=== PATIENT | female | born 1990 | race Caucasian/White ===

== ENCOUNTER → 2019-03-02 09:22 | Outpatient (CLI) | payer BC, SELFPAY ==
[2019-03-02 10:19] LABS: Add Manual Diff / Slide Review NO; Basophils Absolute Auto 0 /uL (0-100); Basophils Percent Auto 0.9 % (0-2); Eosinophils Absolute Auto 200 /uL (0-450); Eosinophils Percent Auto 4.2 % (2-4); Hematocrit 41.2 % (36-46); Lymphocytes Absolute Auto 2400 /uL (1100-4500); Lymphocytes Percent Auto 47.5 % (25-40); Mean Corpuscular HGB Conc 33.9 % (30-36); Mean Corpuscular Hemoglobin 31.6 PG (26-34); Mean Corpuscular Volume 93.3 fL (80-100); Monocytes Absolute Auto 400 /uL (0-900); Monocytes Percent Auto 7.4 % (3-14); Neutrophils Absolute Auto 2000 /uL (1500-7000); Platelet Count 239 X10^3/uL (150-400); Red Blood Cell Count 4.41 X10^6/uL (4.0-5.2); Red Cell Distribution Width 12.5 % (11.6-14.8)
[2019-03-02 11:43] LABS: Alanine Aminotransferase 17 IU/L (9-52); Albumin 4.5 g/dL (3.5-5.0); Albumin Globulin Ratio 1.6 (1.0-2.8); Alkaline Phosphatase 85 U/L (38-126); Aspartate Aminotransferase 18 IU/L (14-36); Bilirubin Total 0.4 mg/dL (0.2-1.3); Blood Urea Nitrogen 12 mg/dL (7-17); Calcium 9.1 mg/dL (8.4-10.2); Carbon Dioxide 27 mmol/L (22-32); Chloride 103 mmol/L (98-107); Cholesterol 143 mg/dL (140-199); Estimated Glomerular Filt Rate > 60.0 mL/min (>60); Globulin 2.8 g/dL (1.7-4.1); Glucose 91 mg/dL (70-100); HDL Cholesterol 62 mg/dL (40-60); HEMOLYSIS < 15 (0-50); LDL Cholesterol Calculated 69 mg/dL (<100); Potassium 4.5 mmol/L (3.4-5.1); Sodium 139 mmol/L (137-145); Total Protein 7.3 g/dL (6.3-8.2); Triglycerides 62 mg/dL (35-150)
[2019-03-02 12:08] LABS: TSH w/ Reflex to FT4 1.32 uIU/mL (0.47-4.68)
== END ==
PROVIDERS: Visit Provider Nurse Practitioner
DX: Z00.00 Encounter for general adult medical examination without abnormal findings (principal)
CPT/HCPCS: 36415; 80053; 80061; 84443; 85025

== ENCOUNTER → 2019-03-23 12:46 | Outpatient (CLI) | payer BC, SELFPAY ==
--- NOTE | 2019-03-23 12:48 | DI.US.S_ITS ---
LIMITED ULTRASOUND OF RIGHT BREAST: 03/23/2019 CLINICAL: Palpable right breast lump. Comparison is made [facility] Real-time and Doppler ultrasound of the right breast 4 o'clock region were performed. Pathak scale images of the real-time examination were reviewed. Targeted ultrasound was performed in the region of the patient's reported focal palpable abnormality located at the 4:00 position 3 cm from the nipple as indicated by the patient. No underlying breast mass or abnormality is identified. IMPRESSION: NEGATIVE 1) No ultrasound findings to explain patient's reported focal painful palpable abnormality in the medial right breast located at the 4:00 position 3 cm from the nipple as indicated by the patient. Recommend clinical follow-up for further evaluation and management of the patient's reported symptoms. 2) There is no sonographic evidence of malignancy in the imaged areas of the right breast. Annual screening mammography beginning at age 40 is recommended, unless earlier high-risk screening is warranted due to individual patient risk factors for the development of breast malignancy. The patient is advised to monitor her breasts and to return sooner for re-evaluation should she feel anything grow or change. This exam was interpreted at Station ID: [id number]. Electronically Signed By: Martin Garg M.D. ecl/:03/23/2019 13:51:36 letter sent: Clinical Evaluation Ultrasound BI-RADS: 1 Negative
--- NOTE | 2019-03-23 12:48 | DI.MG.S_ITS ---
BILATERAL DIGITAL DIAGNOSTIC MAMMOGRAM 3D/2D: 03/23/2019 CLINICAL: Baseline exam. Right breast lump. No prior exams were available for comparison. The tissue of both breasts is extremely dense, which lowers the sensitivity of mammography. There is a triangular marker overlying the skin of the medial right breast at the site of the patient's reported palpable abnormality. There is no underlying mammographic abnormality. No significant masses, calcifications, or other findings are seen in either breast. IMPRESSION: INCOMPLETE: NEEDS ADDITIONAL IMAGING EVALUATION No mammographic abnormality to correlate with the site of the patient's reported focal palpable abnormality of the medial right breast. Targeted diagnostic ultrasound recommended for further evaluation, which will be performed immediately following this exam. This exam was interpreted at Station ID: [id number]. NOTE: For mammograms, a report in lay terms will be sent to the patient. Approximately 15% of breast malignancies will not be visualized mammographically. In the management of a palpable breast mass, a negative mammogram must not discourage biopsy of a clinically suspicious lesion. Electronically Signed By: Martin Garg M.D. ecl/:03/23/2019 13:42:46 ACR BI-RADS Category 0: Incomplete [id number]
== END ==
PROVIDERS: PCP Nurse Practitioner; Visit Provider Nurse Practitioner
DX: R92.8 Other abnormal and inconclusive findings on diagnostic imaging of breast (principal); N64.4 Mastodynia; N63.14 Unspecified lump in the right breast, lower inner quadrant
CPT/HCPCS: 76642; 77066; G0279

== ENCOUNTER → 2020-05-17 12:28 | Outpatient (CLI) | payer BC, SELFPAY ==
--- NOTE | 2020-05-17 12:30 | DI.US.S_ITS ---
PROCEDURE: US PELVIC COMPLETE INDICATIONS: ABDOMINAL PAIN/PAINFUL PERIODS TECHNIQUE: Real-time scanning was performed of the pelvic organs, with image documentation. Additional endovaginal scanning was necessary due to incomplete visualization of the adnexal and endometrial structures by transabdominal scanning. COMPARISON: [facility], , PELVIC COMPLETE, 02/03/2018, 20:27. FINDINGS: Transabdominal scanning: Limited scanning through the kidneys shows no hydronephrosis. No pathologic free abdominal or pelvic fluid. Endovaginal scanning: Uterus: Uterus is normal in size at 4.5 x 5.1 x 7.6 cm, retroverted. The endometrium measures 9.4 mm in combined thickness. Ovaries: Normal on the right measuring 3.3 x 1.4 x 1.4 cm with several follicular cysts. The left ovary measures 2.7 x 1.1 x 1.5 cm and contains what appears to be a hemorrhagic left ovarian cyst measuring only 1.6 x 1.0 x 1.0 cm. Several adnexal prominent pelvic veins are noted, right greater than left. IMPRESSION: No evidence of uterine fibroid or endometrial lining mass or abnormal fluid collection. Incidental note is made of a left-sided small hemorrhagic ovarian cysts and several small right follicular cyst. A definite source of current symptomatology is not found. Dictated by: Cal Gross M.D. on 05/17/2020 at 14:58 Approved by: Cal Gross M.D. on 05/17/2020 at 15:01
== END ==
PROVIDERS: PCP Nurse Practitioner; Referring Provider Nurse Practitioner; Visit Provider Nurse Practitioner
DX: N94.6 Dysmenorrhea, unspecified (principal); R10.9 Unspecified abdominal pain; N83.01 Follicular cyst of right ovary; N83.202 Unspecified ovarian cyst, left side
CPT/HCPCS: 76830; 76856

== ENCOUNTER → 2020-10-30 10:26 | Outpatient (CLI) | payer BC, SELFPAY ==
[2020-10-31 07:08] LABS: Candida species Negative (Negative); Gardnerella vaginalis Negative (Negative); Trichomoas vaginalis Negative (Negative)
== END ==
PROVIDERS: PCP Nurse Practitioner; Visit Provider Obstetrics & Gynecology
DX: N89.8 Other specified noninflammatory disorders of vagina (principal)
CPT/HCPCS: 87480; 87510; 87660

== ENCOUNTER 2021-02-06 18:23 | Emergency (ER) | payer BC, SELFPAY ==
[2021-02-06 18:28] VITALS: BP 153/77; PULSE 78; RESP 18; TEMP 36.8; O2SAT 99
[2021-02-06 19:01] LABS: Add Manual Diff / Slide Review NO; Basophils Absolute Auto 0 /uL (0-100); Basophils Percent Auto 0.4 % (0-2); Eosinophils Absolute Auto 100 /uL (0-450); Hematocrit 39.3 % (36-46); Hemoglobin 13.7 g/dL (12.0-16.0); Lymphocytes Absolute Auto 3500 /uL (1100-4500); Lymphocytes Percent Auto 32.8 % (25-40); Mean Corpuscular HGB Conc 34.9 % (30-36); Mean Corpuscular Hemoglobin 31.8 PG (26-34); Monocytes Absolute Auto 600 /uL (0-900); Monocytes Percent Auto 5.5 % (3-14); Neutrophils Absolute Auto 6500 /uL (1500-7000); Neutrophils Percent Auto 60.3 % (50-75); Platelet Count 262 X10^3/uL (150-400); Red Blood Cell Count 4.32 X10^6/uL (4.0-5.2); Red Cell Distribution Width 12.3 % (11.6-14.8); White Blood Cell Count 10.7 X10^3/uL (4.5-11.0)
[2021-02-06 19:07] LABS: INR 1.1 (0.9-1.3); Prothrombin Time 12.3 SECONDS (10.1-12.7)
[2021-02-06 19:10] LABS: PTT Partial Thromboplastin Tim 34 SECONDS (26.4-36.2)
[2021-02-06 19:16] LABS: Alanine Aminotransferase 13 IU/L (<35); Albumin 4.5 g/dL (3.5-5.0); Albumin Globulin Ratio 1.5 (1.0-2.8); Alkaline Phosphatase 81 U/L (38-126); Aspartate Aminotransferase 24 IU/L (14-36); BUN Creatinine Ratio 12.9 (6-22); Bilirubin Total 0.3 mg/dL (0.2-1.3); Blood Urea Nitrogen 8 mg/dL (7-17); Calcium 9.5 mg/dL (8.4-10.2); Carbon Dioxide 26 mmol/L (22-32); Chloride 103 mmol/L (98-107); Estimated Glomerular Filt Rate > 60.0 mL/min (>60); Globulin 3.1 g/dL (1.7-4.1); Glucose 95 mg/dL (70-100); HEMOLYSIS < 15 (0-50); Lipase 57 U/L (23-300); Potassium 3.7 mmol/L (3.4-5.1); Sodium 137 mmol/L (137-145); Total Protein 7.6 g/dL (6.3-8.2)
--- NOTE | 2021-02-06 20:00 | ED.GENADULT ---
HPI - General Adult General Chief complaint: Abdominal Pain Stated complaint: bad abdominal pain, nausea, no appetite,acid feel Time Seen by Provider: 02/06/21 20:00 Source: patient Mode of arrival: Ambulatory Limitations: no limitations History of Present Illness HPI narrative: Patient is a 30-year-old female here for evaluation of upper abdominal pain for the past 2 days. She has also had some nausea and no appetite. She states that she recently completed a course of antibiotics for urinary tract infection that was prescribed by an outside facility. She has had ?stomach issues ?for some time now. She has seen her primary doctor. She has also seen a GI provider who was going to schedule her for a endoscopy and also a colonoscopy. She was unable to complete this because when she was doing the GI prep she became so dehydrated that she needed to come to the emergency department for IV fluids. States she has not followed up with GI provider since then. She states she has not had any imaging of her abdomen done up to this point. Has not tried anything for her symptoms prior to arrival. Related Data Home Medications Medication Instructions Recorded Confirmed lactobacillus combination no.8 3 3,000 mmu cells PO DAILY 07/10/20 12/11/20 billion cell capsule methylcellulose (laxative) 2 gram PO DAILY 07/10/20 12/11/20 Previous Rx's Medication Instructions Recorded ciprofloxacin HCl 500 mg tablet 500 mg PO BID #9 tab 01/30/21 Allergies Allergy/AdvReac Type Severity Reaction Status Date / Time No Known Drug Allergies Allergy Verified 02/06/21 20:04 Review of Systems Constitutional Constitutional: Denies fatigue, Denies fever(s) and Denies headache(s) ENT Ears, Nose, Mouth, and Throat: Denies headache(s) Cardiovascular Cardiovascular: Denies chest pain and Denies dyspnea Respiratory Respiratory: Denies dyspnea Gastrointestinal Gastrointestinal: Reports abdominal pain, Denies change in bowel habits, Reports nausea and Denies vomiting Genitourinary Genitourinary: Denies dysuria Genitourinary: Denies dysuria and Denies vaginal discharge Musculoskeletal Musculoskeletal: Denies arthralgias and Denies myalgias Integumentary/Breasts Skin/Breast: Denies rash Neurologic Neurologic: Denies behavioral changes and Denies headache(s) Psychiatric Psychiatric: Denies behavioral changes Endocrine Endocrine: Denies fatigue Hematologic/Lymphatic On Anticoagulants: No Allergic/Immunologic Allergic/Immunologic: Denies urticaria Patient History Medical History Abdominal pain Bloating Change in bowel habits Diarrhea Follicular cyst of left ovary Hemorrhagic cyst of right ovary Migraine with aura Surgical History Anesthesia History of thumb surgery (~1993) [place] teeth removed (~2010) Family History Father Hyperlipidemia Mother Breast cancer Hypertension Grandmother Diabetes mellitus Grandfather Prostate cancer Social History Smoking Status: Never smoker Smoking Status: Never smoker alcohol intake frequency: holidays/special occasions only Exam Initial Vital Signs Initial Vital Signs: Vital Signs Temperature 98.3 F 02/06/21 18:28 Pulse Rate 78 02/06/21 18:28 Respiratory Rate 18 02/06/21 18:28 Blood Pressure 153/77 H 02/06/21 18:28 Pulse Oximetry 99 02/06/21 18:28 Const General: cooperative, healthy appearing and comfortable Limitations: mental status not altered HENNV Head: normal to inspection and normocephalic Resp Effort & Inspection: normal respiratory effort Auscultation: clear to auscultation bilaterally Cardio Rate: regular rate Rhythm: regular rhythm GI Inspection: non-distended Palpation: soft, No firm, No guarding and tender (Upper abdomen) Skin Lesions: no lesions Rashes: no rashes Neuro General: patient alert, patient awake and patient oriented x3 Cognition: normal cognition Speech: speech normal Extrem General: normal to inspection and capillary refill normal Psych Appearance: grossly normal and well kempt Course Orders Ordered: Discontinued Medications Sodium Chloride (Normal Saline 0.9%) 1,000 mls @ 1,000 mls/hr IV BOLUS ONE Stop: 02/06/21 20:59 Last Infusion: 02/06/21 21:17 Dose: 0 mls/hr Documented by: Admin: 02/06/21 20:23 Dose: 1,000 mls/hr Documented by: ROSSI Ondansetron HCl (Ondansetron 4 Mg Odt Prepack) 1 bottle MISC SEEINSTR ONE Stop: 02/06/21 21:18 Last Admin: 02/06/21 21:22 Dose: 1 bottle Documented by: ROSSI Vital Signs Vital signs: Vital Signs - 8 hr 02/06/21 18:28 Temperature 98.3 F Pulse Rate 78 Respiratory Rate 18 Blood Pressure 153/77 H Pulse Oximetry 99 Medical Decision Making Lab Data Lab results reviewed: Yes I reviewed the patient's lab results. Result diagrams: 02/06/21 18:50 02/06/21 18:50 Labs: Lab Results 02/06/21 02/06/21 02/06/21 Range/Units 18:50 18:50 18:50 WBC 10.7 (4.5-11.0) X10^3/uL RBC 4.32 (4.0-5.2) X10^6/uL Hgb 13.7 (12.0-16.0) g/dL Hct 39.3 (36-46) % MCV 91.0 (80-100) fL MCH 31.8 (26-34) PG MCHC 34.9 (30-36) % RDW 12.3 (11.6-14.8) % Plt Count 262 (150-400) X10^3/uL Neut % (Auto) 60.3 (50-75) % Lymph % (Auto) 32.8 (25-40) % Dolores % (Auto) 5.5 (3-14) % Eos % (Auto) 1.0 L (2-4) % Baso % (Auto) 0.4 (0-2) % Neut # (Auto) 6500 (6338-7423) /uL Lymph # (Auto) 3500 (7701-0964) /uL Dolores # (Auto) 600 (0-900) /uL Eos # (Auto) 100 (0-450) /uL Baso # (Auto) 0 (0-100) /uL PT 12.3 (10.1-12.7) SECONDS INR 1.1 (0.9-1.3) APTT 34 (26.4-36.2) SECONDS Sodium 137 (137-145) mmol/L Potassium 3.7 (3.4-5.1) mmol/L Chloride 103 (98-107) mmol/L Carbon Dioxide 26 (22-32) mmol/L BUN 8 (7-17) mg/dL Creatinine 0.62 (0.52-1.04) mg/dL Estimated GFR > 60.0 (>60) mL/min BUN/Creatinine Ratio 12.9 (6-22) Glucose 95 (70-100) mg/dL Calcium 9.5 (8.4-10.2) mg/dL Total Bilirubin 0.3 (0.2-1.3) mg/dL AST 24 (14-36) IU/L ALT 13 (<35) IU/L Alkaline Phosphatase 81 (38-126) U/L Total Protein 7.6 (6.3-8.2) g/dL Albumin 4.5 (3.5-5.0) g/dL Globulin 3.1 (1.7-4.1) g/dL Albumin/Globulin Ratio 1.5 (1.0-2.8) Lipase 57 (23-300) U/L Point of Care Testing Test Results Negative Urine Dip Bedside Urine Glucose Negative Bedside Urine Bilirubin - Negative Bedside Urine Ketone + 15 Urine Specific [place] 1.030 Bedside Urine Occult Blood +/- Bedside Urine pH 6 Bedside Urine Protein - Negative Bedside Urine Urobilinogen - Negative Bedside Urine Nitrite - Negative Bedside Urine Leukocytes - Negative Esterase Point of care testing: Point of Care Testing Test Results Negative Urine Dip Bedside Urine Glucose Negative Bedside Urine Bilirubin - Negative Bedside Urine Ketone + 15 Urine Specific [place] 1.030 Bedside Urine Occult Blood +/- Bedside Urine pH 6 Bedside Urine Protein - Negative Bedside Urine Urobilinogen - Negative Bedside Urine Nitrite - Negative Bedside Urine Leukocytes - Negative Esterase Imaging Data CT scan - abdomen/pelvis: Radiologist's Impression: [address] [id number] Scan ReportSigned Patient: Sandy Horn EMR#: [id number]: [id number]:[id number]/Sex: 30 / FDate of Service: 02/06/21Loc: EDAccession Number: [id number] Procedure: CT abdomen pelvis w con Ordering Provider: Paolo Borrero D.O. PROCEDURE: CT ABDOMEN PELVIS W CON INDICATIONS: Generalized abdominal pain TECHNIQUE: After the administration of intravenous contrast, 5 mm thick sections acquired from the diaphragm to the symphysis. 5 mm coronal and sagittal reformats were acquired. For radiation dose reduction, the following was used: automated exposure control, adjustment of mA and/or kV according to patient size. COMPARISON: None. FINDINGS: Image quality: Excellent. ABDOMEN: Lung bases: Lung bases are clear. Heart size is normal. Solid organs: Liver is normal in size and enhancement. Gallbladder is normal. Biliary system is non dilated. Pancreas enhances normally. Spleen is normal in size and enhancement. No adrenal nodules. Kidneys demonstrate normal size and enhancement, without hydronephrosis. Peritoneum and bowel: Bowel loops demonstrate normal wall thickness and caliber. No free fluid or air. Normal appendix. Nodes and vessels: No retroperitoneal or mesenteric adenopathy by size criteria. Aorta and inferior vena cava are normal in size. Miscellaneous: No ventral hernias. PELVIS: Genitourinary: Bladder wall thickness is normal. Retroverted uterus. Normal right ovary. Dominant 2.2 cm follicle associated with the left ovary. Miscellaneous: No inguinal hernias or adenopathy. Bones: No suspicious bony lesions. No vertebral body compression fractures. IMPRESSION: 1. No acute process. Dictated by: Lesa Rod M.D. on 02/06/2021 at 20:56 Approved by: Lesa Rod M.D. on 02/06/2021 at 21:00 [facility] Narrative Medical decision making narrative: Patient has a very benign abdominal exam today. CT scan of her abdomen shows no acute pathology. Her gallbladder was normal the CT scan. Her labs are normal. LFTs lipase normal. Unfortunately do not have a definitive diagnosis of her symptoms. Informed her that she needs to contact the GI provider back so that she can get rescheduled to have the colonoscopy and endoscopy rescheduled. She is taking probiotics. No further workup needed the emergency department today. No indication for new antibiotic treatment. No indication for surgical consultation. She was given return precautions. She expressed understanding and agreement. Discharge Plan Departure Patient Disposition: Home Clinical Impression: Abdominal pain Instructions: DI for Abdominal Pain-Adult Activity Restrictions/Additional Instructions: You can take Tylenol and/or ibuprofen for any discomfort. I recommend you continue with your probiotic. You can also consider taking famotidine/Prilosec. This may help with your symptoms. Also contact your GI doctor for follow-up. Return to the emergency department for any new or worsening symptoms Prescriptions: No Action ciprofloxacin HCl 500 mg tablet 500 mg PO BID Qty: 9 RF: 0 Citrucel Sugar Free Powder 2 gram PO DAILY RF: 0 Adult Probiotic 3 billion cell capsule 3,000 mmu cells PO DAILY RF: 0 Referrals: Samantha Jacques ARNP [Primary Care Provider] -
[2021-02-06] MEDS: SODIUM CHLORIDE 0.9% 1,000 ML 1000 ML IV (20:23)
[2021-02-06 20:25] VITALS: BP 120/79; PULSE 83; O2SAT 99
[2021-02-06 20:30] VITALS: BP 122/79; PULSE 85; O2SAT 98
[2021-02-06 21:00] VITALS: BP 121/70; PULSE 79; O2SAT 99
[2021-02-06] MEDS: ONDANSETRON 4 MG ODT PREPACK 1 BOTTLE MISC (21:22)
== END 2021-02-06 21:27 | disposition home or self-care (01) ==
PROVIDERS: Emergency Provider Emergency Medicine; PCP Nurse Practitioner
DX: R10.10 Upper abdominal pain, unspecified (principal); R11.0 Nausea
CPT/HCPCS: 36415; 74177; 80053; 81003; 81025; 83690; 85025; 85610; 85730; 96360; 99284; Q9967

== ENCOUNTER → 2021-02-15 13:21 | Outpatient (CLI) | payer BC, SELFPAY ==
[2021-02-15 13:26] LABS: Bacteria Urine None Seen; WBC Urine None Seen (0-5/HPF)
[2021-02-15 14:29] LABS: Appearance Urine UA CLEAR; Bilirubin Urine UA NEGATIVE (NEGATIVE); Color Urine UA YELLOW; Glucose Urine UA NEGATIVE (Negative); Ketones Urine UA TRACE (NEGATIVE); Leukocyte Esterase Urine UA NEGATIVE (NEGATIVE); Nitrite Urine UA NEGATIVE (Negative); Occult Blood Urine UA 1+ (Negative); Protein Urine UA NEGATIVE (Negative); Specific Gravity Urine UA <=1.005 (1.000-1.035); Urobilinogen Urine UA 0.2 E.U./dL (0.2)
[2021-02-15 14:31] LABS: Add Manual Diff / Slide Review NO; Basophils Absolute Auto 0 /uL (0-100); Basophils Percent Auto 0.4 % (0-2); Eosinophils Absolute Auto 100 /uL (0-450); Eosinophils Percent Auto 0.6 % (2-4); Hemoglobin 14.4 g/dL (12.0-16.0); Lymphocytes Absolute Auto 3200 /uL (1100-4500); Mean Corpuscular HGB Conc 34.2 % (30-36); Mean Corpuscular Hemoglobin 31.6 PG (26-34); Mean Corpuscular Volume 92.4 fL (80-100); Monocytes Absolute Auto 600 /uL (0-900); Neutrophils Absolute Auto 5600 /uL (1500-7000); Platelet Count 261 X10^3/uL (150-400); Red Blood Cell Count 4.55 X10^6/uL (4.0-5.2); Red Cell Distribution Width 12.5 % (11.6-14.8); White Blood Cell Count 9.4 X10^3/uL (4.5-11.0)
[2021-02-15 14:34] LABS: pH Urine UA 5.5 (4.5-8.0)
[2021-02-15 14:36] LABS: Culture Indicated Urine Cult Not Indicated; RBC Urine 1-5/HPF (0-5/HPF)
[2021-02-15 15:01] LABS: HCG Quantitative /Beta subunit < 2.4 mIU/mL
[2021-02-15 15:04] LABS: Free T3, Triiodothyronine Free 3.02 pg/mL (2.77-5.27); Free T4, Direct Thyroxine 1.22 ng/dL (0.78-2.19)
[2021-02-15 15:17] LABS: Thyroid Stimulating Hormone 0.735 uIU/mL (0.47-4.68)
== END ==
PROVIDERS: PCP Nurse Practitioner; Referring Provider Nurse Practitioner; Visit Provider Nurse Practitioner
DX: Z00.00 Encounter for general adult medical examination without abnormal findings (principal); N91.2 Amenorrhea, unspecified; R10.2 Pelvic and perineal pain
CPT/HCPCS: 36415; 81001; 84439; 84443; 84481; 84702; 85025

== ENCOUNTER → 2021-02-21 15:25 | Outpatient (CLI) | payer BC, SELFPAY ==
--- NOTE | 2021-02-21 15:26 | DI.US.S_ITS ---
PROCEDURE: US PELVIC COMPLETE INDICATIONS: ABDOMINAL/PELVIC PAIN TECHNIQUE: Real-time scanning was performed of the pelvic organs, with image documentation. Additional endovaginal scanning was necessary due to incomplete visualization of the adnexal and endometrial structures by transabdominal scanning. COMPARISON: [facility], US, US PELVIC COMPLETE, 07/10/2020, 10:19. FINDINGS: Uterus: Uterus is normal in size measuring 8.3 x 5.5 x 4.8 cm. . The endometrium measures 4.5 mm in combined thickness. A nabothian cyst is seen. Ovaries: The right ovary measures 3.6 x 1.2 x 1.2 cm. The left ovary measures 4.1 x 1.2 x 1.9 cm. Normal appearing follicles are seen bilaterally. The left ovary has a 4 x 3 x 5 millimeter hyperechoic focus consistent with corpus albicans, a benign incidental finding. Other: Prevoid volume was 352 cc. Postvoid volume was 136 cc. Bilateral ureteral jets are identified. IMPRESSION: 1. No acute ultrasound abnormality of the pelvis. 2. Normal appearing follicles bilaterally. Dictated by: Eddy Lake M.D. on 02/21/2021 at 17:29 Approved by: Eddy Lake M.D. on 02/22/2021 at 8:37
== END ==
PROVIDERS: PCP Nurse Practitioner; Referring Provider Nurse Practitioner; Visit Provider Nurse Practitioner
DX: R10.2 Pelvic and perineal pain (principal)
CPT/HCPCS: 76830; 76856

== ENCOUNTER → 2021-02-27 09:16 | Outpatient (CLI) | payer BC, SELFPAY ==
[2021-02-27 10:07] LABS: Alanine Aminotransferase 13 IU/L (<35); Albumin 4.6 g/dL (3.5-5.0); Albumin Globulin Ratio 1.5 (1.0-2.8); Alkaline Phosphatase 75 U/L (38-126); Aspartate Aminotransferase 26 IU/L (14-36); BUN Creatinine Ratio 14.1 (6-22); Bilirubin Total 0.3 mg/dL (0.2-1.3); Blood Urea Nitrogen 9 mg/dL (7-17); Calcium 9.5 mg/dL (8.4-10.2); Carbon Dioxide 28 mmol/L (22-32); Chloride 102 mmol/L (98-107); Cholesterol 158 mg/dL (140-199); Estimated Glomerular Filt Rate > 60.0 mL/min (>60); Globulin 3.1 g/dL (1.7-4.1); Glucose 107 mg/dL (70-100); HDL Cholesterol 61 mg/dL (40-60); HEMOLYSIS < 15 (0-50); LDL Cholesterol Calculated 87 mg/dL (<100); Potassium 3.9 mmol/L (3.4-5.1); Sodium 138 mmol/L (137-145); Total Protein 7.7 g/dL (6.3-8.2); Triglycerides 50 mg/dL (35-150)
== END ==
PROVIDERS: PCP Nurse Practitioner; Referring Provider Nurse Practitioner; Visit Provider Nurse Practitioner
DX: Z00.00 Encounter for general adult medical examination without abnormal findings (principal)
CPT/HCPCS: 36415; 80053; 80061

== ENCOUNTER → 2021-04-09 13:00 | Outpatient (CLI) | payer BC, SELFPAY ==
[2021-04-12 09:58] LABS: Chili Pepper IgE <0.10 kU/L (Class 0); Goat's Milk IgE <0.10 kU/L (Class 0); Grape IgE <0.10 kU/L (Class 0); Green Bell Pepper IgE <0.10 kU/L (Class 0); Hazelnut IgE <0.10 kU/L (Class 0); Macadamia Nut IgE <0.10 kU/L (Class 0); Pistachio Nut IgE <0.10 kU/L (Class 0)
== END ==
PROVIDERS: PCP Nurse Practitioner; Referring Provider Nurse Practitioner; Visit Provider Nurse Practitioner
DX: G44.89 Other headache syndrome (principal); K58.9 Irritable bowel syndrome, unspecified; T78.1XXA Other adverse food reactions, not elsewhere classified, initial encounter
CPT/HCPCS: 36415; 86003

== ENCOUNTER → 2021-05-06 13:57 | Outpatient (CLI) | payer BC, SELFPAY ==
--- NOTE | 2021-05-06 13:59 | DI.MRI.S_ITS ---
PROCEDURE: MR HEAD/BRAIN WO/W CON INDICATIONS: Facial myokymia TECHNIQUE: Noncontrast sagittal T1 spin echo, axial T2 fast spin echo, axial FLAIR, axial gradient echo, axial diffusion and ADC through the brain. Axial/sagittal/coronal 3-D CISS, thin-slice axial T1 spin echo with fat saturation through the skull base. After the administration of contrast, axial and coronal thin-slice T1 spin echo with fat saturation through the skull base, axial T1 spin echo with fat saturation through the brain. COMPARISON: None. FINDINGS: Image quality: Excellent. Cranial nerves: Visualized cranial nerves are within normal limits. Specifically, the optic nerves, bilateral trigeminal nerves, and bilateral 7/8 nerve complexes are within normal limits. Trochlear and abducens nerves are within normal limits. CSF spaces: Ventricles are normal in size and shape. No extra-axial fluid collections. Basal cisterns are patent. Brain: No intracranial bleeds or mass effects. No abnormal intracranial enhancement. Diffusion weighted images show no acute ischemic insults. Pathak-white matter interface is intact. Brainstem is normal. Normal intravascular flow voids are present. Skull and face: Calvarial marrow signal is normal. Orbits appear normal. Sinuses: Sinuses and mastoids appear clear. IMPRESSION: 1. Negative examination. 2. No explanation for myokymia. Dictated by: Porfirio Randolph M.D. on 05/06/2021 at 14:41 Approved by: Porfirio Randolph M.D. on 05/06/2021 at 14:46
== END ==
PROVIDERS: PCP Nurse Practitioner; Referring Provider Otolaryngology; Visit Provider Otolaryngology
DX: G51.4 Facial myokymia (principal); R51.9 Headache, unspecified
CPT/HCPCS: 70553

== ENCOUNTER → 2021-05-13 12:16 | Outpatient (CLI) | payer BC, SELFPAY ==
[2021-05-14 15:49] LABS: Candida species Negative (Negative); Gardnerella vaginalis Negative (Negative); Trichomoas vaginalis Negative (Negative)
== END ==
PROVIDERS: PCP Nurse Practitioner; Visit Provider Obstetrics & Gynecology
DX: N89.8 Other specified noninflammatory disorders of vagina (principal); N94.9 Unspecified condition associated with female genital organs and menstrual cycle; R10.2 Pelvic and perineal pain
CPT/HCPCS: 87480; 87510; 87660

== ENCOUNTER → 2021-06-06 11:45 | Outpatient (CLI) | payer BC, SELFPAY ==
[2021-06-06 11:58] LABS: WBC Urine None Seen (0-5/HPF)
[2021-06-06 13:19] LABS: Appearance Urine UA CLEAR; Bilirubin Urine UA NEGATIVE (NEGATIVE); Color Urine UA YELLOW; Glucose Urine UA NEGATIVE (Negative); Ketones Urine UA NEGATIVE (NEGATIVE); Leukocyte Esterase Urine UA NEGATIVE (NEGATIVE); Nitrite Urine UA NEGATIVE (Negative); Occult Blood Urine UA 1+ (Negative); Protein Urine UA NEGATIVE (Negative); Specific Gravity Urine UA <=1.005 (1.000-1.035); Urobilinogen Urine UA 0.2 E.U./dL (0.2)
[2021-06-06 13:36] LABS: Bacteria Urine Occasional (0-1); Culture Indicated Urine Cult Not Indicated; RBC Urine 1-5/HPF (0-5/HPF); Squamous Epithelial Cell Urine 0-1 /HPF (0-5/HPF); pH Urine UA 6.5 (4.5-8.0)
== END ==
PROVIDERS: PCP Nurse Practitioner; Referring Provider Nurse Practitioner; Visit Provider Obstetrics & Gynecology
DX: R30.0 Dysuria (principal); R39.89 Other symptoms and signs involving the genitourinary system
CPT/HCPCS: 81001; 87086

== ENCOUNTER → 2021-06-07 11:27 | Outpatient (CLI) | payer BC, SELFPAY ==
[2021-06-08 07:16] LABS: RPR Screen Non Reactive (Non Reactive)
[2021-06-08 20:30] LABS: HSV I/II IgM <0.91 Ratio (0.00-0.90)
[2021-06-10 17:43] LABS: HIV 1 & 2 Ab/Ag 4th Gen Combo NEGATIVE (NEGATIVE); Hep C Virus Ab w/Reflex Quant NEGATIVE s/c (NEGATIVE); Hepatitis B Surface Antigen NEGATIVE s/c (NEGATIVE)
== END ==
PROVIDERS: PCP Nurse Practitioner; Referring Provider Nurse Practitioner; Visit Provider Nurse Practitioner
DX: Z77.21 Contact with and (suspected) exposure to potentially hazardous body fluids (principal)
CPT/HCPCS: 36415; 86592; 86694; 86803; 87340; 87389

== ENCOUNTER → 2021-06-10 12:29 | Outpatient (CLI) | payer BC, SELFPAY ==
--- NOTE | 2021-06-10 12:30 | DI.US.S_ITS ---
PROCEDURE: US PELVIC COMPLETE INDICATIONS: PELVIC PAIN TECHNIQUE: Real-time scanning was performed of the pelvic organs, with image documentation. Additional endovaginal scanning was necessary due to incomplete visualization of the adnexal and endometrial structures by transabdominal scanning. COMPARISON: [facility], , US PELVIC COMPLETE, 02/21/2021, 16:02. FINDINGS: Uterus: Uterus is normal in size at 7.3 x 4.1 x 5.3 cm. The endometrium measures 3.5 mm in combined thickness. Ovaries: Normal exam. Ovaries measuring 3.1 x 1.2 x 1.7 cm on the right and 4.0 x 1.3 x 1.1 cm on the left. No adnexal masses seen. Other: No pathologic free abdominal or pelvic fluid. IMPRESSION: No source for pelvic pain identified. Dictated by: Stephane Cui [facility] Interpreted: Cal Gross MD on 06/10/2021 at 13:43 Transcribed by: MINOO on 06/10/2021 at 13:44 Approved by: Cal Gross M.D. on 06/10/2021 at 16:37
== END ==
PROVIDERS: PCP Nurse Practitioner; Referring Provider Obstetrics & Gynecology; Visit Provider Obstetrics & Gynecology
DX: R10.2 Pelvic and perineal pain (principal)
CPT/HCPCS: 76830; 76856

== ENCOUNTER → 2021-06-12 11:55 | Outpatient (CLI) | payer BC, SELFPAY ==
--- NOTE | 2021-06-12 12:22 | DI.CT.S_ITS ---
PROCEDURE: CT KIDNEY URETER BLADDER (KUB) INDICATIONS: Rule out kidney stones TECHNIQUE: Axial sections were acquired from the lung bases to the pubic symphysis. Coronal and sagittal reformats were performed. For radiation dose reduction, the following was used: automated exposure control, adjustment of mA and/or kV according to patient size. COMPARISON:[facility], CT, CT ABDOMEN PELVIS W CON, 02/06/2021, 20:03. FINDINGS: Image quality: Excellent. Lung bases: Unremarkable. Heart: No significant findings. URINARY: Right Kidney: No stones or hydronephrosis. Right Ureter: No hydroureter. Left Kidney: No stones or hydronephrosis. Left Ureter: No hydroureter. Bladder: Normal wall thickness. No stones. ABDOMEN: Liver: Unremarkable. Gallbladder: Unremarkable. Biliary ducts: Unremarkable. Pancreas: Unremarkable. Spleen: Unremarkable. Adrenal Glands: Unremarkable. Stomach and Bowel: Stomach, small bowel loops, and colon are unremarkable. Moderate amount of stool noted in the right and transverse colon. Visualized portions of the appendix are normal. Peritoneum: No abnormal intraperitoneal fluid. No free air. Ventral Wall: No hernia. Abdominal Nodes: No enlarged retroperitoneal or mesenteric lymph nodes. Vessels: Aorta and inferior vena cava are normal in size. PELVIS: Pelvic Organs: Unremarkable. Multiple pelvic phleboliths are noted which are stable compared to prior CT scan. Pelvic Nodes: Unremarkable. Miscellaneous: No inguinal hernias are seen. Bones: Unremarkable. IMPRESSION: 1. No renal stone or hydronephrosis. 2. No free fluid or free air. 3. Visualized portions of the appendix are normal. Please note the appendix is not identified in its entirety and earliest manifestation of appendicitis is not completely excluded by this study. 4. No dilated loops of bowel. 5. Moderate fecal loading involving the right and transverse colon. Dictated by: Melisa Reinoso MD, PhD on 06/12/2021 at 13:16 Approved by: Melisa Reinoso MD, PhD on 06/12/2021 at 13:22
== END ==
PROVIDERS: PCP Nurse Practitioner; Referring Provider Nurse Practitioner; Visit Provider Nurse Practitioner
DX: R31.9 Hematuria, unspecified (principal); R30.0 Dysuria; M54.9 Dorsalgia, unspecified
CPT/HCPCS: 74176

== ENCOUNTER → 2021-07-03 16:09 | Outpatient (CLI) | payer BC, SELFPAY ==
[2021-07-03 20:18] LABS: Bacteria Urine None Seen; WBC Urine None Seen (0-5/HPF)
[2021-07-03 20:29] LABS: Appearance Urine UA CLEAR; Bilirubin Urine UA NEGATIVE (NEGATIVE); Color Urine UA YELLOW; Glucose Urine UA NEGATIVE (Negative); Ketones Urine UA NEGATIVE (NEGATIVE); Leukocyte Esterase Urine UA NEGATIVE (NEGATIVE); Nitrite Urine UA NEGATIVE (Negative); Occult Blood Urine UA 3+ (Negative); Protein Urine UA NEGATIVE (Negative); Urobilinogen Urine UA 0.2 E.U./dL (0.2)
[2021-07-03 20:48] LABS: pH Urine UA 6.5 (4.5-8.0)
[2021-07-03 20:55] LABS: Culture Indicated Urine Cult Not Indicated; RBC Urine 5-10/HPF (0-5/HPF)
[2021-07-03 21:57] LABS: Urine N gonorrhoeae NOT DETECTED
[2021-07-03 22:18] LABS: Urine Chlamydia NOT DETECTED
== END ==
PROVIDERS: PCP Nurse Practitioner; Visit Provider Obstetrics & Gynecology
DX: R30.0 Dysuria (principal); R10.2 Pelvic and perineal pain; Z11.3 Encounter for screening for infections with a predominantly sexual mode of transmission
CPT/HCPCS: 81001; 87491; 87591

== ENCOUNTER → 2021-07-11 09:35 | Outpatient (CLI) | payer BC, SELFPAY ==
[2021-07-11 10:54] LABS: Appearance Urine UA CLEAR; Bilirubin Urine UA NEGATIVE (NEGATIVE); Glucose Urine UA NEGATIVE (Negative); Ketones Urine UA NEGATIVE (NEGATIVE); Leukocyte Esterase Urine UA NEGATIVE (NEGATIVE); Nitrite Urine UA NEGATIVE (Negative); Occult Blood Urine UA NEGATIVE (Negative); Protein Urine UA NEGATIVE (Negative); Specific Gravity Urine UA <=1.005 (1.000-1.035); Urobilinogen Urine UA 0.2 E.U./dL (0.2)
[2021-07-11 11:31] LABS: Bacteria Urine None Seen; Color Urine UA STRAW; Culture Indicated Urine Cult Not Indicated; RBC Urine None Seen (0-5/HPF); Squamous Epithelial Cell Urine 1-5 /HPF (0-5/HPF); WBC Urine None Seen (0-5/HPF)
== END ==
PROVIDERS: PCP Nurse Practitioner; Referring Provider Nurse Practitioner; Visit Provider Nurse Practitioner
DX: R31.9 Hematuria, unspecified (principal); R10.2 Pelvic and perineal pain
CPT/HCPCS: 81001

== ENCOUNTER → 2021-11-04 10:33 | Outpatient (CLI) | payer BC, SELFPAY ==
--- NOTE | 2021-11-04 10:35 | DI.CT.S_ITS ---
PROCEDURE: CT ABDOMEN PELVIS WO/W CON INDICATIONS: Microscopic hematuria TECHNIQUE: Optional 5 mm thick noncontrast images acquired from the diaphragm to the symphysis pubis. After the administration of intravenous contrast, 5 mm thick images acquired from the diaphragm to the symphysis pubis after a 10-minute delay. 2 mm thick coronal and sagittal reformats were then performed of the kidneys and ureters. For radiation dose reduction, the following was used: automated exposure control, adjustment of mA and/or kV according to patient size. COMPARISON: None. FINDINGS: Image quality: Excellent. Lung bases: Lung bases are clear. Heart size is normal. Urinary system: No urinary tract calculus, hydroureteronephrosis, perinephric fat stranding, or other significant renal abnormality identified. Symmetric nephrograms. No renal mass. Urinary bladder unremarkable. Other solid organs: Normal CT appearance of the liver, spleen, pancreas, and gallbladder. No adrenal gland nodule or mass. Peritoneum and bowel: No acute enteric abnormality. Nodes and vessels: No threshold enlarged intra-abdominal or retroperitoneal lymph node identified. Nonaneurysmal abdominal aorta. Abdominal wall: No ventral hernias. Pelvis: Small volume free pelvic fluid. Grossly unremarkable uterus and ovaries. No threshold enlarged pelvic or inguinal lymph node. Bones: No suspicious bony lesions. No vertebral body compression fractures. IMPRESSION: No urinary tract calculus or other explanation for hematuria. Dictated by: Keo Alejandra M.D. on 11/04/2021 at 10:42 Approved by: Keo Alejandra M.D. on 11/04/2021 at 10:45
== END ==
PROVIDERS: PCP Nurse Practitioner; Referring Provider Urology; Visit Provider Urology
DX: R30.0 Dysuria (principal); R31.29 Other microscopic hematuria; Z77.22 Contact with and (suspected) exposure to environmental tobacco smoke (acute) (chronic)
CPT/HCPCS: 74178

== ENCOUNTER → 2022-02-18 16:55 | Outpatient (CLI) | payer BC, SELFPAY | PROVIDERS: PCP Nurse Practitioner; Visit Provider Obstetrics & Gynecology | DX: R30.0 Dysuria (principal); R35.89 Other polyuria | CPT/HCPCS: 87086 ==

== ENCOUNTER → 2022-03-04 13:08 | Outpatient (CLI) | payer BC, SELFPAY ==
--- NOTE | 2022-03-04 13:09 | DI.US.S_ITS ---
PROCEDURE: US OB <= 14 WEEKS FETUS INDICATIONS: VIABILITY AND DATES OUTSIDE/PRIOR DATING DATA: Last menstrual period (LMP): 12/25/2021. LMP-based estimated date of delivery (LG): 10/01/2022. First dating scan (date and location): 03/04/2022. Estimated date of delivery (LG) from first dating scan: 10/04/2022. The calculations are made using the ultrasound LG of 10/04/2022. TECHNIQUE: Real-time scanning was performed of the fetus and maternal pelvic organs, with image documentation. Endovaginal scanning was also performed to better visualize the fetus and maternal ovaries. COMPARISON: None. FINDINGS: Embryo: Mean gestational sac diameter 3.3 centimeters. Luis M. Cintron-rump length 2.6 centimeters. Heart rate: 171 beats per minute Maternal organs: Ovaries normal. IMPRESSION: Single live intrauterine gestation with estimated ultrasound age of 9 weeks 3 days. Estimated date of delivery 10/04/2022. We strive to produce accurate, complete, and clear reports of imaging services. To assist us in improving patient care, this report was composed using standard report templates and voice recognition software. Therefore, it may contain abnormal punctuation, insertions and/or omissions. Occasional wrong-word or sound-alike substitutions may occur. Though we review the report and make efforts to correct it, we do recommend that the report be read carefully in proper context to recognize any text inaccuracies. Dictated by: Keo Alejandra M.D. on 03/04/2022 at 15:14 Approved by: Keo Alejandra M.D. on 03/04/2022 at 15:15
[2022-03-04 15:13] LABS: Add Manual Diff / Slide Review NO; Basophils Absolute Auto 0 /uL (0-100); Basophils Percent Auto 0.3 % (0-2); Eosinophils Absolute Auto 200 /uL (0-450); Eosinophils Percent Auto 1.7 % (2-4); Hematocrit 38.9 % (36-46); Hemoglobin 13.4 g/dL (12.0-16.0); Lymphocytes Absolute Auto 2900 /uL (1100-4500); Lymphocytes Percent Auto 27.1 % (25-40); Mean Corpuscular HGB Conc 34.4 % (30-36); Mean Corpuscular Hemoglobin 31.7 PG (26-34); Mean Corpuscular Volume 92.1 fL (80-100); Monocytes Absolute Auto 600 /uL (0-900); Monocytes Percent Auto 5.7 % (3-14); Neutrophils Absolute Auto 6900 /uL (1500-7000); Neutrophils Percent Auto 65.2 % (50-75); Platelet Count 278 X10^3/uL (150-400); Red Blood Cell Count 4.23 X10^6/uL (4.0-5.2); Red Cell Distribution Width 12.6 % (11.6-14.8); White Blood Cell Count 10.6 X10^3/uL (4.5-11.0)
[2022-03-04 17:57] LABS: Appearance Urine UA CLEAR; Bilirubin Urine UA NEGATIVE (NEGATIVE); Color Urine UA YELLOW; Glucose Urine UA NEGATIVE (Negative); Ketones Urine UA NEGATIVE (NEGATIVE); Leukocyte Esterase Urine UA NEGATIVE (NEGATIVE); Nitrite Urine UA NEGATIVE (Negative); Occult Blood Urine UA NEGATIVE (Negative); Protein Urine UA NEGATIVE (Negative); Specific Gravity Urine UA <=1.005 (1.000-1.035); Urobilinogen Urine UA 0.2 E.U./dL (0.2)
[2022-03-04 18:18] LABS: pH Urine UA 6.5 (4.5-8.0)
[2022-03-05 08:08] LABS: RPR Screen Non Reactive (Non Reactive)
[2022-03-05 10:03] LABS: Varicella IgG Antibody <135 index (Immune >165)
[2022-03-06 16:04] LABS: Hepatitis B Surface Antigen NEGATIVE s/c (NEGATIVE)
[2022-03-06 16:06] LABS: HIV 1 & 2 Ab/Ag 4th Gen Combo NEGATIVE (NEGATIVE); Hep C Virus Ab w/Reflex Quant NEGATIVE s/c (NEGATIVE)
== END ==
PROVIDERS: PCP Nurse Practitioner; Referring Provider Obstetrics & Gynecology; Visit Provider Obstetrics & Gynecology
DX: Z36.87 Encounter for antenatal screening for uncertain dates (principal); Z3A.09 9 weeks gestation of pregnancy
CPT/HCPCS: 36415; 76801; 80055; 81003; 86787; 86803; 86850; 86900; 86901; 87086; 87389

== ENCOUNTER → 2022-04-09 12:27 | Outpatient (CLI) | payer BC, SELFPAY ==
[2022-04-11 19:17] LABS: AFP, Serum 15.6 ng/mL (.); Estriol, Free 0.36 ng/mL (.); Inhibin A, Dimeric 161.01 pg/mL (.); Inhibin A, MoM 0.97 (.); Maternal Ethnicity Caucasian (.); Maternal Weight 154 lbs (.); Number of Fetuses No (.); OSBR Risk 1 IN 10000 (.); Results Report (.); Test Results *Screen Positive* (.); hCG, MoM 1.88 (.); hCG, Serum 103631 mIU/mL (.)
== END ==
PROVIDERS: PCP Nurse Practitioner; Referring Provider Obstetrics & Gynecology; Visit Provider Obstetrics & Gynecology
DX: Z34.82 Encounter for supervision of other normal pregnancy, second trimester (principal); Z3A.15 15 weeks gestation of pregnancy
CPT/HCPCS: 36415; 82105; 82677; 84702; 86336

== ENCOUNTER → 2022-05-20 12:11 | Outpatient (CLI) | payer BC, SELFPAY ==
[2022-05-20 12:37] LABS: Add Manual Diff / Slide Review NO; Basophils Absolute Auto 0 /uL (0-100); Basophils Percent Auto 0.4 % (0-2); Eosinophils Absolute Auto 100 /uL (0-450); Hematocrit 38.2 % (36-46); Hemoglobin 12.9 g/dL (12.0-16.0); Lymphocytes Absolute Auto 2600 /uL (1100-4500); Lymphocytes Percent Auto 29.8 % (25-40); Mean Corpuscular HGB Conc 33.6 % (30-36); Mean Corpuscular Volume 92.2 fL (80-100); Monocytes Absolute Auto 500 /uL (0-900); Monocytes Percent Auto 5.5 % (3-14); Neutrophils Absolute Auto 5400 /uL (1500-7000); Neutrophils Percent Auto 63.3 % (50-75); Platelet Count 263 X10^3/uL (150-400); Red Blood Cell Count 4.15 X10^6/uL (4.0-5.2); Red Cell Distribution Width 12.5 % (11.6-14.8); White Blood Cell Count 8.6 X10^3/uL (4.5-11.0)
[2022-05-20 12:59] LABS: Erythrocyte Sedimentation Rate 11 MM/HR (0-20)
== END ==
PROVIDERS: PCP Nurse Practitioner; Referring Provider Obstetrics & Gynecology; Visit Provider Obstetrics & Gynecology
DX: R10.2 Pelvic and perineal pain (principal)
CPT/HCPCS: 36415; 85025; 85651

== ENCOUNTER → 2022-05-21 08:07 | Outpatient (CLI) | payer BC, SELFPAY ==
--- NOTE | 2022-05-21 08:09 | DI.US.S_ITS ---
PROCEDURE: US PELVIC COMPLETE INDICATIONS: S/P D C 04/25/2022; please evaluate for retained tissue/hematometra TECHNIQUE: Real-time scanning was performed of the pelvic organs, with image documentation. Additional endovaginal scanning was necessary due to incomplete visualization of the adnexal and endometrial structures by transabdominal scanning. COMPARISON: [facility], , US PELVIC COMPLETE, 06/10/2021, 12:08. FINDINGS: Uterus: Uterus is retroverted and normal in size at 9 x 8.1 x 5.3 cm. The myometrium is homogeneous. The endometrium measures 9 mm combined thickness. The endometrial stripe appears hypoechoic and mildly heterogeneous. No abnormal vascularity can be seen along the endometrial stripe. Note is made of prominent vessels along the surface of the uterus. Ovaries: The right ovary measures 3 x 3 x 1.7 cm and demonstrates an apparent cyst that measures up to 2 cm, which is considered to be within physiologic limits. The left ovary measures 2.4 x 1.2 x 2.7 cm. The ovaries have a normal sonographic appearance. No adnexal masses are seen. Other: No pathologic free abdominal or pelvic fluid. Note is made of dilated vessels within the left adnexal region, with the largest vessel measuring up to 6.7 mm. IMPRESSION: No abnormal vascularity can be seen along the endometrial stripe to suggest retained products of conception. Dilated uterine vessels and left adnexal vessels are seen. Please consider pelvic congestion syndrome. We strive to produce accurate, complete, and clear reports of imaging services. To assist us in improving patient care, this report was composed using standard report templates and voice recognition software. Therefore, it may contain abnormal punctuation, insertions and/or omissions. Occasional wrong-word or sound-alike substitutions may occur. Though we review the report and make efforts to correct it, we do recommend that the report be read carefully in proper context to recognize any text inaccuracies. Dictated by: Bashir Razo M.D. on 05/21/2022 at 8:22 Approved by: Bashir Razo M.D. on 05/21/2022 at 8:24
== END ==
PROVIDERS: PCP Nurse Practitioner; Referring Provider Obstetrics & Gynecology; Visit Provider Obstetrics & Gynecology
DX: R10.2 Pelvic and perineal pain (principal)
CPT/HCPCS: 76830; 76856

== ENCOUNTER → 2022-06-11 15:05 | Outpatient (CLI) | payer BC, SELFPAY ==
[2022-06-11 16:23] LABS: Add Manual Diff / Slide Review NO; Basophils Absolute Auto 0 /uL (0-100); Basophils Percent Auto 0.6 % (0-2); Eosinophils Absolute Auto 200 /uL (0-450); Eosinophils Percent Auto 2.1 % (2-4); Hematocrit 39.4 % (36-46); Hemoglobin 13.9 g/dL (12.0-16.0); Lymphocytes Absolute Auto 3300 /uL (1100-4500); Mean Corpuscular HGB Conc 35.4 % (30-36); Mean Corpuscular Hemoglobin 32.4 PG (26-34); Mean Corpuscular Volume 91.5 fL (80-100); Monocytes Absolute Auto 600 /uL (0-900); Monocytes Percent Auto 6.6 % (3-14); Neutrophils Absolute Auto 4400 /uL (1500-7000); Neutrophils Percent Auto 51.7 % (50-75); Platelet Count 277 X10^3/uL (150-400); Red Cell Distribution Width 11.8 % (11.6-14.8); White Blood Cell Count 8.5 X10^3/uL (4.5-11.0)
[2022-06-11 16:34] LABS: Appearance Urine UA CLEAR; Bilirubin Urine UA NEGATIVE (NEGATIVE); Color Urine UA YELLOW; Glucose Urine UA NEGATIVE (Negative); Ketones Urine UA NEGATIVE (NEGATIVE); Leukocyte Esterase Urine UA NEGATIVE (NEGATIVE); Nitrite Urine UA NEGATIVE (Negative); Occult Blood Urine UA 1+ (Negative); Protein Urine UA NEGATIVE (Negative); Specific Gravity Urine UA <=1.005 (1.000-1.035); Urobilinogen Urine UA 0.2 E.U./dL (0.2)
[2022-06-11 16:35] LABS: Erythrocyte Sedimentation Rate 6 MM/HR (0-20)
[2022-06-11 16:43] LABS: Alanine Aminotransferase 10 IU/L (<35); Albumin 4.3 g/dL (3.5-5.0); Albumin Globulin Ratio 1.3 (1.0-2.8); Alkaline Phosphatase 76 U/L (38-126); Aspartate Aminotransferase 20 IU/L (14-36); BUN Creatinine Ratio 18.5 (6-22); Bilirubin Total 0.2 mg/dL (0.2-1.3); Blood Urea Nitrogen 12 mg/dL (7-17); C-Reactive Protein Quant 0.9 mg/dL (<1.0); Calcium 8.9 mg/dL (8.4-10.2); Carbon Dioxide 26 mmol/L (22-32); Chloride 102 mmol/L (98-107); Estimated Glomerular Filt Rate > 60 mL/min (>60); Globulin 3.2 g/dL (1.7-4.1); Glucose 90 mg/dL (70-100); HEMOLYSIS < 15 (0-50); Potassium 4.2 mmol/L (3.4-5.1); Sodium 137 mmol/L (137-145); Total Protein 7.5 g/dL (6.3-8.2)
[2022-06-11 16:46] LABS: Amorphous Sediment Urine 1+; Bacteria Urine None Seen; Culture Indicated Urine Cult Not Indicated; RBC Urine 0-1/HPF (0-5/HPF); Squamous Epithelial Cell Urine 5-10 /HPF (0-5/HPF); WBC Urine None Seen (0-5/HPF)
[2022-06-11 17:07] LABS: HEMOLYSIS < 15 (0-50)
[2022-06-11 17:21] LABS: Vitamin B12 608 pg/mL (239-931)
[2022-06-11 17:59] LABS: Free T3, Triiodothyronine Free 3.21 pg/mL (2.77-5.27); Free T4, Direct Thyroxine 1.06 ng/dL (0.78-2.19)
[2022-06-11 19:01] LABS: Iron 149 ug/dL (37-170)
[2022-06-11 19:11] LABS: Percent Iron Saturation 36 % (15-50); Total Iron Binding Capacity 413 ug/dL (265-497); Transferrin 305 mg/dL (206-381)
== END ==
PROVIDERS: PCP Nurse Practitioner; Referring Provider Nurse Practitioner; Visit Provider Nurse Practitioner
DX: R31.29 Other microscopic hematuria (principal); R10.2 Pelvic and perineal pain; R30.0 Dysuria; R53.83 Other fatigue
CPT/HCPCS: 36415; 80053; 81001; 81002; 82607; 83540; 83550; 84439; 84443; 84481; 85025; 85651; 86140

== ENCOUNTER → 2022-08-25 14:32 | Outpatient (CLI) | payer BC, SELFPAY ==
--- NOTE | 2022-08-25 14:33 | DI.US.S_ITS ---
PROCEDURE: US PELVIC COMPLETE INDICATIONS: PAIN TECHNIQUE: Real-time scanning was performed of the pelvic organs, with image documentation. Additional endovaginal scanning was necessary due to incomplete visualization of the adnexal and endometrial structures by transabdominal scanning. COMPARISON: [facility], US, US PELVIC COMPLETE, 05/21/2022, 9:17. FINDINGS: Uterus: Uterus is retroverted and normal in size at 7.4 x 4.5 x 5.1 cm. The myometrium is homogeneous. The endometrium measures 3 mm combined thickness. Ovaries: The right ovary measures 1.9 x 2.5 x 0.9 cm, with a calculated ovarian volume of 2.1 cc. The left ovary measures 1.1 x 2.4 x 1.2 cm, with a calculated ovarian volume of 0.6 cc. The ovaries have a normal sonographic appearance. Less than 12 follicles can be seen in each ovary. No adnexal masses are seen. Other: No pathologic free abdominal or pelvic fluid. Prominent bilateral adnexal vessels are seen. The largest on the right measures 7 mm and the largest on the left measures 6 mm. IMPRESSION: Prominent bilateral adnexal vessels are seen. Please consider pelvic congestion syndrome. We strive to produce accurate, complete, and clear reports of imaging services. To assist us in improving patient care, this report was composed using standard report templates and voice recognition software. Therefore, it may contain abnormal punctuation, insertions and/or omissions. Occasional wrong-word or sound-alike substitutions may occur. Though we review the report and make efforts to correct it, we do recommend that the report be read carefully in proper context to recognize any text inaccuracies. Dictated by: Bashir Razo M.D. on 08/25/2022 at 14:48 Approved by: Bashir Razo M.D. on 08/25/2022 at 14:49
== END ==
PROVIDERS: PCP Nurse Practitioner; Referring Provider Obstetrics & Gynecology; Visit Provider Obstetrics & Gynecology
DX: R10.2 Pelvic and perineal pain (principal); N94.89 Other specified conditions associated with female genital organs and menstrual cycle
CPT/HCPCS: 76830; 76856; 93975

== ENCOUNTER → 2022-12-11 10:30 | Outpatient (CLI) | payer BC, SELFPAY ==
--- NOTE | 2022-12-11 | DI.CT.S_ITS ---
PROCEDURE: CT ANGIO ABDOMEN PELVIS INDICATIONS: PELVIC CONGESTION SYNDROME TECHNIQUE: After the administration of intravenous contrast, 2.5 mm thick sections acquired from the diaphragm to the symphysis. 10 mm maximum-intensity projection (MIP) reformats were then acquired. For radiation dose reduction, the following was used: automated exposure control. COMPARISON: [facility], , PELVIC COMPLETE, 08/25/2022, 14:57. FINDINGS: Image quality: Excellent. Lung bases: Lung bases are clear. Heart size is normal. Solid organs: Liver: The liver has no mass or intrahepatic biliary ductal dilatation. The portal vein and hepatic veins are patent. Biliary: The gallbladder has no gallstones, pericholecystic fluid, gallbladder wall thickening, or surrounding inflammatory change. Pancreas: The pancreas has no mass or ductal dilatation. There is no surrounding inflammation. Spleen: Normal size. There are no masses. Adrenals: No hypertrophy or nodules. Kidneys: No obstructive calculus or hydronephrosis. No solid mass. No cystic mass. Peritoneum and bowel: The distal esophagus and stomach are normal. The small bowel has a normal caliber and appearance. The terminal ileum is normal. The large bowel has a normal caliber and appearance. The appendix is not definitively visualized and therefore acute appendicitis cannot be excluded; however there are no secondary findings to suggest acute appendicitis. No free fluid or air. Nodes and vessels: No retroperitoneal or mesenteric adenopathy by size criteria. Aorta and inferior vena cava are normal in size. Miscellaneous: No abdominal wall mass or hernia. PELVIS: Genitourinary: The bladder is decompressed and not well evaluated on this study. Additionally there is early contrast within the bladder which limits evaluation. No bladder calcifications. Prominent vasculature around the uterus is seen. The right ovarian vein is 9 mm. The left ovarian vein is 8 mm. Bones: No suspicious bony lesions. No vertebral body compression fractures. There is leftward curvature of the lumbar spine. IMPRESSION: 1. Prominent vasculature around the uterus consistent with pelvic venous congestion. 2. Ovarian veins measure 9 mm on the right and 8 mm on the left. Greater than 5-6 mm correlates with pelvic venous congestion syndrome. Dictated by: Eddy Lake M.D. on 12/11/2022 at 11:21 Approved by: Eddy Lake M.D. on 12/11/2022 at 11:39
== END ==
PROVIDERS: PCP Nurse Practitioner; Referring Provider Nurse Practitioner Adult Health; Visit Provider Nurse Practitioner Adult Health
DX: N94.89 Other specified conditions associated with female genital organs and menstrual cycle (principal)
CPT/HCPCS: 74174; Q9967

== ENCOUNTER → 2023-01-12 13:25 | Outpatient (CLI) | payer BC, SELFPAY ==
--- NOTE | 2023-01-12 | DI.US.S_ITS ---
ULTRASOUND OF RIGHT BREAST: 01/12/2023 CLINICAL: Focal right medial breast pain. Comparison is made to exams dated: 03/23/2019 ultrasound, 01/12/2023 mammogram, and 03/23/2019 mammogram - [facility]. Ultrasound of the right breast was performed on the area of interest. Pathak scale images of the real-time examination were reviewed. IMPRESSION: NEGATIVE There is no sonographic evidence of malignancy. There is no mammographic or sonographic abnormality seen in the right breast to correspond with the pain, however, clinical followup is recommended. This exam was interpreted at Station ID: Unknown. Electronically Signed By: Evelyn bee/andrea:01/12/2023 15:20:31 Entry: - 01/13/2023 15:16:05 letter sent: Clinical Evaluation Ultrasound BI-RADS: 1 Negative
--- NOTE | 2023-01-12 13:26 | DI.MG.S_ITS ---
BILATERAL DIGITAL DIAGNOSTIC MAMMOGRAM 3D/2D: 01/12/2023 CLINICAL: Breast pain. Comparison is made to exam dated: 03/23/2019 mammogram - [facility]. Both breasts are heterogeneously dense, which may obscure small masses (category c / 51-75% glandular tissue). No significant masses, calcifications, or other findings are seen in either breast. IMPRESSION: INCOMPLETE: NEEDS ADDITIONAL IMAGING EVALUATION There is no mammographic abnormality seen in either breast to correspond with the pain, however, ultrasound is recommended. Based on Tyrer-Cuzick model (a risk assessment model), the patient's lifetime risk is 22.1% and her 10 year risk is 1.6%. If a patient has an elevated risk, a more comprehensive evaluation should be considered and/or a referral to a genetic counselor. The [place] [employer], [place] [employer], and NCCN Guidelines advise the consideration of Breast MRI as an adjunct to screening mammography in patients whose Lifetime risk to develop breast cancer is 20% or higher. This exam was interpreted at Station ID: [id number]. NOTE: For mammograms, a report in lay terms will be sent to the patient. Approximately 15% of breast malignancies will not be visualized mammographically. In the management of a palpable breast mass, a negative mammogram must not discourage biopsy of a clinically suspicious lesion. Electronically Signed By: Evelyn Gonzales M.D. lk/:01/12/2023 14:15:30 ACR BI-RADS Category 0: Incomplete 3340F
--- NOTE | 2023-01-12 13:26 | DI.US.S_ITS ---
LIMITED ULTRASOUND OF LEFT BREAST AND AXILLA: 01/12/2023 CLINICAL: Diffuse left breast pain and axilla pain. Comparison is made to exams dated: 01/12/2023 mammogram and 03/23/2019 mammogram - [facility]. Color flow ultrasound of the left breast axilla was performed on the areas of interest. Pathak scale images of the real-time examination were reviewed. IMPRESSION: NEGATIVE There is no sonographic evidence of malignancy. There is no mammographic or sonographic abnormality seen in the left breast to correspond with the pain, however, clinical followup is recommended. A 1 year screening mammogram is recommended. This exam was interpreted at Station ID: [id number]. Electronically Signed By: Evelyn bee/:01/12/2023 15:21:42 Entry: - 01/13/2023 15:16:28 letter sent: Clinical Evaluation Ultrasound BI-RADS: 1 Negative
== END ==
PROVIDERS: PCP Nurse Practitioner; Referring Provider Nurse Practitioner; Visit Provider Nurse Practitioner
DX: N64.4 Mastodynia (principal); R92.2 Inconclusive mammogram
CPT/HCPCS: 76642; 77066; G0279

== ENCOUNTER → 2023-06-12 09:34 | Outpatient (CLI) | payer BC, SELFPAY ==
[2023-06-12 10:27] LABS: Hematocrit 40.5 % (36-46); Hemoglobin 13.9 g/dL (12.0-16.0); Mean Corpuscular HGB Conc 34.4 % (30-36); Mean Corpuscular Hemoglobin 30.8 PG (26-34); Mean Corpuscular Volume 89.6 fL (80-100); Platelet Count 264 X10^3/uL (150-400); Red Blood Cell Count 4.52 X10^6/uL (4.0-5.2); Red Cell Distribution Width 12.7 % (11.6-14.8); White Blood Cell Count 7.1 X10^3/uL (4.5-11.0)
[2023-06-12 10:50] LABS: Creatinine Urine Random 83.5 mg/dL
[2023-06-12 10:53] LABS: Alanine Aminotransferase 15 IU/L (<35); Albumin 4.6 g/dL (3.5-5.0); Albumin Globulin Ratio 1.5 (1.0-2.8); Alkaline Phosphatase 83 U/L (38-126); Aspartate Aminotransferase 21 IU/L (14-36); BUN Creatinine Ratio 17.5 (6-22); Bilirubin Total 0.3 mg/dL (0.2-1.3); Blood Urea Nitrogen 11 mg/dL (7-17); Calcium 9.2 mg/dL (8.4-10.2); Carbon Dioxide 26 mmol/L (22-32); Chloride 102 mmol/L (98-107); Cholesterol 162 mg/dL (140-199); Estimated Glomerular Filt Rate > 60 mL/min (>60); Globulin 3.1 g/dL (1.7-4.1); Glucose 94 mg/dL (70-100); HDL Cholesterol 67 mg/dL (40-60); HEMOLYSIS < 15 (0-50); LDL Cholesterol Calculated 82 mg/dL (<100); Potassium 4.3 mmol/L (3.4-5.1); Sodium 137 mmol/L (137-145); Total Protein 7.7 g/dL (6.3-8.2); Triglycerides 64 mg/dL (35-150)
[2023-06-12 10:56] LABS: Microalbumin Urine Random < 0.6 mg/dL (0-1.6)
[2023-06-12 10:56] LABS: Free T3, Triiodothyronine Free 3.59 pg/mL (2.77-5.27); Free T4, Direct Thyroxine 1.06 ng/dL (0.78-2.19)
[2023-06-12 11:09] LABS: Thyroid Stimulating Hormone 1.11 uIU/mL (0.47-4.68)
== END ==
PROVIDERS: Family Provider Nurse Practitioner; PCP Nurse Practitioner; Referring Provider Nurse Practitioner; Visit Provider Nurse Practitioner
DX: Z00.00 Encounter for general adult medical examination without abnormal findings (principal)
CPT/HCPCS: 36415; 80053; 80061; 82043; 82570; 84439; 84443; 84481; 85027

== ENCOUNTER 2023-08-14 08:00 | Outpatient (RCR) | payer BC, SELFPAY ==
--- NOTE | 2023-02-28 14:10 | PT.OIE ---
Current Diagnoses Other chronic pain (02/27/23) Other specified conditions associated with female genital organs and menstrual cycle (02/27/23) Pelvic and perineal pain (02/27/23) Past Medical History Abdominal pain Anovulation Blepharospasm of left eye Bloating Change in bowel habits Depression with anxiety Diarrhea Dysmenorrhea Dyspareunia in female Fatigue Follicular cyst of left ovary Food sensitivity headache Food sensitivity with gastrointestinal symptoms Hemorrhagic cyst of right ovary History of miscarriage Microscopic hematuria Migraine with aura Normal colonoscopy Peanut allergy Pelvic congestion syndrome Secondhand smoke exposure Past Surgical History (Last Reviewed 02/04/23 @ 08:40 by ISIDRO Resendiz) Anesthesia H/O cystoscopy History of thumb surgery (~1993) [place] teeth removed (~2010) Visit Care Team Role Provider Type ISIDRO Resendiz Attending Provider Advanced Jack Frame Tender Family Provider Primary Care Provider Referring Provider Specialty: Family Practice Address: [address] [place] [address], [facility] Email: [email or web address] Therapy Initial Evaluation PT-OP-A Visit Information Start: 02/27/23 07:56 Freq: Status: Active Protocol: Document 02/27/23 08:00 LRN (Rec: 02/27/23 08:55 LRN [id number]) Out-Patient Physical Therapy Visit Information Visit Information Visit Type Initial Evaluation Visit Start Time 08:00 Visit Stop Time 08:54 Total Visit Minutes 54 Visit Number 1 Evaluation Information Evaluation Date 02/27/23 Precautions Precautions D&E after miscarriage 04/2022, Depression, MADISON's. PT-OP-B Current Condition Start: 02/27/23 07:56 Freq: Status: Active Protocol: Document 02/27/23 08:00 LRN (Rec: 02/27/23 08:55 LRN [id number]) Current Condition History of Current Condition Onset Date 04/2022 Current Complaints Pelvic pain History of Current Condition Pelvic pain onset after miscarriage of 17 wk old fetus . Pt underwent D&E in April 2022 (pt reported fetus was 11 days prior to miscarriage). She reports heavy bleeding after D&E for a month, then noticed a lot of lower trunk pain. She states 2 blood vessels were found to be dilated more than normal, then 2 months later found vessels still enlarged. Prior to had pelvic pain but they it was thought to be due to endometriosis, but had no proof. She has now been diagnosed with pelvic congestion by [facility] and was referred to to get ovarian veins embolized . Pt has chosen to not do surgery because she doesn't feel she has enough pain to merit surgery. She would rather try physical therapy first to see if it she can avoid surgery. Per intake form and pt report of PMH: Varicose veins, pelvic congestion. MADISON's thought due to allergies, 1-2 every 2 weeks. Future Testing and Treatments Planned Samantha Jacques next visit May ~ or . Developmental History Developmental History Pt reports has also been diagnosed with IBS and has had PF pain history. States after first had start of pelvic pain. First born in 2015 w/o complications and no onset of incontinence. She reports bad UTI in 2020, resulting in onset of pressure and discomfort. States she has been found to have blood in urine by Dr. Ricketts, but urethra scope found everything to be okay. She is still having microbleeding that is thought to be due to microbleeding from pelvic congestion. Pt used to exercise a lot, but since miscarriage hasn't. Found pain problem due to exercise, after exercise would experience a lot of pain. Wants to run again. Used to run 3K's after 1st . After stopped, but now jogs/walks on TM, does ALYSSA exer, Pilates and yoga at home workouts. Treatment Goals Patient/Caregiver Goals Pt goal with therapy is to relieve pelvic pain to avoid surgery. 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 PT-OP-C Subjective Start: 02/27/23 07:56 Freq: Status: Active Protocol: Document 02/27/23 08:00 LRN (Rec: 02/27/23 08:55 LRN [id number]) Patient Questionnaires Pelvic Pain and Urgency/Frequency Patient Symptom Scale Pelvic Pain Score 11 PT-OP-I Pelvic Floor Start: 02/27/23 07:56 Freq: Status: Active Protocol: Document 02/27/23 08:00 LRN (Rec: 02/27/23 08:55 LRN [id number]) Pelvic Floor Assessment Urine Pelvic Floor Surgery No Urinary Symptoms Pain Leakage Size Small Leakage Cause Cough,Sneeze Pads Used In 24 Hours 1-2 Urine Pad Type Panty Liner Bowel Bowel Symptoms Constipation Other Bowel Symptoms Diarrhea Bowel Movement Frequency Usually daily, sometimes every other day. [place] Stool Chart Comments Cycles between Constipation & Diarrhea Prolapse Prolapse Comments Bulge in area of rectum (6 of PF clock), that was spongy, and no tenderness. Not consistent with feeling of rectocele. Contraction Ability Manual Muscle Testing Left 1 Manual Muscle Testing Right 1 Manual Muscle Testing Anterior 1 Manual Muscle Testing Posterior 3 Muscle Endurance (Seconds) 10 Number of Quick Contractions In 10 3 Seconds Comments Pelvic Floor Comments Pt PF contractions are sluggish. Pt reports PF pain with menstration and occasionally with exercise. Pt lately finds exercise helps decrease pain. Pt PF pain is worse if not regular with bowel movements. PT-OP-J Posture/Palpation/Skin Start: 02/27/23 07:56 Freq: Status: Active Protocol: Document 02/27/23 08:00 LRN (Rec: 02/27/23 08:55 LRN [id number]) Posture Evaluation Position Standing Head/C-Spine Posture Neutral Position T-Spine Posture Flattened L-Spine Posture Increased Lordosis Scapula Posture (L) Neutral Arm Posture (L) Neutral,(R) Neutral Pelvis Posture Anteriorly Tilted,(R) Rotated Posterior,(R) PSIS Posterior Knee Posture (L) Genu Valgus,(R) Genu Valgus Comments Posture Comments Chest is forward over her hips , R innominate: Posterly rotated and appears posterior displaced with director of food and beverage services-anterior assessment. Palpation Assessment Location Abdomen Palpation Location Diastasis Rectus Palpation Details Umbilicus 4 above: Xiphoid Process: Closed Umbilicus 3 above: 2 finger widths Umbilicus 2 above: 2 finger widths Umbilicus 1 above: 2 finger widths Umbilicus Umbilicus: 1 below: 1 finger widths Umbilicus: 2 below: 1 finger widths Umbilicus: 3 below: 1 finger widths Umbilicus: 4 below: Pubic Symphysis closed PT-OP-K Range of Motion Start: 02/27/23 07:56 Freq: Status: Active Protocol: Document 02/27/23 08:00 LRN (Rec: 02/27/23 08:55 LRN [id number]) Lumbar Spine Range of Motion Lumbar Spine Active Degrees Testing Position Standing Flexion 115 Extension 32 Rotation Left 45 Rotation Right 40 Lateral Flexion Left 23 Lateral Flexion Right 12 Comments Trunk AROM: Flexion is 115 deg?s with 70 deg?s hip flexion, Trunk extension is 32 deg?s with 5 deg?s hip extension. 115/70 32/5 Hip Goniometric Range of Motion Hip Right Passive Testing Position Supine Internal Rotation 55 External Rotation 50 Left Passive Testing Position Supine Internal Rotation 60 External Rotation 40 Comments Visible decreased active hip IR in sitting. PT-OP-M Strength Start: 02/27/23 07:56 Freq: Status: Active Protocol: Document 02/27/23 08:00 LRN (Rec: 02/27/23 08:55 LRN [id number]) Trunk Strength Trunk Manual Muscle Testing Core Stabilization Decreased core stability with lift of R LE hip flex., L hip AD Hip Strength Hip Manual Muscle Testing Right Flexion (L2) 5 Normal Extension (S1) 5 Normal Abduction 5 Normal Adduction 5 Normal External Rotation 5 Normal Internal Rotation 5 Normal Left Flexion (L2) 5 Normal Extension (S1) 5 Normal Abduction 5 Normal Adduction 3 Fair External Rotation 5 Normal Internal Rotation 5 Normal PT-OP-Q Treatments Start: 02/27/23 07:56 Freq: Status: Active Protocol: Document 02/27/23 08:00 LRN (Rec: 02/27/23 08:55 LRN [id number]) Self-Care/Home Management Treatment Education Other Education Discussed results of evaluation, goals, and plan of care (POC). Pt agreeable to goals and POC. Pt educated in use of Bladder Diary and I/S in tracking for 1 week. Discussed use of 2 different diaries for tracking of bladder. Activities Self-Care/Home Management Activities Issued HEP: Michel ex's Quick Flicks and Long Holds. PT-OP-T Assessment and Plan Start: 02/27/23 07:56 Freq: Status: Active Protocol: Document 02/27/23 08:00 LRN (Rec: 02/27/23 08:55 LRN [id number]) Physical Therapy Assessment Rehab Potential Rehabilitation Potential Good Evaluation Complexity Number of Personal Factors/Comorbidities 1-2 Number of Body Systems Impaired 4 or More Clinical Presentation at Evaluation Evolving Impairments Impairments Activity Tolerance,Edema,Pain, Posture,ROM,Soft Tissue Mobility,Strength,Transfers Goals Four Impairment Diastasis Rectus causing core instability Impairment Initial Assessment: Umbilicus 4 above: Xiphoid Process: Closed Umbilicus 3 above: 2 finger widths Umbilicus 2 above: 2 finger widths Umbilicus 1 above: 2 finger widths Umbilicus Umbilicus: 1 below: 1 finger widths Umbilicus: 2 below: 1 finger widths Umbilicus: 3 below: 1 finger widths Umbilicus: 4 below: Pubic Symphysis closed Short Term Goal (STG) Pt will be educated in best practice to minimize DR with transfers using sheet/towel method. STG Duration 03/20/23 Mcfp Goal (LTG) Decrease DR, greater expected decrease to occur in > 6 months due to post hormonal changes. LTG Duration 08/27/23 Three Impairment Decreased function Impairment Lower abdominal/pelvic floor/ LBP with lifting her child Limited with exercise due to onset of lower abdominal/LB/ Pelvic pain. Short Term Goal (STG) Pt will be educated in proper sitting/standing posture and educated in proper body mechanics for ADLs and exercise. STG Duration 03/27/23 On Site Services Specialist Goal (LTG) Pt educated in proper transfers and functional mobility to lessen core abdominal pressure with pt able to return to modified exercise and functional activities with minimal onset of lower abdominal/PF/LBP. LTG Duration 06/28/23 Two Impairment Lower abdominal, PF, and LBP rated 1-2/10. Short Term Goal (STG) Pt will be educated in self care pain/inflammation management with cold pack and RICE technique. STG Duration 03/13/23 On Site Services Specialist Goal (LTG) Pt will be educated in proper hydration norms, BM massage and proper bowel care with lessening of onset of lower abdominal/PF/LBP to minimal or pt tolerable level. LTG Duration 05/10/23 One Impairment Pt lacks self care HEP. Short Term Goal (STG) Pt will be independent in appropriate self care & hip stretches. STG Duration 05/29/23 On Site Services Specialist Goal (LTG) Pt will be independent in appropriate PF (to decrease urinary leakage) & core strengthening ex's to improve posture of rib cage over hips. LTG Duration 05/29/23 Assessment Summary Assessment Pt is a 32 yo female who is 10 months s/p miscarriage and D& E surgery of her 17 wk fetus. Pt has had pelvic pain since surgery and has been diagnosed with PF congestion. The pt presents with swelling of her posterior PF tissues, 5-7 of the PF clock, w/o palpable pain. Her subjective report indicate her pain is exacerbated by activities causing increased core pressures. She has weakness of her PF muscles except posteriorly a strong lift is felt, and she appears to have good endurance, but her quick contractions are slow and sluggish. She has postural dysfunctions, and poor coordination of breathwork with functional movements and probably with exercise. Trunk mobility is good except restriction is present with R SB. She has hyper mobility of hip IR and mild decrease with ER, but weakness in L hip IR is visible with AROM in sitting. Hip strength appears normal except with L hip AD. The pt will benefit from skilled physical therapy for training and education, strengthening & ROM ex's of LE 's and trunk, biofeedback to the PF, neuro re-education and postural training and progression towards HEP to continue post therapy, and progression to achieve the above stated goals. Physical Therapy Plan Frequency and Duration Frequency of Treatment 1x/Week Plan of Care Start Date 02/27/23 Plan of Care End Date 08/27/23 Therapeutic Interventions Therapeutic Interventions Home Exercise Program,Joint Mobilizations,Manual Therapy, Neuromuscular Re-education, Patient/Caregiver Education, Self-Care/Home Management,Soft Tissue Mobilization,Taping, Therapeutic Activities, Therapeutic Exercises Modalities Cold Pack/Ice Massage,Hot Packs Other Referrals/Consults Referrals/Consults Recommended Assessment for topical estrogen to improve perineal tissue health. Next Visit Focus/Plan Next Note Type Treatment Note Next Visit Plan Review bladder diary and discuss/make recommendations appropriate (discuss foods, and water intake), Assess Sacral positioning. Education: in proper Kegel without use of substitute muscles; self care pain/ inflammation management with cold pack and RICE technique; proper hydration norms, BM massage and proper bowel care; proper sitting/standing posture; proper body mechanics for ADLs and exercise; proper transfers and functional mobility to lessen core abdominal pressure (discuss & educate pt in proper squatting and lifting, sit to stand, and moving in bed using breathwork and core/ PF stabilization for proper abdominal pressure system); proper deep breathing; and if needed proper vulvar/ genital care. Biofeedback assessment/ training with vaginal/rectal/ surface sensor(s). PF and L hip IR/AD strengthening, improve hip ER and trunk R SB mobility, Check abdominal soft tissue ( bladder) mobility, DR protection/TA strengthening , K-taping for
--- NOTE | 2023-02-28 14:21 | PT.OPPOC ---
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 Family Provider Primary Care Provider Referring Provider Specialty: Family Practice Address: [address] [place] [address], [facility] Email: [email or web address] Plan Of Care PT-OP-T Assessment and Plan Start: 02/27/23 07:56 Freq: Status: Active Protocol: Document 02/27/23 08:00 LRN (Rec: 02/27/23 08:55 LRN [id number]) Physical Therapy Assessment Rehab Potential Rehabilitation Potential Good Evaluation Complexity Number of Personal Factors/Comorbidities 1-2 Number of Body Systems Impaired 4 or More Clinical Presentation at Evaluation Evolving Impairments Impairments Activity Tolerance,Edema,Pain, Posture,ROM,Soft Tissue Mobility,Strength,Transfers Goals Four Impairment Diastasis Rectus causing core instability Impairment Initial Assessment: Umbilicus 4 above: Xiphoid Process: Closed Umbilicus 3 above: 2 finger widths Umbilicus 2 above: 2 finger widths Umbilicus 1 above: 2 finger widths Umbilicus Umbilicus: 1 below: 1 finger widths Umbilicus: 2 below: 1 finger widths Umbilicus: 3 below: 1 finger widths Umbilicus: 4 below: Pubic Symphysis closed Short Term Goal (STG) Pt will be educated in best practice to minimize DR with transfers using sheet/towel method. STG Duration 03/20/23 Rn Bariatric Goal (LTG) Decrease DR, greater expected decrease to occur in > 6 months due to post hormonal changes. LTG Duration 08/27/23 Three Impairment Decreased function Impairment Lower abdominal/pelvic floor/ LBP with lifting her child Limited with exercise due to onset of lower abdominal/LB/ Pelvic pain. Short Term Goal (STG) Pt will be educated in proper sitting/standing posture and educated in proper body mechanics for ADLs and exercise. STG Duration 03/27/23 Group Home Goal (LTG) Pt educated in proper transfers and functional mobility to lessen core abdominal pressure with pt able to return to modified exercise and functional activities with minimal onset of lower abdominal/PF/LBP. LTG Duration 06/28/23 Two Impairment Lower abdominal, PF, and LBP rated 1-2/10. Short Term Goal (STG) Pt will be educated in self care pain/inflammation management with cold pack and RICE technique. STG Duration 03/13/23 Rn Bariatric Goal (LTG) Pt will be educated in proper hydration norms, BM massage and proper bowel care with lessening of onset of lower abdominal/PF/LBP to minimal or pt tolerable level. LTG Duration 05/10/23 One Impairment Pt lacks self care HEP. Short Term Goal (STG) Pt will be independent in appropriate self care & hip stretches. STG Duration 05/29/23 Rn Bariatric Goal (LTG) Pt will be independent in appropriate PF (to decrease urinary leakage) & core strengthening ex's to improve posture of rib cage over hips. LTG Duration 05/29/23 Assessment Summary Assessment Pt is a 32 yo female who is 10 months s/p miscarriage and D& E surgery of her 17 wk fetus. Pt has had pelvic pain since surgery and has been diagnosed with PF congestion. The pt presents with swelling of her posterior PF tissues, 5-7 of the PF clock, w/o palpable pain. Her subjective report indicate her pain is exacerbated by activities causing increased core pressures. She has weakness of her PF muscles except posteriorly a strong lift is felt, and she appears to have good endurance, but her quick contractions are slow and sluggish. She has postural dysfunctions, and poor coordination of breathwork with functional movements and probably with exercise. Trunk mobility is good except restriction is present with R SB. She has hyper mobility of hip IR and mild decrease with ER, but weakness in L hip IR is visible with AROM in sitting. Hip strength appears normal except with L hip AD. The pt will benefit from skilled physical therapy for training and education, strengthening & ROM ex's of LE 's and trunk, biofeedback to the PF, neuro re-education and postural training and progression towards HEP to continue post therapy, and progression to achieve the above stated goals. Physical Therapy Plan Frequency and Duration Frequency of Treatment 1x/Week Plan of Care Start Date 02/27/23 Plan of Care End Date 08/27/23 Therapeutic Interventions Therapeutic Interventions Home Exercise Program,Joint Mobilizations,Manual Therapy, Neuromuscular Re-education, Patient/Caregiver Education, Self-Care/Home Management,Soft Tissue Mobilization,Taping, Therapeutic Activities, Therapeutic Exercises Modalities Cold Pack/Ice Massage,Hot Packs Other Referrals/Consults Referrals/Consults Recommended Assessment for topical estrogen to improve perineal tissue health. Next Visit Focus/Plan Next Note Type Treatment Note Next Visit Plan Review bladder diary and discuss/make recommendations appropriate (discuss foods, and water intake), Assess Sacral positioning. Education: in proper Kegel without use of substitute muscles; self care pain/ inflammation management with cold pack and RICE technique; proper hydration norms, BM massage and proper bowel care; proper sitting/standing posture; proper body mechanics for ADLs and exercise; proper transfers and functional mobility to lessen core abdominal pressure (discuss & educate pt in proper squatting and lifting, sit to stand, and moving in bed using breathwork and core/ PF stabilization for proper abdominal pressure system); proper deep breathing; and if needed proper vulvar/ genital care. Biofeedback assessment/ training with vaginal/rectal/ surface sensor(s). PF and L hip IR/AD strengthening, improve hip ER and trunk R SB mobility, Check abdominal soft tissue ( bladder) mobility, DR protection/TA strengthening , K-taping for DR Plan of Care Dates Plan of Care Start Date 02/27/23 Plan of Care End Date 08/27/23 Electronically Signed by: Evelyn Dunn, PT 02/28/23 0251 If you are in agreement with this Plan of Care, please return a signed and dated copy. I have reviewed this Plan of Care and certify that the skilled therapy services above are required to meet the patient?s needs. Physician Signature Date Printed Name and Credentials Clinical Instructor Signature Printed Name and Credentials
--- NOTE | 2023-04-07 17:35 | PT.OTN ---
Current Diagnoses Other chronic pain (04/07/23) Constipation, unspecified (04/07/23) Low back pain, unspecified (04/07/23) Separation of muscle (nontraumatic), unspecified site (04/07/23) Stress incontinence (female) (male) (04/07/23) Other specified conditions associated with female genital organs and menstrual cycle (04/07/23) Pelvic and perineal pain (04/07/23) Physical Therapy Treatment Note PT-OP-A Visit Information Start: 02/27/23 07:56 Freq: Status: Active Protocol: Document 04/07/23 12:25 LRN (Rec: 04/07/23 13:21 LRN [id number]) Out-Patient Physical Therapy Visit Information Visit Information Visit Type Treatment Note Visit Start Time 12:35 Visit Stop Time 13:18 Total Visit Minutes 43 Visit Number 2 Evaluation Information Evaluation Date 02/27/23 Precautions Precautions D&E after miscarriage 04/2022, Depression, MADISON's. PT-OP-B Current Condition Start: 02/27/23 07:56 Freq: Status: Active Protocol: Document 02/27/23 08:00 LRN (Rec: 02/27/23 08:55 LRN [id number]) Current Condition History of Current Condition Onset Date 04/2022 Current Complaints Pelvic pain History of Current Condition Pelvic pain onset after miscarriage of 17 wk old fetus . Pt underwent D&E in April 2022 (pt reported fetus was 11 days prior to miscarriage). She reports heavy bleeding after D&E for a month, then noticed a lot of lower trunk pain. She states 2 blood vessels were found to be dilated more than normal, then 2 months later found vessels still enlarged. Prior to had pelvic pain but they it was thought to be due to endometriosis, but had no proof. She has now been diagnosed with pelvic congestion by [facility] and was referred to to get ovarian veins embolized . Pt has chosen to not do surgery because she doesn't feel she has enough pain to merit surgery. She would rather try physical therapy first to see if it she can avoid surgery. Per intake form and pt report of PMH: Varicose veins, pelvic congestion. MADISON's thought due to allergies, 1-2 every 2 weeks. Future Testing and Treatments Planned Samantha Jacques next visit May ~ or . Developmental History Developmental History Pt reports has also been diagnosed with IBS and has had PF pain history. States after first had start of pelvic pain. First born in 2015 w/o complications and no onset of incontinence. She reports bad UTI in 2020, resulting in onset of pressure and discomfort. States she has been found to have blood in urine by Dr. Ricketts, but urethra scope found everything to be okay. She is still having microbleeding that is thought to be due to microbleeding from pelvic congestion. Pt used to exercise a lot, but since miscarriage hasn't. Found pain problem due to exercise, after exercise would experience a lot of pain. Wants to run again. Used to run 3K's after 1st . After stopped, but now jogs/walks on TM, does ALYSSA exer, Pilates and yoga at home workouts. Treatment Goals Patient/Caregiver Goals Pt goal with therapy is to relieve pelvic pain to avoid surgery. 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 PT-OP-C Subjective Start: 02/27/23 07:56 Freq: Status: Active Protocol: Document 04/07/23 12:25 LRN (Rec: 04/07/23 13:21 LRN [id number]) OP-PT Subjective Patient Comments Patient Comments Last month has been good as the pain hasn't been too bad. Pain seems to alternate in her menstral cycles. Anticipating this month to be more painful. Next cycle expected in 5 days and pain expected a few days before the cycle. Has started to feel it in the R side of abdomen with ovulation. PT-OP-I Pelvic Floor Start: 02/27/23 07:56 Freq: Status: Active Protocol: Document 02/27/23 08:00 LRN (Rec: 02/27/23 08:55 LRN [id number]) Pelvic Floor Assessment Urine Pelvic Floor Surgery No Urinary Symptoms Pain Leakage Size Small Leakage Cause Cough,Sneeze Pads Used In 24 Hours 1-2 Urine Pad Type Panty Liner Bowel Bowel Symptoms Constipation Other Bowel Symptoms Diarrhea Bowel Movement Frequency Usually daily, sometimes every other day. [place] Stool Chart Comments Cycles between Constipation & Diarrhea Prolapse Prolapse Comments Bulge in area of rectum (6 of PF clock), that was spongy, and no tenderness. Not consistent with feeling of rectocele. Contraction Ability Manual Muscle Testing Left 1 Manual Muscle Testing Right 1 Manual Muscle Testing Anterior 1 Manual Muscle Testing Posterior 3 Muscle Endurance (Seconds) 10 Number of Quick Contractions In 10 3 Seconds Comments Pelvic Floor Comments Pt PF contractions are sluggish. Pt reports PF pain with menstration and occasionally with exercise. Pt lately finds exercise helps decrease pain. Pt PF pain is worse if not regular with bowel movements. PT-OP-J Posture/Palpation/Skin Start: 02/27/23 07:56 Freq: Status: Active Protocol: Document 02/27/23 08:00 LRN (Rec: 02/27/23 08:55 LRN [id number]) Posture Evaluation Position Standing Head/C-Spine Posture Neutral Position T-Spine Posture Flattened L-Spine Posture Increased Lordosis Scapula Posture (L) Neutral Arm Posture (L) Neutral,(R) Neutral Pelvis Posture Anteriorly Tilted,(R) Rotated Posterior,(R) PSIS Posterior Knee Posture (L) Genu Valgus,(R) Genu Valgus Comments Posture Comments Chest is forward over her hips , R innominate: Posterly rotated and appears posterior displaced with community manager-anterior assessment. Palpation Assessment Location Abdomen Palpation Location Diastasis Rectus Palpation Details Umbilicus 4 above: Xiphoid Process: Closed Umbilicus 3 above: 2 finger widths Umbilicus 2 above: 2 finger widths Umbilicus 1 above: 2 finger widths Umbilicus Umbilicus: 1 below: 1 finger widths Umbilicus: 2 below: 1 finger widths Umbilicus: 3 below: 1 finger widths Umbilicus: 4 below: Pubic Symphysis closed PT-OP-K Range of Motion Start: 02/27/23 07:56 Freq: Status: Active Protocol: Document 02/27/23 08:00 LRN (Rec: 02/27/23 08:55 LRN [id number]) Lumbar Spine Range of Motion Lumbar Spine Active Degrees Testing Position Standing Flexion 115 Extension 32 Rotation Left 45 Rotation Right 40 Lateral Flexion Left 23 Lateral Flexion Right 12 Comments Trunk AROM: Flexion is 115 deg?s with 70 deg?s hip flexion, Trunk extension is 32 deg?s with 5 deg?s hip extension. 115/70 32/5 Hip Goniometric Range of Motion Hip Right Passive Testing Position Supine Internal Rotation 55 External Rotation 50 Left Passive Testing Position Supine Internal Rotation 60 External Rotation 40 Comments Visible decreased active hip IR in sitting. PT-OP-M Strength Start: 02/27/23 07:56 Freq: Status: Active Protocol: Document 02/27/23 08:00 LRN (Rec: 02/27/23 08:55 LRN [id number]) Trunk Strength Trunk Manual Muscle Testing Core Stabilization Decreased core stability with lift of R LE hip flex., L hip AD Hip Strength Hip Manual Muscle Testing Right Flexion (L2) 5 Normal Extension (S1) 5 Normal Abduction 5 Normal Adduction 5 Normal External Rotation 5 Normal Internal Rotation 5 Normal Left Flexion (L2) 5 Normal Extension (S1) 5 Normal Abduction 5 Normal Adduction 3 Fair External Rotation 5 Normal Internal Rotation 5 Normal PT-OP-Q Treatments Start: 02/27/23 07:56 Freq: Status: Active Protocol: Document 04/07/23 12:25 LRN (Rec: 04/07/23 13:21 LRN [id number]) Therapeutic Exercises Supine Exercises TA tightening Supine Exercise Name TA tightening - cuing for breathing with contraction Reps/Minutes 10 SH x 10 Comments Extra time taken for training for proper contraction Vagus n. relaxation Supine Exercise Name Exhale with Ohhhh, Ahhhh, Ummm Equipment Used pt hand placement on neck for vibration. Reps/Minutes 5' Deep Breathing Supine Exercise Name Deep breathing training - abdomen and slowness of breath Equipment Used self hand placement on abdomen and chest. Reps/Minutes 10' Comments Cuing for lower ribs/abdomen expansion/contraction with breath Self-Care/Home Management Treatment Education Patient Education Pain Management Other Education 19' Review of bladder diary with education in norm for fluid level intake for hydration and discussion of bowel movements to be done daily. Discussed onset of PF pain with onset of menstration cycle and for pt to monitor pain level with hydration levels to prevent constipation . Discussed briefly genital hygiene for women and genital vulvar care, Diaphragmatic breathing, vagus nerve relaxation, and DR protection with review of using towel around trunk for protection. Activities Self-Care/Home Management Activities Issued and reviewed handouts for Diaphragmatic breathing, TA in 4-pt, DR protection with towel around core, and Genital hygiene for women and Genital vulvar care. PT-OP-T Assessment and Plan Start: 02/27/23 07:56 Freq: Status: Active Protocol: Document 04/07/23 12:25 LRN (Rec: 04/07/23 13:21 LRN [id number]) Physical Therapy Assessment Goals Four Impairment Diastasis Rectus causing core instability Impairment Initial Assessment: Umbilicus 4 above: Xiphoid Process: Closed Umbilicus 3 above: 2 finger widths Umbilicus 2 above: 2 finger widths Umbilicus 1 above: 2 finger widths Umbilicus Umbilicus: 1 below: 1 finger widths Umbilicus: 2 below: 1 finger widths Umbilicus: 3 below: 1 finger widths Umbilicus: 4 below: Pubic Symphysis closed Short Term Goal (STG) Pt will be educated in best practice to minimize DR with transfers using sheet/towel method. STG Duration 03/20/23 (04/07/23: MET GOAL) Captain'S Assistant Goal (LTG) Decrease DR, greater expected decrease to occur in > 6 months due to post hormonal changes. LTG Duration 08/27/23 Three Impairment Decreased function Impairment Lower abdominal/pelvic floor/ LBP with lifting her child Limited with exercise due to onset of lower abdominal/LB/ Pelvic pain. Short Term Goal (STG) Pt will be educated in proper sitting/standing posture and educated in proper body mechanics for ADLs and exercise. STG Duration 03/27/23 Senior Living Goal (LTG) Pt educated in proper transfers and functional mobility to lessen core abdominal pressure with pt able to return to modified exercise and functional activities with minimal onset of lower abdominal/PF/LBP. LTG Duration 06/28/23 Two Impairment Lower abdominal, PF, and LBP rated 1-2/10. Short Term Goal (STG) Pt will be educated in self care pain/inflammation management with cold pack and RICE technique. STG Duration 03/13/23 Captain'S Assistant Goal (LTG) Pt will be educated in proper hydration norms, BM massage and proper bowel care with lessening of onset of lower abdominal/PF/LBP to minimal or pt tolerable level. LTG Duration 05/10/23 One Impairment Pt lacks self care HEP. Short Term Goal (STG) Pt will be independent in appropriate self care & hip stretches. STG Duration 05/29/23 Senior Living Goal (LTG) Pt will be independent in appropriate PF (to decrease urinary leakage) & core strengthening ex's to improve posture of rib cage over hips. LTG Duration 05/29/23 Assessment Summary Assessment Pt showed good understanding of TA tightening and breathing method to decrease vagal n stim. Pt tends to breath too quickly with deep breathing, but learned to breath from 3 sec to 5 sec breaths. Pt is very receptive to education in methods to decrease PF pain during menstration with deep breathing, and increased fluid intake for daily BM's. Physical Therapy Plan Frequency and Duration Frequency of Treatment 1x/Week Plan of Care Start Date 02/27/23 Plan of Care End Date 08/27/23 Next Visit Focus/Plan Next Note Type Treatment Note Next Visit Plan Check for questions regarding previously issued handouts. Monitor for DR protection methods. Review deep breathing for slow breath and decrease in vagal n stim. Educate in self care pain/ inflammation management with cold pack and RICE technique. Educate in proper sitting/ standing posture; proper body mechanics for ADLs and exercise; proper transfers and functional mobility to lessen core abdominal pressure Assess Sacral positioning. Education: in proper Kegel without use of substitute muscles and assess PF with EMG biofeedback; discuss & educate pt in proper squatting and lifting, sit to stand, and moving in bed using breathwork and core/PF stabilization for proper abdominal pressure system; proper deep breathing. Biofeedback assessment/ training with vaginal/rectal/ surface sensor(s). PF and L hip IR/AD strengthening, improve hip ER and trunk R SB mobility, Check abdominal soft tissue ( bladder) mobility, DR protection/TA strengthening , K-taping for
--- NOTE | 2023-04-17 17:07 | PT.OTN ---
Current Diagnoses Other chronic pain (04/17/23) Constipation, unspecified (04/17/23) Low back pain, unspecified (04/17/23) Separation of muscle (nontraumatic), unspecified site (04/17/23) Stress incontinence (female) (male) (04/17/23) Other specified conditions associated with female genital organs and menstrual cycle (04/17/23) Pelvic and perineal pain (04/17/23) Physical Therapy Treatment Note PT-OP-A Visit Information Start: 02/27/23 07:56 Freq: Status: Active Protocol: Document 04/17/23 09:36 LRN (Rec: 04/17/23 10:29 LRN [id number]) Out-Patient Physical Therapy Visit Information Visit Information Visit Type Treatment Note Visit Start Time 09:36 Visit Stop Time 10:17 Total Visit Minutes 41 Visit Number 3 Evaluation Information Evaluation Date 02/27/23 Precautions Precautions D&E after miscarriage 04/2022, Depression, MADISON's. PT-OP-B Current Condition Start: 02/27/23 07:56 Freq: Status: Active Protocol: Document 02/27/23 08:00 LRN (Rec: 02/27/23 08:55 LRN [id number]) Current Condition History of Current Condition Onset Date 04/2022 Current Complaints Pelvic pain History of Current Condition Pelvic pain onset after miscarriage of 17 wk old fetus . Pt underwent D&E in April 2022 (pt reported fetus was 11 days prior to miscarriage). She reports heavy bleeding after D&E for a month, then noticed a lot of lower trunk pain. She states 2 blood vessels were found to be dilated more than normal, then 2 months later found vessels still enlarged. Prior to had pelvic pain but they it was thought to be due to endometriosis, but had no proof. She has now been diagnosed with pelvic congestion by [facility] and was referred to to get ovarian veins embolized . Pt has chosen to not do surgery because she doesn't feel she has enough pain to merit surgery. She would rather try physical therapy first to see if it she can avoid surgery. Per intake form and pt report of PMH: Varicose veins, pelvic congestion. MADISON's thought due to allergies, 1-2 every 2 weeks. Future Testing and Treatments Planned Samantha Jacques next visit May ~ or . Developmental History Developmental History Pt reports has also been diagnosed with IBS and has had PF pain history. States after first had start of pelvic pain. First born in 2015 w/o complications and no onset of incontinence. She reports bad UTI in 2020, resulting in onset of pressure and discomfort. States she has been found to have blood in urine by Dr. Ricketts, but urethra scope found everything to be okay. She is still having microbleeding that is thought to be due to microbleeding from pelvic congestion. Pt used to exercise a lot, but since miscarriage hasn't. Found pain problem due to exercise, after exercise would experience a lot of pain. Wants to run again. Used to run 3K's after 1st . After stopped, but now jogs/walks on TM, does ALYSSA exer, Pilates and yoga at home workouts. Treatment Goals Patient/Caregiver Goals Pt goal with therapy is to relieve pelvic pain to avoid surgery. 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 PT-OP-C Subjective Start: 02/27/23 07:56 Freq: Status: Active Protocol: Document 04/17/23 09:36 LRN (Rec: 04/17/23 10:29 LRN [id number]) OP-PT Subjective Patient Comments Patient Comments Food posening over Father's Day, so stomach is still uncomfortable with ms cramping . Had been getting better with being regular with bowel movements (once per day). PT-OP-I Pelvic Floor Start: 02/27/23 07:56 Freq: Status: Active Protocol: Document 02/27/23 08:00 LRN (Rec: 02/27/23 08:55 LRN [id number]) Pelvic Floor Assessment Urine Pelvic Floor Surgery No Urinary Symptoms Pain Leakage Size Small Leakage Cause Cough,Sneeze Pads Used In 24 Hours 1-2 Urine Pad Type Panty Liner Bowel Bowel Symptoms Constipation Other Bowel Symptoms Diarrhea Bowel Movement Frequency Usually daily, sometimes every other day. [place] Stool Chart Comments Cycles between Constipation & Diarrhea Prolapse Prolapse Comments Bulge in area of rectum (6 of PF clock), that was spongy, and no tenderness. Not consistent with feeling of rectocele. Contraction Ability Manual Muscle Testing Left 1 Manual Muscle Testing Right 1 Manual Muscle Testing Anterior 1 Manual Muscle Testing Posterior 3 Muscle Endurance (Seconds) 10 Number of Quick Contractions In 10 3 Seconds Comments Pelvic Floor Comments Pt PF contractions are sluggish. Pt reports PF pain with menstration and occasionally with exercise. Pt lately finds exercise helps decrease pain. Pt PF pain is worse if not regular with bowel movements. PT-OP-J Posture/Palpation/Skin Start: 02/27/23 07:56 Freq: Status: Active Protocol: Document 02/27/23 08:00 LRN (Rec: 02/27/23 08:55 LRN [id number]) Posture Evaluation Position Standing Head/C-Spine Posture Neutral Position T-Spine Posture Flattened L-Spine Posture Increased Lordosis Scapula Posture (L) Neutral Arm Posture (L) Neutral,(R) Neutral Pelvis Posture Anteriorly Tilted,(R) Rotated Posterior,(R) PSIS Posterior Knee Posture (L) Genu Valgus,(R) Genu Valgus Comments Posture Comments Chest is forward over her hips , R innominate: Posterly rotated and appears posterior displaced with jacquard loom card changer-anterior assessment. Palpation Assessment Location Abdomen Palpation Location Diastasis Rectus Palpation Details Umbilicus 4 above: Xiphoid Process: Closed Umbilicus 3 above: 2 finger widths Umbilicus 2 above: 2 finger widths Umbilicus 1 above: 2 finger widths Umbilicus Umbilicus: 1 below: 1 finger widths Umbilicus: 2 below: 1 finger widths Umbilicus: 3 below: 1 finger widths Umbilicus: 4 below: Pubic Symphysis closed PT-OP-K Range of Motion Start: 02/27/23 07:56 Freq: Status: Active Protocol: Document 02/27/23 08:00 LRN (Rec: 02/27/23 08:55 LRN [id number]) Lumbar Spine Range of Motion Lumbar Spine Active Degrees Testing Position Standing Flexion 115 Extension 32 Rotation Left 45 Rotation Right 40 Lateral Flexion Left 23 Lateral Flexion Right 12 Comments Trunk AROM: Flexion is 115 deg?s with 70 deg?s hip flexion, Trunk extension is 32 deg?s with 5 deg?s hip extension. 115/70 32/5 Hip Goniometric Range of Motion Hip Right Passive Testing Position Supine Internal Rotation 55 External Rotation 50 Left Passive Testing Position Supine Internal Rotation 60 External Rotation 40 Comments Visible decreased active hip IR in sitting. PT-OP-M Strength Start: 02/27/23 07:56 Freq: Status: Active Protocol: Document 02/27/23 08:00 LRN (Rec: 02/27/23 08:55 LRN [id number]) Trunk Strength Trunk Manual Muscle Testing Core Stabilization Decreased core stability with lift of R LE hip flex., L hip AD Hip Strength Hip Manual Muscle Testing Right Flexion (L2) 5 Normal Extension (S1) 5 Normal Abduction 5 Normal Adduction 5 Normal External Rotation 5 Normal Internal Rotation 5 Normal Left Flexion (L2) 5 Normal Extension (S1) 5 Normal Abduction 5 Normal Adduction 3 Fair External Rotation 5 Normal Internal Rotation 5 Normal PT-OP-Q Treatments Start: 02/27/23 07:56 Freq: Status: Active Protocol: Document 04/17/23 09:36 LRN (Rec: 04/17/23 10:29 LRN [id number]) Therapeutic Exercises Supine Exercises Trunk rot/neck RSB-ext Supine Exercise Name Trunk rot (L knee rolls)/neck RSB-slight R rot Reps/Minutes 10x Fig 4 stretch Supine Exercise Name Fig 4 stretch Side bilateral Reps/Minutes 2' Vagus n. relaxation Supine Exercise Name Exhale with Ohhh, hhh, Ummm Equipment Used pt hand placement on neck for vibration. Reps/Minutes 2' Other Exercises Transfer training w/breathwork Other Exercise Name Stand<>sit<>supine Manual Therapy Treatment Soft Tissue Mobilization Neck/vagus n. Body Location L neck/vagus n. Mobilization Type Myofascial Release,Sustained Pressure Intensity/Depth Superficial Body Position Hooklying Abdomen Body Location Lower abdomen Mobilization Type Myofascial Release Body Position Hooklying Comments L Uterus location for L rot of lower abdomen. L Overy location for increase soft tissue mobility between overry and uterus. Self-Care/Home Management Treatment Education Other Education Issued, discussed & educated pt in proper sitting/standing posture and educated in proper body mechanics for ADLs ( proper squatting and lifting, and sit to stand using breathwork) and general movement (to include ex). Issued, discussed & educated pt in pain management technique of use of cryotherapy with issuance of RICE technique with focus on use of cryotherapy. Pt educated in log roll transfer to protect DR and transfers with breath to manage core pressure. PT-OP-T Assessment and Plan Start: 02/27/23 07:56 Freq: Status: Active Protocol: Document 04/17/23 09:36 LRN (Rec: 04/17/23 10:29 LRN [id number]) Physical Therapy Assessment Goals Four Impairment Diastasis Rectus causing core instability Impairment Initial Assessment: Umbilicus 4 above: Xiphoid Process: Closed Umbilicus 3 above: 2 finger widths Umbilicus 2 above: 2 finger widths Umbilicus 1 above: 2 finger widths Umbilicus Umbilicus: 1 below: 1 finger widths Umbilicus: 2 below: 1 finger widths Umbilicus: 3 below: 1 finger widths Umbilicus: 4 below: Pubic Symphysis closed Short Term Goal (STG) Pt will be educated in best practice to minimize DR with transfers using sheet/towel method. STG Duration 03/20/23 (04/07/23: MET GOAL) Equipment Or Machinery Cleaner Goal (LTG) Decrease DR, greater expected decrease to occur in > 6 months due to post hormonal changes. LTG Duration 08/27/23 Three Impairment Decreased function Impairment Lower abdominal/pelvic floor/ LBP with lifting her child Limited with exercise due to onset of lower abdominal/LB/ Pelvic pain. Short Term Goal (STG) Pt will be educated in proper sitting/standing posture and educated in proper body mechanics for ADLs and exercise. STG Duration 03/27/23 (04/17/23: MET GOAL) [facility]ci Goal (LTG) Pt educated in proper transfers and functional mobility to lessen core abdominal pressure with pt able to return to modified exercise and functional activities with minimal onset of lower abdominal/PF/LBP. LTG Duration 06/28/23 Two Impairment Lower abdominal, PF, and LBP rated 1-2/10. Short Term Goal (STG) Pt will be educated in self care pain/inflammation management with cold pack and RICE technique. STG Duration 03/13/23 (04/17/23: MET GOAL ) [facility]ci Goal (LTG) Pt will be educated in proper hydration norms, BM massage and proper bowel care with lessening of onset of lower abdominal/PF/LBP to minimal or pt tolerable level. LTG Duration 05/10/23 One Impairment Pt lacks self care HEP. Short Term Goal (STG) Pt will be independent in appropriate self care & hip stretches. 04/17/23: I/S pt in hip ER stretch (Fig 4) STG Duration 05/29/23 progressed 04/17/23 [facility] Goal (LTG) Pt will be independent in appropriate PF (to decrease urinary leakage) & core strengthening ex's to improve posture of rib cage over hips. LTG Duration 05/29/23 Progress Towards Goals Progress Comments STG #2. #3 MET. Assessment Summary Assessment Pt is very receptive to education on pain management techniques to lower abdomen and low back, proper posturing in sit/stand, log roll technique for transfers to protect DR, and proper body mechanics with ADLs. Physical Therapy Plan Frequency and Duration Frequency of Treatment 1x/Week Plan of Care Start Date 02/27/23 Plan of Care End Date 08/27/23 Next Visit Focus/Plan Next Note Type Treatment Note Next Visit Plan Monitor for DR protection methods. Review transfer with breath to minimize core pressure and to protect DR. Educate in proper transfers and functional mobility to lessen core abdominal pressure Assess Sacral positioning. Education: in proper Kegel without use of substitute muscles and assess PF with EMG biofeedback; discuss & educate pt in core/ PF stabilization for proper abdominal pressure system; proper deep breathing. Biofeedback assessment/ training with vaginal/rectal/ surface sensor(s). PF and L hip IR/AD strengthening, improve hip ER and trunk R SB mobility, Check abdominal soft tissue ( bladder) mobility, DR protection/TA strengthening , K-taping for
--- NOTE | 2023-04-24 16:56 | PT.OTN ---
Current Diagnoses Other chronic pain (04/24/23) Constipation, unspecified (04/24/23) Low back pain, unspecified (04/24/23) Separation of muscle (nontraumatic), unspecified site (04/24/23) Stress incontinence (female) (male) (04/24/23) Other specified conditions associated with female genital organs and menstrual cycle (04/24/23) Pelvic and perineal pain (04/24/23) Physical Therapy Treatment Note PT-OP-A Visit Information Start: 02/27/23 07:56 Freq: Status: Active Protocol: Document 04/24/23 09:38 LRN (Rec: 04/24/23 10:25 LRN [id number]) Out-Patient Physical Therapy Visit Information Visit Information Visit Type Treatment Note Visit Start Time 09:38 Visit Stop Time 10:22 Total Visit Minutes 44 Visit Number 4 Evaluation Information Evaluation Date 02/27/23 Precautions Precautions D&E after miscarriage 04/2022, Depression, MADISON's. PT-OP-B Current Condition Start: 02/27/23 07:56 Freq: Status: Active Protocol: Document 02/27/23 08:00 LRN (Rec: 02/27/23 08:55 LRN [id number]) Current Condition History of Current Condition Onset Date 04/2022 Current Complaints Pelvic pain History of Current Condition Pelvic pain onset after miscarriage of 17 wk old fetus . Pt underwent D&E in April 2022 (pt reported fetus was 11 days prior to miscarriage). She reports heavy bleeding after D&E for a month, then noticed a lot of lower trunk pain. She states 2 blood vessels were found to be dilated more than normal, then 2 months later found vessels still enlarged. Prior to had pelvic pain but they it was thought to be due to endometriosis, but had no proof. She has now been diagnosed with pelvic congestion by [facility] and was referred to to get ovarian veins embolized . Pt has chosen to not do surgery because she doesn't feel she has enough pain to merit surgery. She would rather try physical therapy first to see if it she can avoid surgery. Per intake form and pt report of PMH: Varicose veins, pelvic congestion. MADISON's thought due to allergies, 1-2 every 2 weeks. Future Testing and Treatments Planned Samantha Jacques next visit May ~ or . Developmental History Developmental History Pt reports has also been diagnosed with IBS and has had PF pain history. States after first had start of pelvic pain. First born in 2015 w/o complications and no onset of incontinence. She reports bad UTI in 2020, resulting in onset of pressure and discomfort. States she has been found to have blood in urine by Dr. Ricketts, but urethra scope found everything to be okay. She is still having microbleeding that is thought to be due to microbleeding from pelvic congestion. Pt used to exercise a lot, but since miscarriage hasn't. Found pain problem due to exercise, after exercise would experience a lot of pain. Wants to run again. Used to run 3K's after 1st . After stopped, but now jogs/walks on TM, does ALYSSA exer, Pilates and yoga at home workouts. Treatment Goals Patient/Caregiver Goals Pt goal with therapy is to relieve pelvic pain to avoid surgery. 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 PT-OP-C Subjective Start: 02/27/23 07:56 Freq: Status: Active Protocol: Document 04/24/23 09:38 LRN (Rec: 04/24/23 10:25 LRN [id number]) OP-PT Subjective Patient Comments Patient Comments Middle of peak ovulation and that is when the cramping starts. Moving and heat helps with cramping. worse in mornings and evenings. Lower spine is bothering her every now and then. Has been bucking hay manda. PT-OP-I Pelvic Floor Start: 02/27/23 07:56 Freq: Status: Active Protocol: Document 02/27/23 08:00 LRN (Rec: 02/27/23 08:55 LRN [id number]) Pelvic Floor Assessment Urine Pelvic Floor Surgery No Urinary Symptoms Pain Leakage Size Small Leakage Cause Cough,Sneeze Pads Used In 24 Hours 1-2 Urine Pad Type Panty Liner Bowel Bowel Symptoms Constipation Other Bowel Symptoms Diarrhea Bowel Movement Frequency Usually daily, sometimes every other day. [place] Stool Chart Comments Cycles between Constipation & Diarrhea Prolapse Prolapse Comments Bulge in area of rectum (6 of PF clock), that was spongy, and no tenderness. Not consistent with feeling of rectocele. Contraction Ability Manual Muscle Testing Left 1 Manual Muscle Testing Right 1 Manual Muscle Testing Anterior 1 Manual Muscle Testing Posterior 3 Muscle Endurance (Seconds) 10 Number of Quick Contractions In 10 3 Seconds Comments Pelvic Floor Comments Pt PF contractions are sluggish. Pt reports PF pain with menstration and occasionally with exercise. Pt lately finds exercise helps decrease pain. Pt PF pain is worse if not regular with bowel movements. PT-OP-J Posture/Palpation/Skin Start: 02/27/23 07:56 Freq: Status: Active Protocol: Document 04/24/23 09:38 LRN (Rec: 04/24/23 10:25 LRN [id number]) Palpation Assessment Location Sacrum Palpation Location Sacrum Palpation Details Decreased mobility of R PA of sacral sulcus, Shear to the L , R PA of SIMIN & ischial tub Abdomen Palpation Location Abdomen Palpation Details Doming with head lift in lower abdomen. PT-OP-K Range of Motion Start: 02/27/23 07:56 Freq: Status: Active Protocol: Document 02/27/23 08:00 LRN (Rec: 02/27/23 08:55 LRN [id number]) Lumbar Spine Range of Motion Lumbar Spine Active Degrees Testing Position Standing Flexion 115 Extension 32 Rotation Left 45 Rotation Right 40 Lateral Flexion Left 23 Lateral Flexion Right 12 Comments Trunk AROM: Flexion is 115 deg?s with 70 deg?s hip flexion, Trunk extension is 32 deg?s with 5 deg?s hip extension. 115/70 32/5 Hip Goniometric Range of Motion Hip Right Passive Testing Position Supine Internal Rotation 55 External Rotation 50 Left Passive Testing Position Supine Internal Rotation 60 External Rotation 40 Comments Visible decreased active hip IR in sitting. PT-OP-M Strength Start: 02/27/23 07:56 Freq: Status: Active Protocol: Document 02/27/23 08:00 LRN (Rec: 02/27/23 08:55 LRN [id number]) Trunk Strength Trunk Manual Muscle Testing Core Stabilization Decreased core stability with lift of R LE hip flex., L hip AD Hip Strength Hip Manual Muscle Testing Right Flexion (L2) 5 Normal Extension (S1) 5 Normal Abduction 5 Normal Adduction 5 Normal External Rotation 5 Normal Internal Rotation 5 Normal Left Flexion (L2) 5 Normal Extension (S1) 5 Normal Abduction 5 Normal Adduction 3 Fair External Rotation 5 Normal Internal Rotation 5 Normal PT-OP-Q Treatments Start: 02/27/23 07:56 Freq: Status: Active Protocol: Document 04/24/23 09:38 LRN (Rec: 04/24/23 10:25 [facility] [id number]) Therapeutic Exercises Supine Exercises Trunk rot/neck RSB-ext Supine Exercise Name Trunk rot (L>R knee rolls)/ neck RSB-slight R rot Side bilateral Reps/Minutes 10x Fig 4 stretch Supine Exercise Name Fig 4 stretch Side bilateral Reps/Minutes 4' TA tightening Supine Exercise Name TA tightening - cuing for breathing with contraction Reps/Minutes 6' Comments Extra time taken for training for proper contraction Other Exercises Transfer training w/breathwork Other Exercise Name sit<>supine/Breath/TA training Reps/Minutes 4' Comments Good techniques with cuing given. Manual Therapy Treatment Soft Tissue Mobilization Sacral balancing Body Location Sacral balancing Mobilization Type Sustained Pressure Intensity/Depth Moderate Body Position Prone Comments R PA Sacral sulcus, Shear to the L , R PA of SIMIN and ischial tuberosity, 6 pt balancing. Neck/vagus n. Body Location L neck/vagus n. Mobilization Type Myofascial Release,Sustained Pressure Intensity/Depth Superficial Body Position Hooklying Abdomen Body Location Lower abdomen Mobilization Type Myofascial Release Body Position Hooklying Comments L Uterus location for L rot of lower abdomen. PT-OP-T Assessment and Plan Start: 02/27/23 07:56 Freq: Status: Active Protocol: Document 04/24/23 09:38 LRN (Rec: 04/24/23 10:25 [facility] [id number]) Physical Therapy Assessment Goals Four Impairment Diastasis Rectus causing core instability Impairment Initial Assessment: Umbilicus 4 above: Xiphoid Process: Closed Umbilicus 3 above: 2 finger widths Umbilicus 2 above: 2 finger widths Umbilicus 1 above: 2 finger widths Umbilicus Umbilicus: 1 below: 1 finger widths Umbilicus: 2 below: 1 finger widths Umbilicus: 3 below: 1 finger widths Umbilicus: 4 below: Pubic Symphysis closed Short Term Goal (STG) Pt will be educated in best practice to minimize DR with transfers using sheet/towel method. STG Duration 03/20/23 (04/07/23: MET GOAL) Usp Goal (LTG) Decrease DR, greater expected decrease to occur in > 6 months due to post hormonal changes. LTG Duration 08/27/23 Three Impairment Decreased function Impairment Lower abdominal/pelvic floor/ LBP with lifting her child Limited with exercise due to onset of lower abdominal/LB/ Pelvic pain. Short Term Goal (STG) Pt will be educated in proper sitting/standing posture and educated in proper body mechanics for ADLs and exercise. STG Duration 03/27/23 (04/17/23: MET GOAL) Angular Developer Goal (LTG) Pt educated in proper transfers and functional mobility to lessen core abdominal pressure with pt able to return to modified exercise and functional activities with minimal onset of lower abdominal/PF/LBP. 04/24/23: Pt educated in proper transfers with proper breathwork to to lessen core abdominal pressure. LTG Duration 06/28/23 progressed 04/24/23 (need educ in functl acitivites) Two Impairment Lower abdominal, PF, and LBP rated 1-2/10. Short Term Goal (STG) Pt will be educated in self care pain/inflammation management with cold pack and RICE technique. STG Duration 03/13/23 (04/17/23: MET GOAL ) Angular Developer Goal (LTG) Pt will be educated in proper hydration norms, BM massage and proper bowel care with lessening of onset of lower abdominal/PF/LBP to minimal or pt tolerable level. LTG Duration 05/10/23 One Impairment Pt lacks self care HEP. Short Term Goal (STG) Pt will be independent in appropriate self care & hip stretches. 04/17/23: I/S pt in hip ER stretch (Fig 4) STG Duration 05/29/23 progressed 04/17/23 Usp Goal (LTG) Pt will be independent in appropriate PF (to decrease urinary leakage) & core strengthening ex's to improve posture of rib cage over hips. LTG Duration 05/29/23 Assessment Summary Assessment Pt is 10 months s/p miscarriage of 17 wk fetus f/b D&E surgery with pelvic congestion and PP since surgery. She has increased pain with increase in core pressure. She returns today reporting being in the middle of her cycle; therefore is having more ms cramping and pain. She also reports recently working at [employer] weighing up to 15#. The pt appeared to have swelling in her lower abdominal region and discomfort with STM (urachus, bladder, uterus). She had some relief of pain with Sacral balancing that I was not able to complete due to tightness on her R side with all mobs requiring extra time to get the tissues to mobilize . Further STM is needed. Pt showed good DR protection with use of towel for transfers. Physical Therapy Plan Frequency and Duration Frequency of Treatment 1x/Week Plan of Care Start Date 02/27/23 Plan of Care End Date 08/27/23 Next Visit Focus/Plan Next Note Type Treatment Note Next Visit Plan Assess w/o cuing for proper transfers and functional mobility to lessen core abdominal pressure (breathwork ). Assess Sacral positioning and cont sacral balancing as needed (in position of D&C). Education: in proper Kegel without use of substitute muscles Biofeedback assessment/ training with vaginal, rectal, or surface sensor(s). Discuss & educate pt in core/ PF stabilization with proper abdominal pressure system; proper deep breathing. Check abdominal soft tissue ( bladder) mobility, PF and L hip IR/AD strengthening, improve hip ER and trunk R SB mobility, TA strengthening for DR protection, ?K-taping for
--- NOTE | 2023-05-07 16:04 | PT.OTN ---
Current Diagnoses Other chronic pain (05/07/23) Constipation, unspecified (05/07/23) Low back pain, unspecified (05/07/23) Separation of muscle (nontraumatic), unspecified site (05/07/23) Stress incontinence (female) (male) (05/07/23) Other specified conditions associated with female genital organs and menstrual cycle (05/07/23) Pelvic and perineal pain (05/07/23) Physical Therapy Treatment Note PT-OP-A Visit Information Start: 02/27/23 07:56 Freq: Status: Active Protocol: Document 05/07/23 10:30 LRN (Rec: 05/07/23 11:21 LRN [id number]) Out-Patient Physical Therapy Visit Information Visit Information Visit Type Treatment Note Visit Start Time 10:30 Visit Stop Time 11:17 Total Visit Minutes 47 Visit Number 6 Evaluation Information Evaluation Date 02/27/23 Precautions Precautions D&E after miscarriage 04/2022, Depression, MADISON's. PT-OP-B Current Condition Start: 02/27/23 07:56 Freq: Status: Active Protocol: Document 02/27/23 08:00 LRN (Rec: 02/27/23 08:55 LRN [id number]) Current Condition History of Current Condition Onset Date 04/2022 Current Complaints Pelvic pain History of Current Condition Pelvic pain onset after miscarriage of 17 wk old fetus . Pt underwent D&E in April 2022 (pt reported fetus was 11 days prior to miscarriage). She reports heavy bleeding after D&E for a month, then noticed a lot of lower trunk pain. She states 2 blood vessels were found to be dilated more than normal, then 2 months later found vessels still enlarged. Prior to had pelvic pain but they it was thought to be due to endometriosis, but had no proof. She has now been diagnosed with pelvic congestion by [facility] and was referred to to get ovarian veins embolized . Pt has chosen to not do surgery because she doesn't feel she has enough pain to merit surgery. She would rather try physical therapy first to see if it she can avoid surgery. Per intake form and pt report of PMH: Varicose veins, pelvic congestion. MADISON's thought due to allergies, 1-2 every 2 weeks. Future Testing and Treatments Planned Samantha Jacques next visit May ~ or . Developmental History Developmental History Pt reports has also been diagnosed with IBS and has had PF pain history. States after first had start of pelvic pain. First born in 2015 w/o complications and no onset of incontinence. She reports bad UTI in 2020, resulting in onset of pressure and discomfort. States she has been found to have blood in urine by Dr. Ricketts, but urethra scope found everything to be okay. She is still having microbleeding that is thought to be due to microbleeding from pelvic congestion. Pt used to exercise a lot, but since miscarriage hasn't. Found pain problem due to exercise, after exercise would experience a lot of pain. Wants to run again. Used to run 3K's after 1st . After stopped, but now jogs/walks on TM, does ALYSSA exer, Pilates and yoga at home workouts. Treatment Goals Patient/Caregiver Goals Pt goal with therapy is to relieve pelvic pain to avoid surgery. 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 PT-OP-C Subjective Start: 02/27/23 07:56 Freq: Status: Active Protocol: Document 05/07/23 10:30 LRN (Rec: 05/07/23 11:21 LRN [id number]) OP-PT Subjective Patient Comments Patient Comments Period is going to start soon, but hasn't had the feeling of pressure, fullness, or cramping. Having only menstrual discomfort. Occasional pain in the one spot on the L side that comes and goes. Typically has symptoms of ovulation ( cramping) 4 days after period and when in the middle of ovulation is when she has the most full pressure feeling. She denies much tension and stabbing. PT-OP-I Pelvic Floor Start: 02/27/23 07:56 Freq: Status: Active Protocol: Document 02/27/23 08:00 LRN (Rec: 02/27/23 08:55 LRN [id number]) Pelvic Floor Assessment Urine Pelvic Floor Surgery No Urinary Symptoms Pain Leakage Size Small Leakage Cause Cough,Sneeze Pads Used In 24 Hours 1-2 Urine Pad Type Panty Liner Bowel Bowel Symptoms Constipation Other Bowel Symptoms Diarrhea Bowel Movement Frequency Usually daily, sometimes every other day. [place] Stool Chart Comments Cycles between Constipation & Diarrhea Prolapse Prolapse Comments Bulge in area of rectum (6 of PF clock), that was spongy, and no tenderness. Not consistent with feeling of rectocele. Contraction Ability Manual Muscle Testing Left 1 Manual Muscle Testing Right 1 Manual Muscle Testing Anterior 1 Manual Muscle Testing Posterior 3 Muscle Endurance (Seconds) 10 Number of Quick Contractions In 10 3 Seconds Comments Pelvic Floor Comments Pt PF contractions are sluggish. Pt reports PF pain with menstration and occasionally with exercise. Pt lately finds exercise helps decrease pain. Pt PF pain is worse if not regular with bowel movements. PT-OP-J Posture/Palpation/Skin Start: 02/27/23 07:56 Freq: Status: Active Protocol: Document 04/24/23 09:38 LRN (Rec: 04/24/23 10:25 LRN [id number]) Palpation Assessment Location Sacrum Palpation Location Sacrum Palpation Details Decreased mobility of R PA of sacral sulcus, Shear to the L , R PA of SIMIN & ischial tub Abdomen Palpation Location Abdomen Palpation Details Doming with head lift in lower abdomen. PT-OP-K Range of Motion Start: 02/27/23 07:56 Freq: Status: Active Protocol: Document 02/27/23 08:00 LRN (Rec: 02/27/23 08:55 LRN [id number]) Lumbar Spine Range of Motion Lumbar Spine Active Degrees Testing Position Standing Flexion 115 Extension 32 Rotation Left 45 Rotation Right 40 Lateral Flexion Left 23 Lateral Flexion Right 12 Comments Trunk AROM: Flexion is 115 deg?s with 70 deg?s hip flexion, Trunk extension is 32 deg?s with 5 deg?s hip extension. 115/70 32/5 Hip Goniometric Range of Motion Hip Right Passive Testing Position Supine Internal Rotation 55 External Rotation 50 Left Passive Testing Position Supine Internal Rotation 60 External Rotation 40 Comments Visible decreased active hip IR in sitting. PT-OP-M Strength Start: 02/27/23 07:56 Freq: Status: Active Protocol: Document 02/27/23 08:00 LRN (Rec: 02/27/23 08:55 LRN [id number]) Trunk Strength Trunk Manual Muscle Testing Core Stabilization Decreased core stability with lift of R LE hip flex., L hip AD Hip Strength Hip Manual Muscle Testing Right Flexion (L2) 5 Normal Extension (S1) 5 Normal Abduction 5 Normal Adduction 5 Normal External Rotation 5 Normal Internal Rotation 5 Normal Left Flexion (L2) 5 Normal Extension (S1) 5 Normal Abduction 5 Normal Adduction 3 Fair External Rotation 5 Normal Internal Rotation 5 Normal PT-OP-Q Treatments Start: 02/27/23 07:56 Freq: Status: Active Protocol: Document 05/07/23 10:30 LRN (Rec: 05/07/23 11:21 LRN [id number]) Manual Therapy Treatment Soft Tissue Mobilization Sacral balancing Body Location Sacral/Pub balancing Mobilization Type Sustained Pressure Intensity/Depth Moderate Body Position Prone Comments L mild inferior glide & PA Sacral sulcus, Shear to the R, L PA of SIMIN and R PA of ischial tuberosity, 6 pt balancing. Pubic balancing. Abdomen Body Location Lower abdomen Mobilization Type Myofascial Release Body Position Hooklying Comments L Uterus location for L rot of lower abdomen. Urachus mob R lateral trunk stretch. Self-Care/Home Management Treatment Education Other Education Discussed and quick review of DR protection with towel for transfer sup>sit, and DR monitoring for exercise in gym . Activities Self-Care/Home Management Activities Pt educated in self R trunk rotation manual stretch. Issued handouts for HEP of Hip ER stretch (fig 4) and use of towel for DR protection. PT-OP-T Assessment and Plan Start: 02/27/23 07:56 Freq: Status: Active Protocol: Document 05/07/23 10:30 LRN (Rec: 05/07/23 11:21 LRN [id number]) Physical Therapy Assessment Goals Four Impairment Diastasis Rectus causing core instability Impairment Initial Assessment: Umbilicus 4 above: Xiphoid Process: Closed Umbilicus 3 above: 2 finger widths Umbilicus 2 above: 2 finger widths Umbilicus 1 above: 2 finger widths Umbilicus Umbilicus: 1 below: 1 finger widths Umbilicus: 2 below: 1 finger widths Umbilicus: 3 below: 1 finger widths Umbilicus: 4 below: Pubic Symphysis closed Short Term Goal (STG) Pt will be educated in best practice to minimize DR with transfers using sheet/towel method. STG Duration 03/20/23 (04/07/23: MET GOAL) Care Home Goal (LTG) Decrease DR, greater expected decrease to occur in > 6 months due to post hormonal changes. LTG Duration 08/27/23 Three Impairment Decreased function Impairment Lower abdominal/pelvic floor/ LBP with lifting her child Limited with exercise due to onset of lower abdominal/LB/ Pelvic pain. Short Term Goal (STG) Pt will be educated in proper sitting/standing posture and educated in proper body mechanics for ADLs and exercise. STG Duration 03/27/23 (04/17/23: MET GOAL) Care Home Goal (LTG) Pt educated in proper transfers and functional mobility to lessen core abdominal pressure with pt able to return to modified exercise and functional activities with minimal onset of lower abdominal/PF/LBP. 04/24/23: Pt educated in proper transfers with proper breathwork to to lessen core abdominal pressure. LTG Duration 06/28/23 progressed 04/24/23 (need educ in functl acitivites) Two Impairment Lower abdominal, PF, and LBP rated 1-2/10. Short Term Goal (STG) Pt will be educated in self care pain/inflammation management with cold pack and RICE technique. STG Duration 03/13/23 (04/17/23: MET GOAL ) Chief Crew Scheduler Goal (LTG) Pt will be educated in proper hydration norms, BM massage and proper bowel care with lessening of onset of lower abdominal/PF/LBP to minimal or pt tolerable level. LTG Duration 05/10/23 One Impairment Pt lacks self care HEP. Short Term Goal (STG) Pt will be independent in appropriate self care & hip stretches. 04/17/23: I/S pt in hip ER stretch (Fig 4) STG Duration 05/29/23 progressed 04/17/23 Care Home Goal (LTG) Pt will be independent in appropriate PF (to decrease urinary leakage) & core strengthening ex's to improve posture of rib cage over hips. LTG Duration 05/29/23 Assessment Summary Assessment Pt is 11 months s/p miscarriage of 17 wk fetus f/b D&E surgery with pelvic congestion and Pelvic Pain since surgery. She is not having the typical pressure or fullness since last session, only menstrual discomfort. Her pain and discomfort usually comes 4 days after her period (symptoms of ovulation) and worst in middle of ovulation. Sacrum was not fully balanced as she had tightness with inferior glide of L sacral sulcus and R Pube superior glide. R trunk rotators are tight. Physical Therapy Plan Frequency and Duration Frequency of Treatment 1x/Week Plan of Care Start Date 02/27/23 Plan of Care End Date 08/27/23 Next Visit Focus/Plan Next Note Type Treatment Note Next Visit Plan Assess proper transfers and functional mobility w/o cuing, to lessen core abdominal pressure (breathwork). Start with TM exercise, then cont sacral balancing as needed (in position of D&C). Teach proper proper deep breathing. Normalize abdominal soft tissue (bladder) mobility (R trunk rotators are tight), Educate in proper functional mobility to lessen core abdominal pressure. Educate in proper hydration norms, BM massage and proper bowel care for lessening of onset of lower abdominal/PF/ LBP. Education: in proper Kegel without use of substitute muscles Biofeedback assessment/ training with vaginal, rectal, or surface sensor(s). Discuss & educate pt in core stabilization (TA strengthening for DR protection, ?K-taping for DR) Discuss & educate in PF stabilization with proper abdominal pressure system; PF and L hip IR/AD strengthening, improve hip ER and trunk R SB mobility,
--- NOTE | 2023-05-21 10:31 | PT.OTN ---
Current Diagnoses Other chronic pain (05/21/23) Constipation, unspecified (05/21/23) Low back pain, unspecified (05/21/23) Separation of muscle (nontraumatic), unspecified site (05/21/23) Stress incontinence (female) (male) (05/21/23) Other specified conditions associated with female genital organs and menstrual cycle (05/21/23) Pelvic and perineal pain (05/21/23) Physical Therapy Treatment Note PT-OP-A Visit Information Start: 02/27/23 07:56 Freq: Status: Active Protocol: Document 05/21/23 09:29 LRN (Rec: 05/21/23 10:31 LRN [id number]) Out-Patient Physical Therapy Visit Information Visit Information Visit Type Treatment Note Visit Start Time 09:30 Visit Stop Time 10:08 Total Visit Minutes 38 Visit Number 7 Evaluation Information Evaluation Date 02/27/23 Precautions Precautions D&E after miscarriage 04/2022, Depression, MADISON's. PT-OP-B Current Condition Start: 02/27/23 07:56 Freq: Status: Active Protocol: Document 02/27/23 08:00 LRN (Rec: 02/27/23 08:55 LRN [id number]) Current Condition History of Current Condition Onset Date 04/2022 Current Complaints Pelvic pain History of Current Condition Pelvic pain onset after miscarriage of 17 wk old fetus . Pt underwent D&E in April 2022 (pt reported fetus was 11 days prior to miscarriage). She reports heavy bleeding after D&E for a month, then noticed a lot of lower trunk pain. She states 2 blood vessels were found to be dilated more than normal, then 2 months later found vessels still enlarged. Prior to had pelvic pain but they it was thought to be due to endometriosis, but had no proof. She has now been diagnosed with pelvic congestion by [facility] and was referred to to get ovarian veins embolized . Pt has chosen to not do surgery because she doesn't feel she has enough pain to merit surgery. She would rather try physical therapy first to see if it she can avoid surgery. Per intake form and pt report of PMH: Varicose veins, pelvic congestion. MADISON's thought due to allergies, 1-2 every 2 weeks. Future Testing and Treatments Planned Samantha Jacques next visit May ~ or . Developmental History Developmental History Pt reports has also been diagnosed with IBS and has had PF pain history. States after first had start of pelvic pain. First born in 2015 w/o complications and no onset of incontinence. She reports bad UTI in 2020, resulting in onset of pressure and discomfort. States she has been found to have blood in urine by Dr. Ricketts, but urethra scope found everything to be okay. She is still having microbleeding that is thought to be due to microbleeding from pelvic congestion. Pt used to exercise a lot, but since miscarriage hasn't. Found pain problem due to exercise, after exercise would experience a lot of pain. Wants to run again. Used to run 3K's after 1st . After stopped, but now jogs/walks on TM, does ALYSSA exer, Pilates and yoga at home workouts. Treatment Goals Patient/Caregiver Goals Pt goal with therapy is to relieve pelvic pain to avoid surgery. 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 PT-OP-C Subjective Start: 02/27/23 07:56 Freq: Status: Active Protocol: Document 05/21/23 09:29 LRN (Rec: 05/21/23 10:31 LRN [id number]) OP-PT Subjective Patient Comments Patient Comments Haven't had much cramping but stiff in hips, knees, back. Is ovulating but isn't having much pain and minimal cramping . BM's have been off. Today the stomach is nauseous, might be due to waking up abruptly. PT-OP-I Pelvic Floor Start: 02/27/23 07:56 Freq: Status: Active Protocol: Document 02/27/23 08:00 LRN (Rec: 02/27/23 08:55 LRN [id number]) Pelvic Floor Assessment Urine Pelvic Floor Surgery No Urinary Symptoms Pain Leakage Size Small Leakage Cause Cough,Sneeze Pads Used In 24 Hours 1-2 Urine Pad Type Panty Liner Bowel Bowel Symptoms Constipation Other Bowel Symptoms Diarrhea Bowel Movement Frequency Usually daily, sometimes every other day. [place] Stool Chart Comments Cycles between Constipation & Diarrhea Prolapse Prolapse Comments Bulge in area of rectum (6 of PF clock), that was spongy, and no tenderness. Not consistent with feeling of rectocele. Contraction Ability Manual Muscle Testing Left 1 Manual Muscle Testing Right 1 Manual Muscle Testing Anterior 1 Manual Muscle Testing Posterior 3 Muscle Endurance (Seconds) 10 Number of Quick Contractions In 10 3 Seconds Comments Pelvic Floor Comments Pt PF contractions are sluggish. Pt reports PF pain with menstration and occasionally with exercise. Pt lately finds exercise helps decrease pain. Pt PF pain is worse if not regular with bowel movements. PT-OP-J Posture/Palpation/Skin Start: 02/27/23 07:56 Freq: Status: Active Protocol: Document 04/24/23 09:38 LRN (Rec: 04/24/23 10:25 LRN [id number]) Palpation Assessment Location Sacrum Palpation Location Sacrum Palpation Details Decreased mobility of R PA of sacral sulcus, Shear to the L , R PA of SIMIN & ischial tub Abdomen Palpation Location Abdomen Palpation Details Doming with head lift in lower abdomen. PT-OP-K Range of Motion Start: 02/27/23 07:56 Freq: Status: Active Protocol: Document 02/27/23 08:00 LRN (Rec: 02/27/23 08:55 LRN [id number]) Lumbar Spine Range of Motion Lumbar Spine Active Degrees Testing Position Standing Flexion 115 Extension 32 Rotation Left 45 Rotation Right 40 Lateral Flexion Left 23 Lateral Flexion Right 12 Comments Trunk AROM: Flexion is 115 deg?s with 70 deg?s hip flexion, Trunk extension is 32 deg?s with 5 deg?s hip extension. 115/70 32/5 Hip Goniometric Range of Motion Hip Right Passive Testing Position Supine Internal Rotation 55 External Rotation 50 Left Passive Testing Position Supine Internal Rotation 60 External Rotation 40 Comments Visible decreased active hip IR in sitting. PT-OP-M Strength Start: 02/27/23 07:56 Freq: Status: Active Protocol: Document 02/27/23 08:00 LRN (Rec: 02/27/23 08:55 LRN [id number]) Trunk Strength Trunk Manual Muscle Testing Core Stabilization Decreased core stability with lift of R LE hip flex., L hip AD Hip Strength Hip Manual Muscle Testing Right Flexion (L2) 5 Normal Extension (S1) 5 Normal Abduction 5 Normal Adduction 5 Normal External Rotation 5 Normal Internal Rotation 5 Normal Left Flexion (L2) 5 Normal Extension (S1) 5 Normal Abduction 5 Normal Adduction 3 Fair External Rotation 5 Normal Internal Rotation 5 Normal PT-OP-Q Treatments Start: 02/27/23 07:56 Freq: Status: Active Protocol: Document 05/21/23 09:29 LRN (Rec: 05/21/23 10:31 [facility] [id number]) Therapeutic Exercises Other Exercises 4 pt TA Other Exercise Name TA tightening with relaxation btw Reps/Minutes 5 SH x 10 Comments Cuing for Relaxation after contraction hold Transfer training w/breathwork Other Exercise Name sit<>supine/Breath/TA training Reps/Minutes 8' Comments Much cuing as reminder to Tighten TA before & during transfers. Manual Therapy Treatment Soft Tissue Mobilization Abdomen Body Location Lower abdomen Mobilization Type Myofascial Release Body Position Hooklying Comments Abdomen mob to R due to tightness on L trunk. Abdomen mob with knee rolls to L. L Uterus location for L rot of lower abdomen. Urachus, bladder & uterus region mob w/mostly R rot & L side sidebent right. Lateral trunk stretch to left. Self-Care/Home Management Treatment Education Patient Education Home Exercise Program Other Education Handout issued & reviewed proper sup<>side<>sit transfer with TA tight & breath. Activities Self-Care/Home Management Activities Issued & reviewed HEP: TA tightening (4pt & side) w/ instruction can do sit & supine. PT-OP-T Assessment and Plan Start: 02/27/23 07:56 Freq: Status: Active Protocol: Document 05/21/23 09:29 LRN (Rec: 05/21/23 10:31 [facility] [id number]) Physical Therapy Assessment Goals Four Impairment Diastasis Rectus causing core instability Impairment Initial Assessment: Umbilicus 4 above: Xiphoid Process: Closed Umbilicus 3 above: 2 finger widths Umbilicus 2 above: 2 finger widths Umbilicus 1 above: 2 finger widths Umbilicus Umbilicus: 1 below: 1 finger widths Umbilicus: 2 below: 1 finger widths Umbilicus: 3 below: 1 finger widths Umbilicus: 4 below: Pubic Symphysis closed Short Term Goal (STG) Pt will be educated in best practice to minimize DR with transfers using sheet/towel method. STG Duration 03/20/23 (04/07/23: MET GOAL) Scuba Diving Teacher Goal (LTG) Decrease DR, greater expected decrease to occur in > 6 months due to post hormonal changes. LTG Duration 08/27/23 Three Impairment Decreased function Impairment Lower abdominal/pelvic floor/ LBP with lifting her child Limited with exercise due to onset of lower abdominal/LB/ Pelvic pain. Short Term Goal (STG) Pt will be educated in proper sitting/standing posture and educated in proper body mechanics for ADLs and exercise. STG Duration 03/27/23 (04/17/23: MET GOAL) Detention Goal (LTG) Pt educated in proper transfers and functional mobility to lessen core abdominal pressure with pt able to return to modified exercise and functional activities with minimal onset of lower abdominal/PF/LBP. 04/24/23: Pt educated in proper transfers with proper breathwork to to lessen core abdominal pressure. 05/21/23: Review with handout issued for log roll transfer to protect DR. LTG Duration 06/28/23 progressed 05/21/23 (need educ in functl acitivites) Two Impairment Lower abdominal, PF, and LBP rated 1-2/10. Short Term Goal (STG) Pt will be educated in self care pain/inflammation management with cold pack and RICE technique. STG Duration 03/13/23 (04/17/23: MET GOAL ) Scuba Diving Teacher Goal (LTG) Pt will be educated in proper hydration norms, BM massage and proper bowel care with lessening of onset of lower abdominal/PF/LBP to minimal or pt tolerable level. LTG Duration 05/10/23 One Impairment Pt lacks self care HEP. Short Term Goal (STG) Pt will be independent in appropriate self care & hip stretches. 04/17/23: I/S pt in hip ER stretch (Fig 4) STG Duration 05/29/23 progressed 04/17/23 Scuba Diving Teacher Goal (LTG) Pt will be independent in appropriate PF (to decrease urinary leakage) & core strengthening ex's to improve posture of rib cage over hips. 05/21/23: HEP: TA strengthening 4pt & sidelie, instructions can be done in sit/stand. LTG Duration 05/29/23 progressed 05/21/23 Assessment Summary Assessment Pt is ~12 months s/p miscarriage of 17 wk fetus f/b D&E surgery with pelvic congestion and Pelvic Pain since surgery. Lessening of abdominal cramps with STM. Tightness is present in L trunk and rotators; but abdominal mobility has improved. Pt not being adherent to DR protection with transfers; therefore handout review needed. Physical Therapy Plan Frequency and Duration Frequency of Treatment 1x/Week Plan of Care Start Date 02/27/23 Plan of Care End Date 08/27/23 Next Visit Focus/Plan Next Note Type Treatment Note Next Visit Plan Review if needed proper transfers cuing for TA tightening and breathwork. Educ in functl acitivites to lessen core abdominal pressure (breathwork). Can start with TM exercise to progress towards return to ex. Sacral balancing as needed (in position of D&C). Teach proper proper deep breathing. Normalize abdominal soft tissue (bladder) mobility (R trunk rotators are tight), Educate in proper hydration norms, BM massage and proper bowel care for lessening of onset of lower abdominal/PF/ LBP. Education: in proper Kegel without use of substitute muscles Biofeedback assessment/ training with vaginal, rectal, or surface sensor(s). Core stabilization (for DR protection, ?K-taping for DR) Discuss & educate in PF stabilization with proper abdominal pressure system; PF and L hip IR/AD strengthening, improve hip ER and trunk R SB mobility.
--- NOTE | 2023-05-26 11:33 | PT.OTN ---
Current Diagnoses Other chronic pain (05/26/23) Constipation, unspecified (05/26/23) Low back pain, unspecified (05/26/23) Separation of muscle (nontraumatic), unspecified site (05/26/23) Stress incontinence (female) (male) (05/26/23) Other specified conditions associated with female genital organs and menstrual cycle (05/26/23) Pelvic and perineal pain (05/26/23) Physical Therapy Treatment Note PT-OP-A Visit Information Start: 02/27/23 07:56 Freq: Status: Active Protocol: Document 05/26/23 10:31 LRN (Rec: 05/26/23 11:20 LRN [id number]) Out-Patient Physical Therapy Visit Information Visit Information Visit Type Treatment Note Visit Start Time 10:31 Visit Stop Time 11:10 Total Visit Minutes 39 Visit Number 8 Evaluation Information Evaluation Date 02/27/23 Precautions Precautions D&E after miscarriage 04/2022, Depression, MADISON's. PT-OP-B Current Condition Start: 02/27/23 07:56 Freq: Status: Active Protocol: Document 02/27/23 08:00 LRN (Rec: 02/27/23 08:55 LRN [id number]) Current Condition History of Current Condition Onset Date 04/2022 Current Complaints Pelvic pain History of Current Condition Pelvic pain onset after miscarriage of 17 wk old fetus . Pt underwent D&E in April 2022 (pt reported fetus was 11 days prior to miscarriage). She reports heavy bleeding after D&E for a month, then noticed a lot of lower trunk pain. She states 2 blood vessels were found to be dilated more than normal, then 2 months later found vessels still enlarged. Prior to had pelvic pain but they it was thought to be due to endometriosis, but had no proof. She has now been diagnosed with pelvic congestion by [facility] and was referred to to get ovarian veins embolized . Pt has chosen to not do surgery because she doesn't feel she has enough pain to merit surgery. She would rather try physical therapy first to see if it she can avoid surgery. Per intake form and pt report of PMH: Varicose veins, pelvic congestion. MADISON's thought due to allergies, 1-2 every 2 weeks. Future Testing and Treatments Planned Samantha Jacques next visit May ~ or . Developmental History Developmental History Pt reports has also been diagnosed with IBS and has had PF pain history. States after first had start of pelvic pain. First born in 2015 w/o complications and no onset of incontinence. She reports bad UTI in 2020, resulting in onset of pressure and discomfort. States she has been found to have blood in urine by Dr. Ricketts, but urethra scope found everything to be okay. She is still having microbleeding that is thought to be due to microbleeding from pelvic congestion. Pt used to exercise a lot, but since miscarriage hasn't. Found pain problem due to exercise, after exercise would experience a lot of pain. Wants to run again. Used to run 3K's after 1st . After stopped, but now jogs/walks on TM, does ALYSSA exer, Pilates and yoga at home workouts. Treatment Goals Patient/Caregiver Goals Pt goal with therapy is to relieve pelvic pain to avoid surgery. 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 PT-OP-C Subjective Start: 02/27/23 07:56 Freq: Status: Active Protocol: Document 05/26/23 10:31 LRN (Rec: 05/26/23 11:20 LRN [id number]) OP-PT Subjective Patient Comments Patient Comments A little cramping/fullness on the L side. Menstrating, feeling tight and full on L side and had sharp pain in the L side and did ex to help decrease the sharp pain or feeling of fullness. Started a new fiber supplement and helping to get back to regular . Thinks maybe had too much dairy. Sometimes gluten bothers her. PT-OP-I Pelvic Floor Start: 02/27/23 07:56 Freq: Status: Active Protocol: Document 02/27/23 08:00 LRN (Rec: 02/27/23 08:55 LRN [id number]) Pelvic Floor Assessment Urine Pelvic Floor Surgery No Urinary Symptoms Pain Leakage Size Small Leakage Cause Cough,Sneeze Pads Used In 24 Hours 1-2 Urine Pad Type Panty Liner Bowel Bowel Symptoms Constipation Other Bowel Symptoms Diarrhea Bowel Movement Frequency Usually daily, sometimes every other day. [place] Stool Chart Comments Cycles between Constipation & Diarrhea Prolapse Prolapse Comments Bulge in area of rectum (6 of PF clock), that was spongy, and no tenderness. Not consistent with feeling of rectocele. Contraction Ability Manual Muscle Testing Left 1 Manual Muscle Testing Right 1 Manual Muscle Testing Anterior 1 Manual Muscle Testing Posterior 3 Muscle Endurance (Seconds) 10 Number of Quick Contractions In 10 3 Seconds Comments Pelvic Floor Comments Pt PF contractions are sluggish. Pt reports PF pain with menstration and occasionally with exercise. Pt lately finds exercise helps decrease pain. Pt PF pain is worse if not regular with bowel movements. PT-OP-J Posture/Palpation/Skin Start: 02/27/23 07:56 Freq: Status: Active Protocol: Document 04/24/23 09:38 LRN (Rec: 04/24/23 10:25 LRN [id number]) Palpation Assessment Location Sacrum Palpation Location Sacrum Palpation Details Decreased mobility of R PA of sacral sulcus, Shear to the L , R PA of SIMIN & ischial tub Abdomen Palpation Location Abdomen Palpation Details Doming with head lift in lower abdomen. PT-OP-K Range of Motion Start: 02/27/23 07:56 Freq: Status: Active Protocol: Document 02/27/23 08:00 LRN (Rec: 02/27/23 08:55 LRN [id number]) Lumbar Spine Range of Motion Lumbar Spine Active Degrees Testing Position Standing Flexion 115 Extension 32 Rotation Left 45 Rotation Right 40 Lateral Flexion Left 23 Lateral Flexion Right 12 Comments Trunk AROM: Flexion is 115 deg?s with 70 deg?s hip flexion, Trunk extension is 32 deg?s with 5 deg?s hip extension. 115/70 32/5 Hip Goniometric Range of Motion Hip Right Passive Testing Position Supine Internal Rotation 55 External Rotation 50 Left Passive Testing Position Supine Internal Rotation 60 External Rotation 40 Comments Visible decreased active hip IR in sitting. PT-OP-M Strength Start: 02/27/23 07:56 Freq: Status: Active Protocol: Document 02/27/23 08:00 LRN (Rec: 02/27/23 08:55 LRN [id number]) Trunk Strength Trunk Manual Muscle Testing Core Stabilization Decreased core stability with lift of R LE hip flex., L hip AD Hip Strength Hip Manual Muscle Testing Right Flexion (L2) 5 Normal Extension (S1) 5 Normal Abduction 5 Normal Adduction 5 Normal External Rotation 5 Normal Internal Rotation 5 Normal Left Flexion (L2) 5 Normal Extension (S1) 5 Normal Abduction 5 Normal Adduction 3 Fair External Rotation 5 Normal Internal Rotation 5 Normal PT-OP-Q Treatments Start: 02/27/23 07:56 Freq: Status: Active Protocol: Document 05/26/23 10:31 LRN (Rec: 05/26/23 11:20 LRN [id number]) Therapeutic Exercises Other Exercises Transfer training w/breathwork Other Exercise Name sit<>supine/Breath/TA training Reps/Minutes 3' Comments Much cuing as reminder to Tighten TA before & during transfers. Manual Therapy Treatment Soft Tissue Mobilization Abdomen Body Location Lower abdomen Mobilization Type Myofascial Release Body Position Hooklying Comments Abdomen mob to R trunk rotators w/restriction at lateral lower ribs & L trunk rot at ASIS. Abdomen mob with knee rolls to L. Jesus Uterus location for distraction and rot. Region of Urachus (rot), bladder (R lateral glide and R rot), uterus (distraction and opp bladder rot, mostly R rot & L side sidebent right). Lateral trunk stretch to left. PT-OP-T Assessment and Plan Start: 02/27/23 07:56 Freq: Status: Active Protocol: Document 05/26/23 10:31 LRN (Rec: 05/26/23 11:20 N [id number]) Physical Therapy Assessment Goals Four Impairment Diastasis Rectus causing core instability Impairment Initial Assessment: Umbilicus 4 above: Xiphoid Process: Closed Umbilicus 3 above: 2 finger widths Umbilicus 2 above: 2 finger widths Umbilicus 1 above: 2 finger widths Umbilicus Umbilicus: 1 below: 1 finger widths Umbilicus: 2 below: 1 finger widths Umbilicus: 3 below: 1 finger widths Umbilicus: 4 below: Pubic Symphysis closed Short Term Goal (STG) Pt will be educated in best practice to minimize DR with transfers using sheet/towel method. STG Duration 03/20/23 (04/07/23: MET GOAL) Obstetrician Goal (LTG) Decrease DR, greater expected decrease to occur in > 6 months due to post hormonal changes. LTG Duration 08/27/23 Three Impairment Decreased function Impairment Lower abdominal/pelvic floor/ LBP with lifting her child Limited with exercise due to onset of lower abdominal/LB/ Pelvic pain. Short Term Goal (STG) Pt will be educated in proper sitting/standing posture and educated in proper body mechanics for ADLs and exercise. STG Duration 03/27/23 (04/17/23: MET GOAL) Obstetrician Goal (LTG) Pt educated in proper transfers and functional mobility to lessen core abdominal pressure with pt able to return to modified exercise and functional activities with minimal onset of lower abdominal/PF/LBP. 04/24/23: Pt educated in proper transfers with proper breathwork to to lessen core abdominal pressure. 05/21/23: Review with handout issued for log roll transfer to protect DRRoby LTG Duration 06/28/23 progressed 05/21/23 (need educ in functl acitivites) Two Impairment Lower abdominal, PF, and LBP rated 1-2/10. Short Term Goal (STG) Pt will be educated in self care pain/inflammation management with cold pack and RICE technique. STG Duration 03/13/23 (04/17/23: MET GOAL ) Custodial Goal (LTG) Pt will be educated in proper hydration norms, BM massage and proper bowel care with lessening of onset of lower abdominal/PF/LBP to minimal or pt tolerable level. LTG Duration 05/10/23 One Impairment Pt lacks self care HEP. Short Term Goal (STG) Pt will be independent in appropriate self care & hip stretches. 04/17/23: I/S pt in hip ER stretch (Fig 4) STG Duration 05/29/23 progressed 04/17/23 Obstetrician Goal (LTG) Pt will be independent in appropriate PF (to decrease urinary leakage) & core strengthening ex's to improve posture of rib cage over hips. 05/21/23: HEP: TA strengthening 4pt & sidelie, instructions can be done in sit/stand. LTG Duration 05/29/23 progressed 05/21/23 Assessment Summary Assessment Pt had good release in abdomen with improved mobility on L lateral trunk. Urinary leakage same. ABdominal distraction needed for LBP. Physical Therapy Plan Frequency and Duration Frequency of Treatment 1x/Week Plan of Care Start Date 02/27/23 Plan of Care End Date 08/27/23 Next Visit Focus/Plan Next Note Type Treatment Note Next Visit Plan Add: Distraction of abdomen, standing. Teach proper proper deep breathing. Can start with TM exercise to progress towards return to ex, f/b decr'd Urinary Leakage and DRRoby Monitor for proper transfers cuing for TA tightening and breathwork. STG #3: Educ in functl acitivites to lessen core abdominal pressure (breathwork ). Sacral balancing as needed (in position of D&C). LTG #2: Educate in proper hydration norms, BM massage and proper bowel care for lessening of onset of lower abdominal/PF/LBP. Education: in proper Kegel without use of substitute muscles Normalize abdominal soft tissue (bladder) mobility (R trunk rotators are tight), Biofeedback assessment/ training with vaginal, rectal, or surface sensor(s). Core stabilization (for DR protection, ?K-taping for DR) Discuss & educate in PF stabilization with proper abdominal pressure system; PF and L hip IR/AD strengthening, improve hip ER and trunk R SB mobility.
--- NOTE | 2023-06-04 14:38 | PT.OTN ---
Current Diagnoses Other chronic pain (06/04/23) Constipation, unspecified (06/04/23) Low back pain, unspecified (06/04/23) Separation of muscle (nontraumatic), unspecified site (06/04/23) Stress incontinence (female) (male) (06/04/23) Other specified conditions associated with female genital organs and menstrual cycle (06/04/23) Pelvic and perineal pain (06/04/23) Physical Therapy Treatment Note PT-OP-A Visit Information Start: 02/27/23 07:56 Freq: Status: Active Protocol: Document 06/04/23 10:34 LRN (Rec: 06/04/23 12:21 LRN [id number]) Out-Patient Physical Therapy Visit Information Visit Information Visit Type Treatment Note Visit Start Time 10:34 Visit Stop Time 11:15 Total Visit Minutes 41 Visit Number 9 Evaluation Information Evaluation Date 02/27/23 Precautions Precautions D&E after miscarriage 04/2022, Depression, MADISON's. PT-OP-B Current Condition Start: 02/27/23 07:56 Freq: Status: Active Protocol: Document 02/27/23 08:00 LRN (Rec: 02/27/23 08:55 LRN [id number]) Current Condition History of Current Condition Onset Date 04/2022 Current Complaints Pelvic pain History of Current Condition Pelvic pain onset after miscarriage of 17 wk old fetus . Pt underwent D&E in April 2022 (pt reported fetus was 11 days prior to miscarriage). She reports heavy bleeding after D&E for a month, then noticed a lot of lower trunk pain. She states 2 blood vessels were found to be dilated more than normal, then 2 months later found vessels still enlarged. Prior to had pelvic pain but they it was thought to be due to endometriosis, but had no proof. She has now been diagnosed with pelvic congestion by [facility] and was referred to to get ovarian veins embolized . Pt has chosen to not do surgery because she doesn't feel she has enough pain to merit surgery. She would rather try physical therapy first to see if it she can avoid surgery. Per intake form and pt report of PMH: Varicose veins, pelvic congestion. MADISON's thought due to allergies, 1-2 every 2 weeks. Future Testing and Treatments Planned Samantha Jacques next visit May ~ or . Developmental History Developmental History Pt reports has also been diagnosed with IBS and has had PF pain history. States after first had start of pelvic pain. First born in 2015 w/o complications and no onset of incontinence. She reports bad UTI in 2020, resulting in onset of pressure and discomfort. States she has been found to have blood in urine by Dr. Ricketts, but urethra scope found everything to be okay. She is still having microbleeding that is thought to be due to microbleeding from pelvic congestion. Pt used to exercise a lot, but since miscarriage hasn't. Found pain problem due to exercise, after exercise would experience a lot of pain. Wants to run again. Used to run 3K's after 1st . After stopped, but now jogs/walks on TM, does ALYSSA exer, Pilates and yoga at home workouts. Treatment Goals Patient/Caregiver Goals Pt goal with therapy is to relieve pelvic pain to avoid surgery. 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 PT-OP-C Subjective Start: 02/27/23 07:56 Freq: Status: Active Protocol: Document 06/04/23 10:34 LRN (Rec: 06/04/23 12:21 LRN [id number]) OP-PT Subjective Patient Comments Patient Comments On period, crampy and bloated. Didn't have to take medication for cramps. Thinks the cramping with period is s50% less. Cramping with ovulation is not as intense as in the past. Week heading into the period was bad, but now only had 1 day of cramping . PT-OP-I Pelvic Floor Start: 02/27/23 07:56 Freq: Status: Active Protocol: Document 02/27/23 08:00 LRN (Rec: 02/27/23 08:55 LRN [id number]) Pelvic Floor Assessment Urine Pelvic Floor Surgery No Urinary Symptoms Pain Leakage Size Small Leakage Cause Cough,Sneeze Pads Used In 24 Hours 1-2 Urine Pad Type Panty Liner Bowel Bowel Symptoms Constipation Other Bowel Symptoms Diarrhea Bowel Movement Frequency Usually daily, sometimes every other day. [place] Stool Chart Comments Cycles between Constipation & Diarrhea Prolapse Prolapse Comments Bulge in area of rectum (6 of PF clock), that was spongy, and no tenderness. Not consistent with feeling of rectocele. Contraction Ability Manual Muscle Testing Left 1 Manual Muscle Testing Right 1 Manual Muscle Testing Anterior 1 Manual Muscle Testing Posterior 3 Muscle Endurance (Seconds) 10 Number of Quick Contractions In 10 3 Seconds Comments Pelvic Floor Comments Pt PF contractions are sluggish. Pt reports PF pain with menstration and occasionally with exercise. Pt lately finds exercise helps decrease pain. Pt PF pain is worse if not regular with bowel movements. PT-OP-J Posture/Palpation/Skin Start: 02/27/23 07:56 Freq: Status: Active Protocol: Document 04/24/23 09:38 LRN (Rec: 04/24/23 10:25 LRN [id number]) Palpation Assessment Location Sacrum Palpation Location Sacrum Palpation Details Decreased mobility of R PA of sacral sulcus, Shear to the L , R PA of SIMIN & ischial tub Abdomen Palpation Location Abdomen Palpation Details Doming with head lift in lower abdomen. PT-OP-K Range of Motion Start: 02/27/23 07:56 Freq: Status: Active Protocol: Document 02/27/23 08:00 LRN (Rec: 02/27/23 08:55 LRN [id number]) Lumbar Spine Range of Motion Lumbar Spine Active Degrees Testing Position Standing Flexion 115 Extension 32 Rotation Left 45 Rotation Right 40 Lateral Flexion Left 23 Lateral Flexion Right 12 Comments Trunk AROM: Flexion is 115 deg?s with 70 deg?s hip flexion, Trunk extension is 32 deg?s with 5 deg?s hip extension. 115/70 32/5 Hip Goniometric Range of Motion Hip Right Passive Testing Position Supine Internal Rotation 55 External Rotation 50 Left Passive Testing Position Supine Internal Rotation 60 External Rotation 40 Comments Visible decreased active hip IR in sitting. PT-OP-M Strength Start: 02/27/23 07:56 Freq: Status: Active Protocol: Document 02/27/23 08:00 LRN (Rec: 02/27/23 08:55 LRN [id number]) Trunk Strength Trunk Manual Muscle Testing Core Stabilization Decreased core stability with lift of R LE hip flex., L hip AD Hip Strength Hip Manual Muscle Testing Right Flexion (L2) 5 Normal Extension (S1) 5 Normal Abduction 5 Normal Adduction 5 Normal External Rotation 5 Normal Internal Rotation 5 Normal Left Flexion (L2) 5 Normal Extension (S1) 5 Normal Abduction 5 Normal Adduction 3 Fair External Rotation 5 Normal Internal Rotation 5 Normal PT-OP-Q Treatments Start: 02/27/23 07:56 Freq: Status: Active Protocol: Document 06/04/23 10:34 LRN (Rec: 06/04/23 12:21 LRN [id number]) Therapeutic Exercises Supine Exercises Deep Breathing Supine Exercise Name Deep breathing training - abdomen and slowness of breath Equipment Used self hand placement on abdomen and chest. Reps/Minutes 2' Comments Cuing for lower ribs/abdomen expansion/contraction with breath Manual Therapy Treatment Soft Tissue Mobilization ILU massage Body Location Abdomen-ILU massage Intensity/Depth Moderate Body Position Supine Comments Pt performed on self after PT massage. Abdomen Body Location Lower abdomen Mobilization Type Myofascial Release Body Position Hooklying Comments Abdomen mob to R trunk rotators w/restriction at lateral lower ribs & L trunk rot at ASIS. Abdomen mob with knee rolls to L. Jesus Uterus location for distraction and rot. Region of Urachus (rot), bladder (R lateral glide and R rot), uterus (distraction and opp bladder rot, mostly R rot & L side sidebent right). Lateral trunk stretch to left. Self-Care/Home Management Treatment Education Other Education Pt educated in recommended hydration levels of 1/2 body wgt in ounces. PT-OP-T Assessment and Plan Start: 02/27/23 07:56 Freq: Status: Active Protocol: Document 06/04/23 10:34 LRN (Rec: 06/04/23 12:21 LRN [id number]) Physical Therapy Assessment Goals Four Impairment Diastasis Rectus causing core instability Impairment Initial Assessment: Umbilicus 4 above: Xiphoid Process: Closed Umbilicus 3 above: 2 finger widths Umbilicus 2 above: 2 finger widths Umbilicus 1 above: 2 finger widths Umbilicus Umbilicus: 1 below: 1 finger widths Umbilicus: 2 below: 1 finger widths Umbilicus: 3 below: 1 finger widths Umbilicus: 4 below: Pubic Symphysis closed Short Term Goal (STG) Pt will be educated in best practice to minimize DR with transfers using sheet/towel method. STG Duration 03/20/23 (04/07/23: MET GOAL) Mcfp Goal (LTG) Decrease DR, greater expected decrease to occur in > 6 months due to post hormonal changes. LTG Duration 08/27/23 Three Impairment Decreased function Impairment Lower abdominal/pelvic floor/ LBP with lifting her child Limited with exercise due to onset of lower abdominal/LB/ Pelvic pain. Short Term Goal (STG) Pt will be educated in proper sitting/standing posture and educated in proper body mechanics for ADLs and exercise. STG Duration 03/27/23 (04/17/23: MET GOAL) Evp Managing Director Goal (LTG) Pt educated in proper transfers and functional mobility to lessen core abdominal pressure with pt able to return to modified exercise and functional activities with minimal onset of lower abdominal/PF/LBP. 04/24/23: Pt educated in proper transfers with proper breathwork to to lessen core abdominal pressure. 05/21/23: Review with handout issued for log roll transfer to protect DR. LTG Duration 06/28/23 progressed 05/21/23 (need core press mgmt w/functl activites/ex) Two Impairment Lower abdominal, PF, and LBP rated 1-2/10. Short Term Goal (STG) Pt will be educated in self care pain/inflammation management with cold pack and RICE technique. STG Duration 03/13/23 (04/17/23: MET GOAL ) Evp Managing Director Goal (LTG) Pt will be educated in proper hydration norms, BM massage and proper bowel care with lessening of onset of lower abdominal/PF/LBP to minimal or pt tolerable level. 06/04/23: Pt educated in proper hydration norm, & BM massage. LTG Duration 05/10/23 progressed 06/04/23 One Impairment Pt lacks self care HEP. Short Term Goal (STG) Pt will be independent in appropriate self care & hip stretches. 04/17/23: I/S pt in hip ER stretch (Fig 4) STG Duration 05/29/23 progressed 04/17/23 Mcfp Goal (LTG) Pt will be independent in appropriate PF (to decrease urinary leakage) & core strengthening ex's to improve posture of rib cage over hips. 05/21/23: HEP: TA strengthening 4pt & sidelie, instructions can be done in sit/stand. LTG Duration 05/29/23 progressed 05/21/23 Assessment Summary Assessment Pt getting better and coordinating breathwork with transfers. Deep breathing properly done after a couple physical cuing to move through abdomen first. Pt is ready to add training with ex in gym to limit core pressure and reduce abdominal pain with ex. Physical Therapy Plan Frequency and Duration Frequency of Treatment 1x/Week Plan of Care Start Date 02/27/23 Plan of Care End Date 08/27/23 Next Visit Focus/Plan Next Note Type Progress Note Next Visit Plan Assess response to Distraction of abdomen and for proper deep breathing. Add TM exercise to progress towards return to ex w/proper core pressure management, f/b decr'd Urinary Leakage, and DR (add rotation ex). STG #3: Educ in functl acitivites to lessen core abdominal pressure (breathwork ). Educate in PF stabilization with proper abdominal pressure system; (Monitor for proper transfers cuing for TA tightening and breathwork) LTG #2: Educate in proper bowel care for lessening of onset of lower abdominal/PF/ LBP. Education: in proper Kegel without use of substitute muscles. PF and L hip IR/AD strengthening, improve hip ER and trunk R SB mobility. Core stabilization (for DR protection, ?K-taping for DR) POC: Normalize abdominal soft tissue (bladder) mobility, decr R trunk rotators tightness, Biofeedback assessment/ training with vaginal electrode. Sacral balancing as needed (in position of D&C).
--- NOTE | 2023-06-12 10:29 | PT.OTN ---
Current Diagnoses Other chronic pain (06/12/23) Constipation, unspecified (06/12/23) Low back pain, unspecified (06/12/23) Separation of muscle (nontraumatic), unspecified site (06/12/23) Stress incontinence (female) (male) (06/12/23) Other specified conditions associated with female genital organs and menstrual cycle (06/12/23) Pelvic and perineal pain (06/12/23) Physical Therapy Treatment Note PT-OP-A Visit Information Start: 02/27/23 07:56 Freq: Status: Active Protocol: Document 06/12/23 08:46 LRN (Rec: 06/12/23 10:29 LRN [id number]) Out-Patient Physical Therapy Visit Information Visit Information Visit Type Treatment Note Visit Start Time 08:46 Visit Stop Time 09:24 Total Visit Minutes 38 Visit Number 10 Evaluation Information Evaluation Date 02/27/23 Precautions Precautions D&E after miscarriage 04/2022, Depression, MADISON's. PT-OP-B Current Condition Start: 02/27/23 07:56 Freq: Status: Active Protocol: Document 02/27/23 08:00 LRN (Rec: 02/27/23 08:55 LRN [id number]) Current Condition History of Current Condition Onset Date 04/2022 Current Complaints Pelvic pain History of Current Condition Pelvic pain onset after miscarriage of 17 wk old fetus . Pt underwent D&E in April 2022 (pt reported fetus was 11 days prior to miscarriage). She reports heavy bleeding after D&E for a month, then noticed a lot of lower trunk pain. She states 2 blood vessels were found to be dilated more than normal, then 2 months later found vessels still enlarged. Prior to had pelvic pain but they it was thought to be due to endometriosis, but had no proof. She has now been diagnosed with pelvic congestion by [facility] and was referred to to get ovarian veins embolized . Pt has chosen to not do surgery because she doesn't feel she has enough pain to merit surgery. She would rather try physical therapy first to see if it she can avoid surgery. Per intake form and pt report of PMH: Varicose veins, pelvic congestion. MADISON's thought due to allergies, 1-2 every 2 weeks. Future Testing and Treatments Planned Samantha Jacques next visit May ~ or . Developmental History Developmental History Pt reports has also been diagnosed with IBS and has had PF pain history. States after first had start of pelvic pain. First born in 2015 w/o complications and no onset of incontinence. She reports bad UTI in 2020, resulting in onset of pressure and discomfort. States she has been found to have blood in urine by Dr. Ricketts, but urethra scope found everything to be okay. She is still having microbleeding that is thought to be due to microbleeding from pelvic congestion. Pt used to exercise a lot, but since miscarriage hasn't. Found pain problem due to exercise, after exercise would experience a lot of pain. Wants to run again. Used to run 3K's after 1st . After stopped, but now jogs/walks on TM, does ALYSSA exer, Pilates and yoga at home workouts. Treatment Goals Patient/Caregiver Goals Pt goal with therapy is to relieve pelvic pain to avoid surgery. 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 PT-OP-C Subjective Start: 02/27/23 07:56 Freq: Status: Active Protocol: Document 06/12/23 08:46 LRN (Rec: 06/12/23 10:29 LRN [id number]) OP-PT Subjective Patient Comments Patient Comments PT reports not a lot of cramping but tightness, shooting pain wrapping around to the front at the hip. Has been doing cardio ex but hasn' t been consistent. Last time ran 5k was before until 05/16. Every once in awhile gets pelvic congestion , the heaviness in the pelvis with sitting in car and getting up, or sit<>stand and feels a cramp in the groin bilaterally. Sometimes feels heavy in the morning and begins to feel bloated. Occasional urinary leakage after 1st child but was able to resume running without leakage, but did feel heaviness sometimes. PT-OP-I Pelvic Floor Start: 02/27/23 07:56 Freq: Status: Active Protocol: Document 02/27/23 08:00 LRN (Rec: 02/27/23 08:55 LRN [id number]) Pelvic Floor Assessment Urine Pelvic Floor Surgery No Urinary Symptoms Pain Leakage Size Small Leakage Cause Cough,Sneeze Pads Used In 24 Hours 1-2 Urine Pad Type Panty Liner Bowel Bowel Symptoms Constipation Other Bowel Symptoms Diarrhea Bowel Movement Frequency Usually daily, sometimes every other day. Trimble Stool Chart Comments Cycles between Constipation & Diarrhea Prolapse Prolapse Comments Bulge in area of rectum (6 of PF clock), that was spongy, and no tenderness. Not consistent with feeling of rectocele. Contraction Ability Manual Muscle Testing Left 1 Manual Muscle Testing Right 1 Manual Muscle Testing Anterior 1 Manual Muscle Testing Posterior 3 Muscle Endurance (Seconds) 10 Number of Quick Contractions In 10 3 Seconds Comments Pelvic Floor Comments Pt PF contractions are sluggish. Pt reports PF pain with menstration and occasionally with exercise. Pt lately finds exercise helps decrease pain. Pt PF pain is worse if not regular with bowel movements. PT-OP-J Posture/Palpation/Skin Start: 02/27/23 07:56 Freq: Status: Active Protocol: Document 04/24/23 09:38 LRN (Rec: 04/24/23 10:25 LRN [id number]) Palpation Assessment Location Sacrum Palpation Location Sacrum Palpation Details Decreased mobility of R PA of sacral sulcus, Shear to the L , R PA of SIMIN & ischial tub Abdomen Palpation Location Abdomen Palpation Details Doming with head lift in lower abdomen. PT-OP-K Range of Motion Start: 02/27/23 07:56 Freq: Status: Active Protocol: Document 02/27/23 08:00 LRN (Rec: 02/27/23 08:55 LRN [id number]) Lumbar Spine Range of Motion Lumbar Spine Active Degrees Testing Position Standing Flexion 115 Extension 32 Rotation Left 45 Rotation Right 40 Lateral Flexion Left 23 Lateral Flexion Right 12 Comments Trunk AROM: Flexion is 115 deg?s with 70 deg?s hip flexion, Trunk extension is 32 deg?s with 5 deg?s hip extension. 115/70 32/5 Hip Goniometric Range of Motion Hip Right Passive Testing Position Supine Internal Rotation 55 External Rotation 50 Left Passive Testing Position Supine Internal Rotation 60 External Rotation 40 Comments Visible decreased active hip IR in sitting. PT-OP-M Strength Start: 02/27/23 07:56 Freq: Status: Active Protocol: Document 02/27/23 08:00 LRN (Rec: 02/27/23 08:55 LRN [id number]) Trunk Strength Trunk Manual Muscle Testing Core Stabilization Decreased core stability with lift of R LE hip flex., L hip AD Hip Strength Hip Manual Muscle Testing Right Flexion (L2) 5 Normal Extension (S1) 5 Normal Abduction 5 Normal Adduction 5 Normal External Rotation 5 Normal Internal Rotation 5 Normal Left Flexion (L2) 5 Normal Extension (S1) 5 Normal Abduction 5 Normal Adduction 3 Fair External Rotation 5 Normal Internal Rotation 5 Normal PT-OP-Q Treatments Start: 02/27/23 07:56 Freq: Status: Active Protocol: Document 06/12/23 08:46 LRN (Rec: 06/12/23 10:29 LRN [id number]) Cardio Equipment Treadmill Duration (Minutes) 10 Speed 2.2 Therapeutic Exercises Supine Exercises Trunk rot/neck RSB-ext Supine Exercise Name Trunk rot (L>R knee rolls)/ neck RSB-slight R rot Side bilateral Reps/Minutes 10 SH x 5 Comments Extra time taken to determine max alex position, cuing for head turn. Fig 4 stretch Supine Exercise Name Fig 4 stretch Side bilateral Reps/Minutes 4' Comments Cuing to cross ankle over knee for hold. Sidelying Exercises Open book stretch Sidelying Exercise Name Open Book stretch Side bilateral Reps/Minutes 10 SH x 5 Other Exercises Transfer training w/breathwork Other Exercise Name sit<>supine/Breath/TA review Reps/Minutes 2' Comments Pt performing automatically unless suddenly needing to help DA @ home Manual Therapy Treatment Soft Tissue Mobilization ILU massage Body Location Abdomen-ILU massage Intensity/Depth Moderate Body Position Supine Comments Pt performed on self after PT massage. Abdomen Body Location Lower abdomen Mobilization Type Myofascial Release Body Position Hooklie and 4 pt Comments Abdomen mob to L>R trunk rotators w/restriction at lateral lower ribs & L trunk rot at ASIS. Abdomen mob with knee rolls to L. Lateral trunk stretch to R side in standing 4pt. Deferred today: Region of Urachus (rot), bladder (R lateral glide and R rot), uterus (distraction and opp bladder rot, mostly R rot & L side sidebent right). 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 Pt showed how in supine she can perform self abdominal cephalic lift for pelvic congestion relief. PT-OP-T Assessment and Plan Start: 02/27/23 07:56 Freq: Status: Active Protocol: Document 06/12/23 08:46 LRN (Rec: 06/12/23 10:29 LRN [id number]) Physical Therapy Assessment Goals Four Impairment Diastasis Rectus causing core instability Impairment Initial Assessment: Umbilicus 4 above: Xiphoid Process: Closed Umbilicus 3 above: 2 finger widths Umbilicus 2 above: 2 finger widths Umbilicus 1 above: 2 finger widths Umbilicus Umbilicus: 1 below: 1 finger widths Umbilicus: 2 below: 1 finger widths Umbilicus: 3 below: 1 finger widths Umbilicus: 4 below: Pubic Symphysis closed Short Term Goal (STG) Pt will be educated in best practice to minimize DR with transfers using sheet/towel method. STG Duration 03/20/23 (04/07/23: MET GOAL) Driver Service Technician Goal (LTG) Decrease DR, greater expected decrease to occur in > 6 months due to post hormonal changes. LTG Duration 08/27/23 Three Impairment Decreased function Impairment Lower abdominal/pelvic floor/ LBP with lifting her child Limited with exercise due to onset of lower abdominal/LB/ Pelvic pain. Short Term Goal (STG) Pt will be educated in proper sitting/standing posture and educated in proper body mechanics for ADLs and exercise. STG Duration 03/27/23 (04/17/23: MET GOAL) Driver Service Technician Goal (LTG) Pt educated in proper transfers and functional mobility to lessen core abdominal pressure with pt able to return to modified exercise and functional activities with minimal onset of lower abdominal/PF/LBP. 04/24/23: Pt educated in proper transfers with proper breathwork to to lessen core abdominal pressure. 05/21/23: Review with handout issued for log roll transfer to protect DR. 06/12/23: Started TM ex. Reviewed proper transfers cuing for TA tightening and breathwork, pt mostly performing correctly unless emergent need to help her child. LTG Duration 06/28/23 progressed 06/12/23 (need core press mgmt w/functl activites) Two Impairment Lower abdominal, PF, and LBP rated 1-2/10. Short Term Goal (STG) Pt will be educated in self care pain/inflammation management with cold pack and RICE technique. STG Duration 03/13/23 (04/17/23: MET GOAL ) Driver Service Technician Goal (LTG) Pt will be educated in proper hydration norms, BM massage and proper bowel care with lessening of onset of lower abdominal/PF/LBP to minimal or pt tolerable level. 06/04/23: Pt educated in proper hydration norm, & BM massage. 06/12/23: STM reducing abdominal cramping to occasional. LTG Duration 05/10/23 progressed 06/12/23 One Impairment Pt lacks self care HEP. Short Term Goal (STG) Pt will be independent in appropriate self care & hip stretches. 04/17/23: I/S pt in hip ER stretch (Fig 4) STG Duration 05/29/23 progressed 04/17/23 Detention Goal (LTG) Pt will be independent in appropriate PF (to decrease urinary leakage) & core strengthening ex's to improve posture of rib cage over hips. 05/21/23: HEP: TA strengthening 4pt & sidelie, instructions can be done in sit/stand. 06/12/23: I/S pt in trunk rot. LTG Duration 05/29/23 progressed 06/12/23 Progress Towards Goals Progress Comments Decreasing onset of abdominal cramping. Pt demonstrating proper abdominal pressure management with transfers most of the time. Progressed HEP. Assessment Summary Assessment Pt reports after last session and manual STM she didn't feel crampy all day. Pt able to recall ILU massage without difficulty. Pt report of pelvic congestion every once in awhile. Physical Therapy Plan Frequency and Duration Frequency of Treatment 1x/Week Plan of Care Start Date 02/27/23 Plan of Care End Date 08/27/23 Next Visit Focus/Plan Next Note Type Treatment Note Next Visit Plan Add Eliptical exercise to progress towards return to ex w/proper core pressure management, f/b decr'd Urinary Leakage, and DR (add rotation ex). STG #3: Educ in functl activites to lessen core abdominal pressure (breathwork ). Educate in PF stabilization with proper abdominal pressure system; LTG #2: Educate in proper bowel care for lessening of onset of lower abdominal/PF/ LBP. STG #1: Recheck hip mobility (ER), trunk R SB for improvement. Education: in proper Kegel without use of substitute muscles. PF and L hip IR/AD strengthening, improve hip ER and trunk R SB mobility. Core stabilization (for protection, ?K-taping for DR) POC: Normalize abdominal soft tissue (bladder) mobility, decr R trunk rotators tightness, self care for pelvic congestion. Biofeedback assessment/ training with vaginal electrode. Sacral balancing as needed (in position of D&C).
--- NOTE | 2023-06-25 17:01 | PT.OTN ---
Current Diagnoses Other chronic pain (06/25/23) Constipation, unspecified (06/25/23) Low back pain, unspecified (06/25/23) Separation of muscle (nontraumatic), unspecified site (06/25/23) Stress incontinence (female) (male) (06/25/23) Other specified conditions associated with female genital organs and menstrual cycle (06/25/23) Pelvic and perineal pain (06/25/23) Physical Therapy Treatment Note PT-OP-A Visit Information Start: 02/27/23 07:56 Freq: Status: Active Protocol: Document 06/25/23 08:47 LRN (Rec: 06/25/23 09:33 LRN [id number]) Out-Patient Physical Therapy Visit Information Visit Information Visit Type Treatment Note Visit Start Time 08:47 Visit Stop Time 09:32 Total Visit Minutes 45 Visit Number 11 Evaluation Information Evaluation Date 02/27/23 Precautions Precautions D&E after miscarriage 04/2022, Depression, MADISON's. PT-OP-B Current Condition Start: 02/27/23 07:56 Freq: Status: Active Protocol: Document 02/27/23 08:00 LRN (Rec: 02/27/23 08:55 LRN [id number]) Current Condition History of Current Condition Onset Date 04/2022 Current Complaints Pelvic pain History of Current Condition Pelvic pain onset after miscarriage of 17 wk old fetus . Pt underwent D&E in April 2022 (pt reported fetus was 11 days prior to miscarriage). She reports heavy bleeding after D&E for a month, then noticed a lot of lower trunk pain. She states 2 blood vessels were found to be dilated more than normal, then 2 months later found vessels still enlarged. Prior to had pelvic pain but they it was thought to be due to endometriosis, but had no proof. She has now been diagnosed with pelvic congestion by [facility] and was referred to to get ovarian veins embolized . Pt has chosen to not do surgery because she doesn't feel she has enough pain to merit surgery. She would rather try physical therapy first to see if it she can avoid surgery. Per intake form and pt report of PMH: Varicose veins, pelvic congestion. MADISON's thought due to allergies, 1-2 every 2 weeks. Future Testing and Treatments Planned Samantha Jacques next visit May ~ or . Developmental History Developmental History Pt reports has also been diagnosed with IBS and has had PF pain history. States after first had start of pelvic pain. First born in 2015 w/o complications and no onset of incontinence. She reports bad UTI in 2020, resulting in onset of pressure and discomfort. States she has been found to have blood in urine by Dr. Ricketts, but urethra scope found everything to be okay. She is still having microbleeding that is thought to be due to microbleeding from pelvic congestion. Pt used to exercise a lot, but since miscarriage hasn't. Found pain problem due to exercise, after exercise would experience a lot of pain. Wants to run again. Used to run 3K's after 1st . After stopped, but now jogs/walks on TM, does ALYSSA exer, Pilates and yoga at home workouts. Treatment Goals Patient/Caregiver Goals Pt goal with therapy is to relieve pelvic pain to avoid surgery. 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 PT-OP-C Subjective Start: 02/27/23 07:56 Freq: Status: Active Protocol: Document 06/25/23 08:47 LRN (Rec: 06/25/23 09:33 LRN [id number]) OP-PT Subjective Patient Comments Patient Comments Pt routine is with cardio/ stairmaster/row/TM and wanting to start lifting. PT-OP-I Pelvic Floor Start: 02/27/23 07:56 Freq: Status: Active Protocol: Document 02/27/23 08:00 LRN (Rec: 02/27/23 08:55 LRN [id number]) Pelvic Floor Assessment Urine Pelvic Floor Surgery No Urinary Symptoms Pain Leakage Size Small Leakage Cause Cough,Sneeze Pads Used In 24 Hours 1-2 Urine Pad Type Panty Liner Bowel Bowel Symptoms Constipation Other Bowel Symptoms Diarrhea Bowel Movement Frequency Usually daily, sometimes every other day. [place] Stool Chart Comments Cycles between Constipation & Diarrhea Prolapse Prolapse Comments Bulge in area of rectum (6 of PF clock), that was spongy, and no tenderness. Not consistent with feeling of rectocele. Contraction Ability Manual Muscle Testing Left 1 Manual Muscle Testing Right 1 Manual Muscle Testing Anterior 1 Manual Muscle Testing Posterior 3 Muscle Endurance (Seconds) 10 Number of Quick Contractions In 10 3 Seconds Comments Pelvic Floor Comments Pt PF contractions are sluggish. Pt reports PF pain with menstration and occasionally with exercise. Pt lately finds exercise helps decrease pain. Pt PF pain is worse if not regular with bowel movements. PT-OP-J Posture/Palpation/Skin Start: 02/27/23 07:56 Freq: Status: Active Protocol: Document 04/24/23 09:38 LRN (Rec: 04/24/23 10:25 LRN [id number]) Palpation Assessment Location Sacrum Palpation Location Sacrum Palpation Details Decreased mobility of R PA of sacral sulcus, Shear to the L , R PA of SIMIN & ischial tub Abdomen Palpation Location Abdomen Palpation Details Doming with head lift in lower abdomen. PT-OP-K Range of Motion Start: 02/27/23 07:56 Freq: Status: Active Protocol: Document 02/27/23 08:00 LRN (Rec: 02/27/23 08:55 LRN [id number]) Lumbar Spine Range of Motion Lumbar Spine Active Degrees Testing Position Standing Flexion 115 Extension 32 Rotation Left 45 Rotation Right 40 Lateral Flexion Left 23 Lateral Flexion Right 12 Comments Trunk AROM: Flexion is 115 deg?s with 70 deg?s hip flexion, Trunk extension is 32 deg?s with 5 deg?s hip extension. 115/70 32/5 Hip Goniometric Range of Motion Hip Right Passive Testing Position Supine Internal Rotation 55 External Rotation 50 Left Passive Testing Position Supine Internal Rotation 60 External Rotation 40 Comments Visible decreased active hip IR in sitting. PT-OP-M Strength Start: 02/27/23 07:56 Freq: Status: Active Protocol: Document 02/27/23 08:00 LRN (Rec: 02/27/23 08:55 LRN [id number]) Trunk Strength Trunk Manual Muscle Testing Core Stabilization Decreased core stability with lift of R LE hip flex., L hip AD Hip Strength Hip Manual Muscle Testing Right Flexion (L2) 5 Normal Extension (S1) 5 Normal Abduction 5 Normal Adduction 5 Normal External Rotation 5 Normal Internal Rotation 5 Normal Left Flexion (L2) 5 Normal Extension (S1) 5 Normal Abduction 5 Normal Adduction 3 Fair External Rotation 5 Normal Internal Rotation 5 Normal PT-OP-Q Treatments Start: 02/27/23 07:56 Freq: Status: Active Protocol: Document 06/25/23 08:47 LRN (Rec: 06/25/23 09:33 LRN [id number]) Cardio Equipment Elliptical Duration (Minutes) 6 Resistance 1' @ lev 1, 2'@ lev 3, 1' @ lev 4, then reverse Other Extra time taken to determine manual interval. Therapeutic Exercises Sidelying Exercises Open book stretch Sidelying Exercise Name Open Book stretch to the right for R QL/rotator stretch. Side bilateral Reps/Minutes 10 SH x 5 to right; 10 SH x 1 to the left Standing Exercises Trunk Rot Standing Exercise Name Trunk Rot Side bilateral Reps/Minutes 8' Comments Cuing for ribs over hips, PPT to minimize lordosis, & coord of breathng Therapeutic Activity Therapeutic Activity Squat trng Name Squat training Reps/Minutes 12' Comments Cuing for posture & breathwork with squat and for PF contraction strengthening. Dowel stick used to teach pt hip hinging for squat. Manual Therapy Treatment Soft Tissue Mobilization R Iliposas Body Location R Iliopsoas Mobilization Type Sustained Pressure,Trigger Point Release Intensity/Depth Moderate Body Position Supine Comments Not able to release R Iliopsoas. Abdomen Body Location Lower abdomen - Bladder R rot. Mobilization Type Myofascial Release Body Position Hooklie and 4 pt Joint Mobilizations R SIJ Joint R SIJ Direction PA of R innominate Grade II Body Position Supine Comments Created pain in L anterior thigh. Self-Care/Home Management Treatment Education Patient Education Home Exercise Program Activities Self-Care/Home Management Activities I/S pt in standing trunk rot strengthening and issued Blue TB. PT-OP-T Assessment and Plan Start: 02/27/23 07:56 Freq: Status: Active Protocol: Document 06/25/23 08:47 LRN (Rec: 06/25/23 09:33 LRN [id number]) Physical Therapy Assessment Goals Four Impairment Diastasis Rectus causing core instability Impairment Initial Assessment: Umbilicus 4 above: Xiphoid Process: Closed Umbilicus 3 above: 2 finger widths Umbilicus 2 above: 2 finger widths Umbilicus 1 above: 2 finger widths Umbilicus Umbilicus: 1 below: 1 finger widths Umbilicus: 2 below: 1 finger widths Umbilicus: 3 below: 1 finger widths Umbilicus: 4 below: Pubic Symphysis closed Short Term Goal (STG) Pt will be educated in best practice to minimize DR with transfers using sheet/towel method. STG Duration 03/20/23 (04/07/23: MET GOAL) Survey Research Analyst Goal (LTG) Decrease DR, greater expected decrease to occur in > 6 months due to post hormonal changes. LTG Duration 08/27/23 Three Impairment Decreased function Impairment Lower abdominal/pelvic floor/ LBP with lifting her child Limited with exercise due to onset of lower abdominal/LB/ Pelvic pain. Short Term Goal (STG) Pt will be educated in proper sitting/standing posture and educated in proper body mechanics for ADLs and exercise. STG Duration 03/27/23 (04/17/23: MET GOAL) Alf Goal (LTG) Pt educated in proper transfers and functional mobility to lessen core abdominal pressure with pt able to return to modified exercise and functional activities with minimal onset of lower abdominal/PF/LBP. 04/24/23: Pt educated in proper transfers with proper breathwork to to lessen core abdominal pressure. 06/25/23: Added Trunk Rot strengthening for DR and core stab. 05/21/23: Review with handout issued for log roll transfer to protect DR. 06/12/23: Started TM ex. Reviewed proper transfers cuing for TA tightening and breathwork, pt mostly performing correctly unless emergent need to help her child. LTG Duration 06/28/23 progressed 06/25/23 (need core press mgmt w/functl activites) Two Impairment Lower abdominal, PF, and LBP rated 1-2/10. Short Term Goal (STG) Pt will be educated in self care pain/inflammation management with cold pack and RICE technique. STG Duration 03/13/23 (04/17/23: MET GOAL ) Survey Research Analyst Goal (LTG) Pt will be educated in proper hydration norms, BM massage and proper bowel care with lessening of onset of lower abdominal/PF/LBP to minimal or pt tolerable level. 06/04/23: Pt educated in proper hydration norm, & BM massage. 06/12/23: STM reducing abdominal cramping to occasional. LTG Duration 05/10/23 progressed 06/12/23 One Impairment Pt lacks self care HEP. Short Term Goal (STG) Pt will be independent in appropriate self care & hip stretches. 04/17/23: I/S pt in hip ER stretch (Fig 4) STG Duration 05/29/23 progressed 04/17/23 Alf Goal (LTG) Pt will be independent in appropriate PF (to decrease urinary leakage) & core strengthening ex's to improve posture of rib cage over hips. 05/21/23: HEP: TA strengthening 4pt & sidelie, instructions can be done in sit/stand. 06/12/23: I/S pt in trunk rot. LTG Duration 05/29/23 progressed 06/12/23 Assessment Summary Assessment Pt appears to have had sharp pain in area of pubic symphysis when waking up in the morning due to positional strain with her pelvis in R rotation. Her pain lasted a day and today she has no pain complaints. The pt has tightness of her R Iliopsoas and QL causing possibly shear of R pelvis anteriorly. She is progressing towards return to exercise with use of eliptical w/o complaints of pain. Physical Therapy Plan Frequency and Duration Frequency of Treatment 1x/Week Plan of Care Start Date 02/27/23 Plan of Care End Date 08/27/23 Next Visit Focus/Plan Next Note Type Treatment Note Next Visit Plan Pt to schedule more 1-3 more appts to complete program. Check DR. Recheck hip mobility (ER), ADD: trunk R SB for improvement (STG #1) . Progress towards return to ex w/proper core pressure management, f/b decr'd Urinary Leakage, Progress DR (add rotation ex) and check for plank tolerance for abdominal doming. STG #3: Educ in functl activites to lessen core abdominal pressure (breathwork ). Educate in PF stabilization with proper abdominal pressure system; LTG #2: Educate in proper bowel care for lessening of onset of lower abdominal/PF/ LBP. Education: in proper Kegel without use of substitute muscles. PF and L hip IR/AD strengthening, improve hip ER and trunk R SB mobility. Core stabilization (for DR protection, ?K-taping for DR) POC: Normalize abdominal soft tissue (bladder) mobility, decr R trunk rotators tightness, self care for pelvic congestion. Biofeedback assessment/ training with vaginal electrode. Sacral balancing as needed (in position of D&C).
--- NOTE | 2023-07-03 16:12 | PT.OTN ---
Current Diagnoses Other chronic pain (07/03/23) Constipation, unspecified (07/03/23) Low back pain, unspecified (07/03/23) Separation of muscle (nontraumatic), unspecified site (07/03/23) Stress incontinence (female) (male) (07/03/23) Other specified conditions associated with female genital organs and menstrual cycle (07/03/23) Pelvic and perineal pain (07/03/23) Physical Therapy Treatment Note PT-OP-A Visit Information Start: 02/27/23 07:56 Freq: Status: Active Protocol: Document 07/03/23 09:35 LRN (Rec: 07/03/23 10:36 LRN [id number]) Out-Patient Physical Therapy Visit Information Visit Information Visit Type Treatment Note Visit Start Time 09:35 Visit Stop Time 10:13 Total Visit Minutes 38 Visit Number 12 Evaluation Information Evaluation Date 02/27/23 Precautions Precautions D&E after miscarriage 04/2022, Depression, MADISON's. PT-OP-B Current Condition Start: 02/27/23 07:56 Freq: Status: Active Protocol: Document 02/27/23 08:00 LRN (Rec: 02/27/23 08:55 LRN [id number]) Current Condition History of Current Condition Onset Date 04/2022 Current Complaints Pelvic pain History of Current Condition Pelvic pain onset after miscarriage of 17 wk old fetus . Pt underwent D&E in April 2022 (pt reported fetus was 11 days prior to miscarriage). She reports heavy bleeding after D&E for a month, then noticed a lot of lower trunk pain. She states 2 blood vessels were found to be dilated more than normal, then 2 months later found vessels still enlarged. Prior to had pelvic pain but they it was thought to be due to endometriosis, but had no proof. She has now been diagnosed with pelvic congestion by [facility] and was referred to to get ovarian veins embolized . Pt has chosen to not do surgery because she doesn't feel she has enough pain to merit surgery. She would rather try physical therapy first to see if it she can avoid surgery. Per intake form and pt report of PMH: Varicose veins, pelvic congestion. MADISON's thought due to allergies, 1-2 every 2 weeks. Future Testing and Treatments Planned Samantha Jacques next visit May ~ or . Developmental History Developmental History Pt reports has also been diagnosed with IBS and has had PF pain history. States after first had start of pelvic pain. First born in 2015 w/o complications and no onset of incontinence. She reports bad UTI in 2020, resulting in onset of pressure and discomfort. States she has been found to have blood in urine by Dr. Ricketts, but urethra scope found everything to be okay. She is still having microbleeding that is thought to be due to microbleeding from pelvic congestion. Pt used to exercise a lot, but since miscarriage hasn't. Found pain problem due to exercise, after exercise would experience a lot of pain. Wants to run again. Used to run 3K's after 1st . After stopped, but now jogs/walks on TM, does ALYSSA exer, Pilates and yoga at home workouts. Treatment Goals Patient/Caregiver Goals Pt goal with therapy is to relieve pelvic pain to avoid surgery. 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 PT-OP-C Subjective Start: 02/27/23 07:56 Freq: Status: Active Protocol: Document 07/03/23 09:35 LRN (Rec: 07/03/23 10:36 LRN [id number]) OP-PT Subjective Patient Comments Patient Comments No urinary leakage. Started period and abdominal cramping was minimum. PT-OP-I Pelvic Floor Start: 02/27/23 07:56 Freq: Status: Active Protocol: Document 02/27/23 08:00 LRN (Rec: 02/27/23 08:55 LRN [id number]) Pelvic Floor Assessment Urine Pelvic Floor Surgery No Urinary Symptoms Pain Leakage Size Small Leakage Cause Cough,Sneeze Pads Used In 24 Hours 1-2 Urine Pad Type Panty Liner Bowel Bowel Symptoms Constipation Other Bowel Symptoms Diarrhea Bowel Movement Frequency Usually daily, sometimes every other day. [place] Stool Chart Comments Cycles between Constipation & Diarrhea Prolapse Prolapse Comments Bulge in area of rectum (6 of PF clock), that was spongy, and no tenderness. Not consistent with feeling of rectocele. Contraction Ability Manual Muscle Testing Left 1 Manual Muscle Testing Right 1 Manual Muscle Testing Anterior 1 Manual Muscle Testing Posterior 3 Muscle Endurance (Seconds) 10 Number of Quick Contractions In 10 3 Seconds Comments Pelvic Floor Comments Pt PF contractions are sluggish. Pt reports PF pain with menstration and occasionally with exercise. Pt lately finds exercise helps decrease pain. Pt PF pain is worse if not regular with bowel movements. PT-OP-J Posture/Palpation/Skin Start: 02/27/23 07:56 Freq: Status: Active Protocol: Document 04/24/23 09:38 LRN (Rec: 04/24/23 10:25 LRN [id number]) Palpation Assessment Location Sacrum Palpation Location Sacrum Palpation Details Decreased mobility of R PA of sacral sulcus, Shear to the L , R PA of SIMIN & ischial tub Abdomen Palpation Location Abdomen Palpation Details Doming with head lift in lower abdomen. PT-OP-K Range of Motion Start: 02/27/23 07:56 Freq: Status: Active Protocol: Document 07/03/23 09:35 LRN (Rec: 07/03/23 10:36 LRN [id number]) Lumbar Spine Range of Motion Lumbar Spine Active Degrees Testing Position Standing Lateral Flexion Left 17 Lateral Flexion Right 17 Hip Goniometric Range of Motion Hip Right Passive Testing Position Supine Internal Rotation 55 External Rotation 50 Left Passive Testing Position Supine Internal Rotation 50 External Rotation 70 PT-OP-M Strength Start: 02/27/23 07:56 Freq: Status: Active Protocol: Document 02/27/23 08:00 LRN (Rec: 02/27/23 08:55 LRN [id number]) Trunk Strength Trunk Manual Muscle Testing Core Stabilization Decreased core stability with lift of R LE hip flex., L hip AD Hip Strength Hip Manual Muscle Testing Right Flexion (L2) 5 Normal Extension (S1) 5 Normal Abduction 5 Normal Adduction 5 Normal External Rotation 5 Normal Internal Rotation 5 Normal Left Flexion (L2) 5 Normal Extension (S1) 5 Normal Abduction 5 Normal Adduction 3 Fair External Rotation 5 Normal Internal Rotation 5 Normal PT-OP-Q Treatments Start: 02/27/23 07:56 Freq: Status: Active Protocol: Document 07/03/23 09:35 LRN (Rec: 07/03/23 10:36 LRN [id number]) Cardio Equipment Elliptical Duration (Minutes) 8 Resistance 4'@ lev 3, 4' @ lev 4, then reverse Other Cuing for foot placement, breathing, Therapeutic Exercises Supine Exercises Hip IR stretches Supine Exercise Name Piriformis & Lateral Hip stretch Side left Fig 4 stretch Supine Exercise Name Fig 4 stretch Side right Reps/Minutes 6' Comments Cuing to cross ankle over knee for hold. Prone Exercises Prone press Prone Exercise Name Prone press - 1/2 plank Equipment Used Laying on Wedge Reps/Minutes 4' Comments Cuing to breath and prevent abdominal doming. Lower doming present Standing Exercises Trunk Rot Standing Exercise Name Trunk Rot Side bilateral Equipment Used Lev 3 TB, Mirror. Reps/Minutes 8x each of TB hold: chest, umbilicus, low Comments Cuing for ribs over hips, PPT to minimize lordosis, & coord of breathng Manual Therapy Treatment Soft Tissue Mobilization QL Body Location L QL Mobilization Type Sustained Pressure Intensity/Depth Moderate Body Position Supine Abdomen Body Location Lower abdomen (Region: Uterus L rot, and R SB) & abdominal lift Mobilization Type Myofascial Release Intensity/Depth Moderate Body Position Hooklying Comments For abdominal region of uterus held w/knee rolls R and R hip hike. Abdominal lift, holding PPT ( posterior pelvic tilt) through APT (anterior pelvic tilt). PT-OP-T Assessment and Plan Start: 02/27/23 07:56 Freq: Status: Active Protocol: Document 07/03/23 09:35 LRN (Rec: 07/03/23 10:36 LRN [id number]) Physical Therapy Assessment Goals Four Impairment Diastasis Rectus causing core instability Impairment Initial Assessment: Umbilicus 4 above: Xiphoid Process: Closed Umbilicus 3 above: 2 finger widths Umbilicus 2 above: 2 finger widths Umbilicus 1 above: 2 finger widths Umbilicus Umbilicus: 1 below: 1 finger widths Umbilicus: 2 below: 1 finger widths Umbilicus: 3 below: 1 finger widths Umbilicus: 4 below: Pubic Symphysis closed Short Term Goal (STG) Pt will be educated in best practice to minimize DR with transfers using sheet/towel method. STG Duration 03/20/23 (04/07/23: MET GOAL) Senior Care Goal (LTG) Decrease DR, greater expected decrease to occur in > 6 months due to post hormonal changes. LTG Duration 08/27/23 Three Impairment Decreased function Impairment Lower abdominal/pelvic floor/ LBP with lifting her child Limited with exercise due to onset of lower abdominal/LB/ Pelvic pain. Short Term Goal (STG) Pt will be educated in proper sitting/standing posture and educated in proper body mechanics for ADLs and exercise. STG Duration 03/27/23 (04/17/23: MET GOAL) Legal Administrative Secretary Goal (LTG) Pt educated in proper transfers and functional mobility to lessen core abdominal pressure with pt able to return to modified exercise and functional activities with minimal onset of lower abdominal/PF/LBP. 04/24/23: Pt educated in proper transfers with proper breathwork to to lessen core abdominal pressure. 06/25/23: Added Trunk Rot strengthening for DR and core stab. 05/21/23: Review with handout issued for log roll transfer to protect DR. 06/12/23: Started TM ex. Reviewed proper transfers cuing for TA tightening and breathwork, pt mostly performing correctly unless emergent need to help her child. LTG Duration 06/28/23 progressed 06/25/23 (need core press mgmt w/functl activites) Two Impairment Lower abdominal, PF, and LBP rated 1-2/10. Short Term Goal (STG) Pt will be educated in self care pain/inflammation management with cold pack and RICE technique. STG Duration 03/13/23 (04/17/23: MET GOAL ) Senior Care Goal (LTG) Pt will be educated in proper hydration norms, BM massage and proper bowel care with lessening of onset of lower abdominal/PF/LBP to minimal or pt tolerable level. 06/04/23: Pt educated in proper hydration norm, & BM massage. 06/12/23: STM reducing abdominal cramping to occasional. LTG Duration 05/10/23 progressed 06/12/23 (need educ bowel care) One Impairment Pt lacks self care HEP. Short Term Goal (STG) Pt will be independent in appropriate self care & hip stretches. 04/17/23: I/S pt in hip ER stretch (Fig 4) 07/03/23: I/S pt in R hip ER- fig4 stretch and L IR (Lateral hip, piriformis). STG Duration 05/29/23 (07/03/23: MET GOAL) Senior Care Goal (LTG) Pt will be independent in appropriate PF (to decrease urinary leakage) & core strengthening ex's to improve posture of rib cage over hips. 05/21/23: HEP: TA strengthening 4pt & sidelie, instructions can be done in sit/stand. 06/12/23: I/S pt in trunk rot. LTG Duration 05/29/23 progressed 06/12/23 Assessment Summary Assessment No c/o urinary leakage. Minimal onset of abdominal pain with start of period. On Eliptical: L shoulder and hip are tight causing L scap retract, and decreased upper body rotation and mild decrease in L hip lateral shift on stance. Tightness w/ L hip IR & R hip ER. Supine, R Ilipsoas no longer appears tighter than L; pelvis is level and symmetrical in supine. 1/2 Plank resulted in lower abdomen bulge. Physical Therapy Plan Frequency and Duration Frequency of Treatment 1x/Week Plan of Care Start Date 02/27/23 Plan of Care End Date 08/27/23 Next Visit Focus/Plan Next Note Type Treatment Note Next Visit Plan Pt to schedule 1-2 more appts to complete program. Check DR. Review hip stretches. Progress towards return to ex w/proper core pressure management, Progress DR (add rotation ex) and monitor for plank tolerance for abdominal doming . STG #3: Educ in functl activites to lessen core abdominal pressure (breathwork ). Educate in PF stabilization with proper abdominal pressure system; LTG #2: Educate in proper bowel care for lessening of onset of lower abdominal/PF/ LBP. Education: in proper Kegel without use of substitute muscles. PF and L hip IR/AD strengthening Core stabilization (for DR protection, ?K-taping for DR) POC: Normalize abdominal soft tissue (bladder) mobility, decr R trunk rotators tightness, self care for pelvic congestion. Monitor: R hip ER/ L hip IR mobility. Biofeedback assessment/ training with vaginal electrode. Sacral balancing as needed (in position of D&C).
--- NOTE | 2023-07-17 10:31 | PT.OTN ---
Current Diagnoses Other chronic pain (07/17/23) Constipation, unspecified (07/17/23) Low back pain, unspecified (07/17/23) Separation of muscle (nontraumatic), unspecified site (07/17/23) Stress incontinence (female) (male) (07/17/23) Other specified conditions associated with female genital organs and menstrual cycle (07/17/23) Pelvic and perineal pain (07/17/23) Physical Therapy Treatment Note PT-OP-A Visit Information Start: 02/27/23 07:56 Freq: Status: Active Protocol: Document 07/17/23 09:33 LRN (Rec: 07/17/23 10:30 LRN [id number]) Out-Patient Physical Therapy Visit Information Visit Information Visit Type Treatment Note Visit Start Time 09:33 Visit Stop Time 10:13 Total Visit Minutes 39 Visit Number 12 Evaluation Information Evaluation Date 02/27/23 Precautions Precautions D&E after miscarriage 04/2022, Depression, MADISON's. PT-OP-B Current Condition Start: 02/27/23 07:56 Freq: Status: Active Protocol: Document 02/27/23 08:00 LRN (Rec: 02/27/23 08:55 LRN [id number]) Current Condition History of Current Condition Onset Date 04/2022 Current Complaints Pelvic pain History of Current Condition Pelvic pain onset after miscarriage of 17 wk old fetus . Pt underwent D&E in April 2022 (pt reported fetus was 11 days prior to miscarriage). She reports heavy bleeding after D&E for a month, then noticed a lot of lower trunk pain. She states 2 blood vessels were found to be dilated more than normal, then 2 months later found vessels still enlarged. Prior to had pelvic pain but they it was thought to be due to endometriosis, but had no proof. She has now been diagnosed with pelvic congestion by [facility] and was referred to to get ovarian veins embolized . Pt has chosen to not do surgery because she doesn't feel she has enough pain to merit surgery. She would rather try physical therapy first to see if it she can avoid surgery. Per intake form and pt report of PMH: Varicose veins, pelvic congestion. MADISON's thought due to allergies, 1-2 every 2 weeks. Future Testing and Treatments Planned Samantha Jacques next visit May ~ or . Developmental History Developmental History Pt reports has also been diagnosed with IBS and has had PF pain history. States after first had start of pelvic pain. First born in 2015 w/o complications and no onset of incontinence. She reports bad UTI in 2020, resulting in onset of pressure and discomfort. States she has been found to have blood in urine by Dr. Ricketts, but urethra scope found everything to be okay. She is still having microbleeding that is thought to be due to microbleeding from pelvic congestion. Pt used to exercise a lot, but since miscarriage hasn't. Found pain problem due to exercise, after exercise would experience a lot of pain. Wants to run again. Used to run 3K's after 1st . After stopped, but now jogs/walks on TM, does ALYSSA exer, Pilates and yoga at home workouts. Treatment Goals Patient/Caregiver Goals Pt goal with therapy is to relieve pelvic pain to avoid surgery. 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 PT-OP-C Subjective Start: 02/27/23 07:56 Freq: Status: Active Protocol: Document 07/17/23 09:33 LRN (Rec: 07/17/23 10:30 LRN [id number]) OP-PT Subjective Patient Comments Patient Comments Doing really well. No urinary incontinence. Have had lower abdominal pain once in the past 2 weeks that was very minor and is now ovulating and normally causes cramping. States the worst cramping is just before period starts (in ~10 days). PT-OP-I Pelvic Floor Start: 02/27/23 07:56 Freq: Status: Active Protocol: Document 02/27/23 08:00 LRN (Rec: 02/27/23 08:55 LRN [id number]) Pelvic Floor Assessment Urine Pelvic Floor Surgery No Urinary Symptoms Pain Leakage Size Small Leakage Cause Cough,Sneeze Pads Used In 24 Hours 1-2 Urine Pad Type Panty Liner Bowel Bowel Symptoms Constipation Other Bowel Symptoms Diarrhea Bowel Movement Frequency Usually daily, sometimes every other day. [place] Stool Chart Comments Cycles between Constipation & Diarrhea Prolapse Prolapse Comments Bulge in area of rectum (6 of PF clock), that was spongy, and no tenderness. Not consistent with feeling of rectocele. Contraction Ability Manual Muscle Testing Left 1 Manual Muscle Testing Right 1 Manual Muscle Testing Anterior 1 Manual Muscle Testing Posterior 3 Muscle Endurance (Seconds) 10 Number of Quick Contractions In 10 3 Seconds Comments Pelvic Floor Comments Pt PF contractions are sluggish. Pt reports PF pain with menstration and occasionally with exercise. Pt lately finds exercise helps decrease pain. Pt PF pain is worse if not regular with bowel movements. PT-OP-J Posture/Palpation/Skin Start: 02/27/23 07:56 Freq: Status: Active Protocol: Document 04/24/23 09:38 LRN (Rec: 04/24/23 10:25 LRN [id number]) Palpation Assessment Location Sacrum Palpation Location Sacrum Palpation Details Decreased mobility of R PA of sacral sulcus, Shear to the L , R PA of SIMIN & ischial tub Abdomen Palpation Location Abdomen Palpation Details Doming with head lift in lower abdomen. PT-OP-K Range of Motion Start: 02/27/23 07:56 Freq: Status: Active Protocol: Document 07/03/23 09:35 LRN (Rec: 07/03/23 10:36 LRN [id number]) Lumbar Spine Range of Motion Lumbar Spine Active Degrees Testing Position Standing Lateral Flexion Left 17 Lateral Flexion Right 17 Hip Goniometric Range of Motion Hip Right Passive Testing Position Supine Internal Rotation 55 External Rotation 50 Left Passive Testing Position Supine Internal Rotation 50 External Rotation 70 PT-OP-M Strength Start: 02/27/23 07:56 Freq: Status: Active Protocol: Document 02/27/23 08:00 LRN (Rec: 02/27/23 08:55 LRN [id number]) Trunk Strength Trunk Manual Muscle Testing Core Stabilization Decreased core stability with lift of R LE hip flex., L hip AD Hip Strength Hip Manual Muscle Testing Right Flexion (L2) 5 Normal Extension (S1) 5 Normal Abduction 5 Normal Adduction 5 Normal External Rotation 5 Normal Internal Rotation 5 Normal Left Flexion (L2) 5 Normal Extension (S1) 5 Normal Abduction 5 Normal Adduction 3 Fair External Rotation 5 Normal Internal Rotation 5 Normal PT-OP-Q Treatments Start: 02/27/23 07:56 Freq: Status: Active Protocol: Document 07/17/23 09:33 LRN (Rec: 07/17/23 10:30 LRN [id number]) Cardio Equipment Treadmill Duration (Minutes) 10 Speed 2.5 Therapeutic Exercises Supine Exercises Hip IR stretches Supine Exercise Name Piriformis & Lateral Hip stretch Side left Reps/Minutes 3' Comments Phys assist cuing needed for both ex's and cuing for only L side Fig 4 stretch Supine Exercise Name Fig 4 stretch Side right Reps/Minutes 6' Comments Cuing to cross ankle over knee for hold. Prone Exercises Plank: knee to elbow Prone Exercise Name Plank Knee to elbow Side bilateral Equipment Used Floor mat Reps/Minutes 10' Comments Cuing to keep pelvis stable with L knee to elbow ABdominal stretch Prone Exercise Name Prone on hands Side bilateral Equipment Used Floor mat Reps/Minutes 2' Comments Cuing for positioning Prone press Prone Exercise Name Prone press - 1/2 plank and full plank Equipment Used Floor mat, Wedge and off wedge , Reps/Minutes 12' Comments Cuing to breath and prevent abdominal doming. Lower doming present Sidelying Exercises Open book stretch Sidelying Exercise Name Open Book stretch to the right for R QL/rotator stretch. Side bilateral Reps/Minutes 10 SH x 5 to right; 10 SH x 1 to the left Standing Exercises Trunk Rot Standing Exercise Name Trunk Rot Side bilateral Equipment Used Lev 4 TB, Mirror. Reps/Minutes 10x 3 L, 15x R: chest, umbilicus, low Comments Cuing for ribs over hips, PPT to minimize lordosis, & coord of breathng Other Exercises Side Plank Other Exercise Name Abdominal control Side Plank Side bilateral Equipment Used Floor mat Reps/Minutes 8' Comments Cuing for positioning, breathwork/PF contraction. Pt feeling L side easier Self-Care/Home Management Treatment Education Other Education Reviewed & Educated pt in PF stabilization with proper abdominal pressure system ( proper breathwork) PT-OP-T Assessment and Plan Start: 02/27/23 07:56 Freq: Status: Active Protocol: Document 07/17/23 09:33 LRN (Rec: 07/17/23 10:30 LRN [id number]) Physical Therapy Assessment Goals Four Impairment Initial Assessment: Umbilicus 4 above: Xiphoid Process: Closed Umbilicus 3 above: 2 finger widths Umbilicus 2 above: 2 finger widths Umbilicus 1 above: 2 finger widths Umbilicus Umbilicus: 1 below: 1 finger widths Umbilicus: 2 below: 1 finger widths Umbilicus: 3 below: 1 finger widths Umbilicus: 4 below: Pubic Symphysis closed Short Term Goal (STG) Pt will be educated in best practice to minimize DR with transfers using sheet/towel method. STG Duration 03/20/23 (04/07/23: MET GOAL) Residential Goal (LTG) Decrease DR, greater expected decrease to occur in > 6 months due to post hormonal changes. : Umbilicus 4 above: Xiphoid Process: Closed Umbilicus 3 above: Closed Umbilicus 2 above: Closed Umbilicus 1 above: 1/2 finger , very, very shallow Umbilicus Umbilicus: 1 below: 1/2 finger, very, very shallow Umbilicus: 2 below: Closed Umbilicus: 3 below: Closed Umbilicus: 4 below: Pubic Symphysis closed LTG Duration 08/27/23 (07/17/23: MET GOAL ). Three Impairment Decreased function Impairment Lower abdominal/pelvic floor/ LBP with lifting her child Limited with exercise due to onset of lower abdominal/LB/ Pelvic pain. Short Term Goal (STG) Pt will be educated in proper sitting/standing posture and educated in proper body mechanics for ADLs and exercise. 07/17/23: Reviewed/Educated pt in PF stabilization with proper abdominal pressure system (proper breathwork) for exercise. STG Duration 03/27/23 (04/17/23: MET GOAL) Distilling Department Supervisor Goal (LTG) Pt educated in proper transfers and functional mobility to lessen core abdominal pressure with pt able to return to modified exercise and functional activities with minimal onset of lower abdominal/PF/LBP. 04/24/23: Pt educated in proper transfers with proper breathwork to to lessen core abdominal pressure. 06/25/23: Added Trunk Rot strengthening for DR and core stab. 05/21/23: Review with handout issued for log roll transfer to protect DR. 06/12/23: Started TM ex. Reviewed proper transfers cuing for TA tightening and breathwork, pt mostly performing correctly unless emergent need to help her child. LTG Duration 06/28/23 progressed 06/25/23 (need core press mgmt w/functl activites) Two Impairment Lower abdominal, PF, and LBP rated 1-2/10. Short Term Goal (STG) Pt will be educated in self care pain/inflammation management with cold pack and RICE technique. STG Duration 03/13/23 (04/17/23: MET GOAL ) Residential Goal (LTG) Pt will be educated in proper hydration norms, BM massage and proper bowel care with lessening of onset of lower abdominal/PF/LBP to minimal or pt tolerable level. 06/04/23: Pt educated in proper hydration norm, & BM massage. 06/12/23: STM reducing abdominal cramping to occasional. LTG Duration 05/10/23 progressed 06/12/23 (need educ bowel care) One Impairment Pt lacks self care HEP. Short Term Goal (STG) Pt will be independent in appropriate self care & hip stretches. 04/17/23: I/S pt in hip ER stretch (Fig 4) 07/03/23: I/S pt in R hip ER- fig4 stretch and L IR (Lateral hip, piriformis). STG Duration 05/29/23 (07/03/23: MET GOAL) Residential Goal (LTG) Pt will be independent in appropriate PF (to decrease urinary leakage) & core strengthening ex's to improve posture of rib cage over hips. 05/21/23: HEP: TA strengthening 4pt & sidelie, instructions can be done in sit/stand. 07/17/23: HEP: Side plank, Prone knee to elbow. 06/12/23: I/S pt in trunk rot. LTG Duration 05/29/23 progressed 07/17/23 Assessment Summary Assessment Pt needed recall of L lateral hip stretch, otherwise familiar with stretches. Walking on TM noted pt tight in R upper neck, no abdominal pain. Cuing for TA tight before ex to prevent doming, but DR mainly closed, very very shallow around umbilicus. Pt weak with pelvic L rotators (?R rotators). Pt notes L lateral trunk weaker than R. Further trunk rot strengthening needed for HEP. Physical Therapy Plan Frequency and Duration Frequency of Treatment 1x/Week Plan of Care Start Date 02/27/23 Plan of Care End Date 08/27/23 Next Visit Focus/Plan Next Note Type Treatment Note Next Visit Plan 1-2 more appts to complete program (pt wanting to do [address] Assess hip rot mobility for HEP of stretches needing cont'd singular stretching or bilateral. Progress HEP for trunk rot ( add prone windmill) w/proper core pressure management STG #3: Educ in functl activites to lessen core abdominal pressure (breathwork ). LTG #2: Educate in proper bowel care for lessening of onset of lower abdominal/PF/ LBP. Education: in proper Kegel without use of substitute muscles. PF and L hip IR/AD strengthening Core stabilization POC: Normalize abdominal soft tissue (bladder) mobility, decr R trunk rotators tightness, self care for pelvic congestion. Monitor: R hip ER/ L hip IR mobility. Biofeedback assessment/ training with vaginal electrode. Sacral balancing as needed (in position of D&C).
--- NOTE | 2023-08-06 12:09 | PT.OTN ---
Current Diagnoses Other chronic pain (08/06/23) Constipation, unspecified (08/06/23) Low back pain, unspecified (08/06/23) Separation of muscle (nontraumatic), unspecified site (08/06/23) Stress incontinence (female) (male) (08/06/23) Other specified conditions associated with female genital organs and menstrual cycle (08/06/23) Pelvic and perineal pain (08/06/23) Physical Therapy Treatment Note PT-OP-A Visit Information Start: 02/27/23 07:56 Freq: Status: Active Protocol: Document 08/06/23 10:34 LRN (Rec: 08/06/23 12:08 LRN [id number]) Out-Patient Physical Therapy Visit Information Visit Information Visit Type Treatment Note Visit Start Time 10:34 Visit Stop Time 11:15 Total Visit Minutes 41 Visit Number 13 Evaluation Information Evaluation Date 02/27/23 Precautions Precautions D&E after miscarriage 04/2022, Depression, MADISON's. PT-OP-B Current Condition Start: 02/27/23 07:56 Freq: Status: Active Protocol: Document 02/27/23 08:00 LRN (Rec: 02/27/23 08:55 LRN [id number]) Current Condition History of Current Condition Onset Date 04/2022 Current Complaints Pelvic pain History of Current Condition Pelvic pain onset after miscarriage of 17 wk old fetus . Pt underwent D&E in April 2022 (pt reported fetus was 11 days prior to miscarriage). She reports heavy bleeding after D&E for a month, then noticed a lot of lower trunk pain. She states 2 blood vessels were found to be dilated more than normal, then 2 months later found vessels still enlarged. Prior to had pelvic pain but they it was thought to be due to endometriosis, but had no proof. She has now been diagnosed with pelvic congestion by [facility] and was referred to to get ovarian veins embolized . Pt has chosen to not do surgery because she doesn't feel she has enough pain to merit surgery. She would rather try physical therapy first to see if it she can avoid surgery. Per intake form and pt report of PMH: Varicose veins, pelvic congestion. MADISON's thought due to allergies, 1-2 every 2 weeks. Future Testing and Treatments Planned Samantha Jacques next visit May ~ or . Developmental History Developmental History Pt reports has also been diagnosed with IBS and has had PF pain history. States after first had start of pelvic pain. First born in 2015 w/o complications and no onset of incontinence. She reports bad UTI in 2020, resulting in onset of pressure and discomfort. States she has been found to have blood in urine by Dr. Ricketts, but urethra scope found everything to be okay. She is still having microbleeding that is thought to be due to microbleeding from pelvic congestion. Pt used to exercise a lot, but since miscarriage hasn't. Found pain problem due to exercise, after exercise would experience a lot of pain. Wants to run again. Used to run 3K's after 1st . After stopped, but now jogs/walks on TM, does ALYSSA exer, Pilates and yoga at home workouts. Treatment Goals Patient/Caregiver Goals Pt goal with therapy is to relieve pelvic pain to avoid surgery. 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 PT-OP-C Subjective Start: 02/27/23 07:56 Freq: Status: Active Protocol: Document 08/06/23 10:34 LRN (Rec: 08/06/23 12:08 LRN [id number]) OP-PT Subjective Patient Comments Patient Comments NO Urinary leakage. States she only had 1 day of abdominal cramping (day before had intercourse) and had to take Naproxin, and then period started with no abdominal pain to note. PT-OP-I Pelvic Floor Start: 02/27/23 07:56 Freq: Status: Active Protocol: Document 08/06/23 10:34 LRN (Rec: 08/06/23 12:08 LRN [id number]) Pelvic Floor Assessment Contraction Ability Voluntary Contraction Weak Manual Muscle Testing Left 3 Manual Muscle Testing Right 2 Manual Muscle Testing Anterior 3 Manual Muscle Testing Posterior 3 Muscle Endurance (Seconds) 10 Number of Quick Contractions In 10 5 Seconds Comments Pelvic Floor Comments PF contraction is weak but felt around the PF clock. Strongest contraction noted at 6 O'Clock. PT-OP-J Posture/Palpation/Skin Start: 02/27/23 07:56 Freq: Status: Active Protocol: Document 04/24/23 09:38 LRN (Rec: 04/24/23 10:25 LRN [id number]) Palpation Assessment Location Sacrum Palpation Location Sacrum Palpation Details Decreased mobility of R PA of sacral sulcus, Shear to the L , R PA of SIMIN & ischial tub Abdomen Palpation Location Abdomen Palpation Details Doming with head lift in lower abdomen. PT-OP-K Range of Motion Start: 02/27/23 07:56 Freq: Status: Active Protocol: Document 07/03/23 09:35 LRN (Rec: 07/03/23 10:36 LRN [id number]) Lumbar Spine Range of Motion Lumbar Spine Active Degrees Testing Position Standing Lateral Flexion Left 17 Lateral Flexion Right 17 Hip Goniometric Range of Motion Hip Right Passive Testing Position Supine Internal Rotation 55 External Rotation 50 Left Passive Testing Position Supine Internal Rotation 50 External Rotation 70 PT-OP-M Strength Start: 02/27/23 07:56 Freq: Status: Active Protocol: Document 02/27/23 08:00 LRN (Rec: 02/27/23 08:55 LRN [id number]) Trunk Strength Trunk Manual Muscle Testing Core Stabilization Decreased core stability with lift of R LE hip flex., L hip AD Hip Strength Hip Manual Muscle Testing Right Flexion (L2) 5 Normal Extension (S1) 5 Normal Abduction 5 Normal Adduction 5 Normal External Rotation 5 Normal Internal Rotation 5 Normal Left Flexion (L2) 5 Normal Extension (S1) 5 Normal Abduction 5 Normal Adduction 3 Fair External Rotation 5 Normal Internal Rotation 5 Normal PT-OP-Q Treatments Start: 02/27/23 07:56 Freq: Status: Active Protocol: Document 08/06/23 10:34 LRN (Rec: 08/06/23 12:08 LRN [id number]) Cardio Equipment Elliptical Duration (Minutes) 10 Resistance 5'@ lev 3, 5' @ lev 4, then reverse Other Cuing for foot placement, breathing,wgt shift R Therapeutic Exercises Supine Exercises Hip IR stretches Supine Exercise Name Piriformis & Lateral Hip stretch Side left Reps/Minutes 6' Comments Phys assist cuing needed for both ex's and cuing for only L side Fig 4 stretch Supine Exercise Name Fig 4 stretch Side right Reps/Minutes 4' Comments Towel fold placed under buttock to avoid pelvic rot w/ stretch Manual Therapy Treatment Soft Tissue Mobilization PF Body Location PF R side Bulbospongiosus and Levator Ani. Mobilization Type Sustained Pressure Body Position Supine Comments Improved PF contraction felt R side and posteriorly after manual mob. Abdomen Body Location Lower abdomen (Region: adri Urachus) & abdominal lift w/ knee rolls Mobilization Type Myofascial Release Intensity/Depth Moderate Body Position Hooklying Comments For abdominal lift region held w/knee rolls L. Region Urachus for sideglide ( L>R) and CCW>CW rotation Self abdominal mob for same PT-OP-T Assessment and Plan Start: 02/27/23 07:56 Freq: Status: Active Protocol: Document 08/06/23 10:34 LRN (Rec: 08/06/23 12:08 LRN [id number]) Physical Therapy Assessment Goals Four Impairment Initial Assessment: Umbilicus 4 above: Xiphoid Process: Closed Umbilicus 3 above: 2 finger widths Umbilicus 2 above: 2 finger widths Umbilicus 1 above: 2 finger widths Umbilicus Umbilicus: 1 below: 1 finger widths Umbilicus: 2 below: 1 finger widths Umbilicus: 3 below: 1 finger widths Umbilicus: 4 below: Pubic Symphysis closed Short Term Goal (STG) Pt will be educated in best practice to minimize DR with transfers using sheet/towel method. STG Duration 03/20/23 (04/07/23: MET GOAL) Mcc Goal (LTG) Decrease DR, greater expected decrease to occur in > 6 months due to post hormonal changes. : Umbilicus 4 above: Xiphoid Process: Closed Umbilicus 3 above: Closed Umbilicus 2 above: Closed Umbilicus 1 above: 1/2 finger , very, very shallow Umbilicus Umbilicus: 1 below: 1/2 finger, very, very shallow Umbilicus: 2 below: Closed Umbilicus: 3 below: Closed Umbilicus: 4 below: Pubic Symphysis closed LTG Duration 08/27/23 (07/17/23: MET GOAL ). Three Impairment Decreased function Impairment Lower abdominal/pelvic floor/ LBP with lifting her child Limited with exercise due to onset of lower abdominal/LB/ Pelvic pain. Short Term Goal (STG) Pt will be educated in proper sitting/standing posture and educated in proper body mechanics for ADLs and exercise. 07/17/23: Reviewed/Educated pt in PF stabilization with proper abdominal pressure system (proper breathwork) for exercise. STG Duration 03/27/23 (04/17/23: MET GOAL) Mcc Goal (LTG) Pt educated in proper transfers and functional mobility to lessen core abdominal pressure with pt able to return to modified exercise and functional activities with minimal onset of lower abdominal/PF/LBP. 04/24/23: Pt educated in proper transfers with proper breathwork to to lessen core abdominal pressure. 06/25/23: Added Trunk Rot strengthening for DR and core stab. 05/21/23: Review with handout issued for log roll transfer to protect DR. 06/12/23: Started TM ex. Reviewed proper transfers cuing for TA tightening and breathwork, pt mostly performing correctly unless emergent need to help her child. LTG Duration 06/28/23 progressed 06/25/23 (need core press mgmt w/functl activites) Two Impairment Lower abdominal, PF, and LBP rated 1-2/10. Short Term Goal (STG) Pt will be educated in self care pain/inflammation management with cold pack and RICE technique. STG Duration 03/13/23 (04/17/23: MET GOAL ) City Engineer Goal (LTG) Pt will be educated in proper hydration norms, BM massage and proper bowel care with lessening of onset of lower abdominal/PF/LBP to minimal or pt tolerable level. 06/04/23: Pt educated in proper hydration norm, & BM massage. 06/12/23: STM reducing abdominal cramping to occasional. LTG Duration 05/10/23 progressed 06/12/23 (need educ bowel care) One Impairment Pt lacks self care HEP. Short Term Goal (STG) Pt will be independent in appropriate self care & hip stretches. 04/17/23: I/S pt in hip ER stretch (Fig 4) 07/03/23: I/S pt in R hip ER- fig4 stretch and L IR (Lateral hip, piriformis). STG Duration 05/29/23 (07/03/23: MET GOAL) City Engineer Goal (LTG) Pt will be independent in appropriate PF (to decrease urinary leakage) & core strengthening ex's to improve posture of rib cage over hips. 05/21/23: HEP: TA strengthening 4pt & sidelie, instructions can be done in sit/stand. 07/17/23: HEP: Side plank, Prone knee to elbow. 06/12/23: I/S pt in trunk rot. 08/06/23: Self abdominal STM. LTG Duration 05/29/23 progressed Assessment Summary Assessment Pt was 10 months s/p miscarriage and D&E surgery of 17 wk fetus, attending therapy for pelvic pain, diagnosed with PF congestion. Pt has overall decreased PF pain except 1x after intercourse and no pain during menstration in the past 3 weeks. Pt needed retraining for hip stretches (Piriformis and Lateral Hip) and has not been able to stretch due to illness; possibly causing decreased PF circulation and therefore lower abdominal pain . She was shown self abdominal soft tissue stretching for home program that will probably help to minimize her pain. Sluggishness with PF contractions appeared to have lessened, especially posteriorly after PF stretching and she was able to perform 5 PF contractions in 10 secs with a stronger contraction felt on the R side . L lateral wall appears to have greater tone than R lateral wall, possibly due to tight L hip muscles. Pt is not having urinary leakage, but stretching may minimize pelvic congestion and pain w/ menstration or intercourse. Physical Therapy Plan Frequency and Duration Frequency of Treatment 1x/Week Plan of Care Start Date 02/27/23 Plan of Care End Date 08/27/23 Next Visit Focus/Plan Next Note Type Discharge Summary Next Visit Plan 1 more appt to complete program. Assess response of UI after PF stretching to determine if self wand stretching is needed . STG #3: Educ in functl activites to lessen core abdominal pressure (breathwork ). LTG #2: Educate in proper bowel care for lessening of onset of lower abdominal/PF/ LBP. Check DR (if needed add Trunk rot prone windmill) w/proper core pressure management if needed). Assess hip rot PROM for HEP of stretches needing cont'd singular stretching or bilateral (R hip ER/ L hip IR) . Review: proper Kegel without use of substitute muscles. Check: L hip IR/AD strength for need of HEP. POC: Normalize abdominal soft tissue (bladder) mobility, decr R trunk rotators tightness, self care for pelvic congestion.
--- NOTE | 2023-08-14 10:24 | PT.OTN ---
Current Diagnoses Other chronic pain (08/14/23) Constipation, unspecified (08/14/23) Low back pain, unspecified (08/14/23) Separation of muscle (nontraumatic), unspecified site (08/14/23) Stress incontinence (female) (male) (08/14/23) Other specified conditions associated with female genital organs and menstrual cycle (08/14/23) Pelvic and perineal pain (08/14/23) Physical Therapy Treatment Note PT-OP-A Visit Information Start: 02/27/23 07:56 Freq: Status: Active Protocol: Document 08/14/23 08:03 LRN (Rec: 08/14/23 08:55 LRN [id number]) Out-Patient Physical Therapy Visit Information Visit Information Visit Type Treatment Note Visit Start Time 08:03 Visit Stop Time 08:54 Total Visit Minutes 51 Visit Number 14 Evaluation Information Evaluation Date 02/27/23 Precautions Precautions D&E after miscarriage 04/2022, Depression, MADISON's. PT-OP-B Current Condition Start: 02/27/23 07:56 Freq: Status: Active Protocol: Document 02/27/23 08:00 LRN (Rec: 02/27/23 08:55 LRN [id number]) Current Condition History of Current Condition Onset Date 04/2022 Current Complaints Pelvic pain History of Current Condition Pelvic pain onset after miscarriage of 17 wk old fetus . Pt underwent D&E in April 2022 (pt reported fetus was 11 days prior to miscarriage). She reports heavy bleeding after D&E for a month, then noticed a lot of lower trunk pain. She states 2 blood vessels were found to be dilated more than normal, then 2 months later found vessels still enlarged. Prior to had pelvic pain but they it was thought to be due to endometriosis, but had no proof. She has now been diagnosed with pelvic congestion by [facility] and was referred to to get ovarian veins embolized . Pt has chosen to not do surgery because she doesn't feel she has enough pain to merit surgery. She would rather try physical therapy first to see if it she can avoid surgery. Per intake form and pt report of PMH: Varicose veins, pelvic congestion. MADISON's thought due to allergies, 1-2 every 2 weeks. Future Testing and Treatments Planned Samantha Jacques next visit May ~ or . Developmental History Developmental History Pt reports has also been diagnosed with IBS and has had PF pain history. States after first had start of pelvic pain. First born in 2015 w/o complications and no onset of incontinence. She reports bad UTI in 2020, resulting in onset of pressure and discomfort. States she has been found to have blood in urine by Dr. Ricketts, but urethra scope found everything to be okay. She is still having microbleeding that is thought to be due to microbleeding from pelvic congestion. Pt used to exercise a lot, but since miscarriage hasn't. Found pain problem due to exercise, after exercise would experience a lot of pain. Wants to run again. Used to run 3K's after 1st . After stopped, but now jogs/walks on TM, does ALYSSA exer, Pilates and yoga at home workouts. Treatment Goals Patient/Caregiver Goals Pt goal with therapy is to relieve pelvic pain to avoid surgery. 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 PT-OP-C Subjective Start: 02/27/23 07:56 Freq: Status: Active Protocol: Document 08/14/23 08:03 LRN (Rec: 08/14/23 08:55 LRN [id number]) OP-PT Subjective Patient Comments Patient Comments Still recovering from cough so L abdomen has a weird pain, tight feels and causing heartburn. Hasn't returned to ex due to illness. Ready for discharge. Feels she can control her pain through exer/ stretches. Pt noted less tightness in L abdominal region after treatment. Patient Questionnaires PFIQ-7 PFIQ-7 Score 9.5 Pelvic Pain and Urgency/Frequency Patient Symptom Scale Pelvic Pain Score 7 PT-OP-I Pelvic Floor Start: 02/27/23 07:56 Freq: Status: Active Protocol: Document 08/06/23 10:34 LRN (Rec: 08/06/23 12:08 LRN [id number]) Pelvic Floor Assessment Contraction Ability Voluntary Contraction Weak Manual Muscle Testing Left 3 Manual Muscle Testing Right 2 Manual Muscle Testing Anterior 3 Manual Muscle Testing Posterior 3 Muscle Endurance (Seconds) 10 Number of Quick Contractions In 10 5 Seconds Comments Pelvic Floor Comments PF contraction is weak but felt around the PF clock. Strongest contraction noted at 6 O'Clock. PT-OP-J Posture/Palpation/Skin Start: 02/27/23 07:56 Freq: Status: Active Protocol: Document 04/24/23 09:38 LRN (Rec: 04/24/23 10:25 LRN [id number]) Palpation Assessment Location Sacrum Palpation Location Sacrum Palpation Details Decreased mobility of R PA of sacral sulcus, Shear to the L , R PA of SIMIN & ischial tub Abdomen Palpation Location Abdomen Palpation Details Doming with head lift in lower abdomen. PT-OP-K Range of Motion Start: 02/27/23 07:56 Freq: Status: Active Protocol: Document 07/03/23 09:35 LRN (Rec: 07/03/23 10:36 LRN [id number]) Lumbar Spine Range of Motion Lumbar Spine Active Degrees Testing Position Standing Lateral Flexion Left 17 Lateral Flexion Right 17 Hip Goniometric Range of Motion Hip Right Passive Testing Position Supine Internal Rotation 55 External Rotation 50 Left Passive Testing Position Supine Internal Rotation 50 External Rotation 70 PT-OP-M Strength Start: 02/27/23 07:56 Freq: Status: Active Protocol: Document 02/27/23 08:00 LRN (Rec: 02/27/23 08:55 LRN [id number]) Trunk Strength Trunk Manual Muscle Testing Core Stabilization Decreased core stability with lift of R LE hip flex., L hip AD Hip Strength Hip Manual Muscle Testing Right Flexion (L2) 5 Normal Extension (S1) 5 Normal Abduction 5 Normal Adduction 5 Normal External Rotation 5 Normal Internal Rotation 5 Normal Left Flexion (L2) 5 Normal Extension (S1) 5 Normal Abduction 5 Normal Adduction 3 Fair External Rotation 5 Normal Internal Rotation 5 Normal PT-OP-Q Treatments Start: 02/27/23 07:56 Freq: Status: Active Protocol: Document 08/14/23 08:03 LRN (Rec: 08/14/23 08:55 LRN [id number]) Cardio Equipment Elliptical Duration (Minutes) 8 Resistance 8' @ lev 4 Other Cuing for foot placement, breathing,wgt shift R Therapeutic Exercises Supine Exercises Hip IR stretches Supine Exercise Name Piriformis & Lateral Hip stretch Side left Reps/Minutes 6' Comments Phys assist cuing needed for both ex's and cuing for only L side Trunk rot/neck RSB-ext Supine Exercise Name Trunk rot (L>R knee rolls)/ neck RSB-slight R rot Side bilateral Reps/Minutes 10 SH x 5 Comments Extra time taken to determine max alex position, cuing for head turn. Fig 4 stretch Supine Exercise Name Fig 4 stretch Side right Reps/Minutes 4' Comments Towel fold placed under buttock to avoid pelvic rot w/ stretch Manual Therapy Treatment Soft Tissue Mobilization ABdominal @ Ribcage Body Location Under Diaphragm on L side Mobilization Type Sustained Pressure,Trigger Point Release Intensity/Depth Superficial Body Position Hooklying Abdomen Body Location Lower abdomen (Region: adri Urachus) & abdominal lift w/ knee rolls Mobilization Type Myofascial Release Intensity/Depth Moderate Body Position Hooklying Comments For abdominal lift region held w/knee rolls L. Region Urachus for sideglide ( L>R) and CCW>CW rotation Self abdominal mob for same Self-Care/Home Management Treatment Education Other Education Discussed and educated pt in bowel program handout w/ recommendations to discuss w/ physician use of magnesium or vit C. Discussed & edcuated pt in Pelvic Brace with Daily Activities handout. Activities Self-Care/Home Management Activities Issued Bowel Program and Pelvic Brace with Daily Activities handouts. PT-OP-T Assessment and Plan Start: 02/27/23 07:56 Freq: Status: Active Protocol: Document 08/14/23 08:03 LRN (Rec: 08/14/23 08:55 LRN [id number]) Physical Therapy Assessment Goals Four Impairment Initial Assessment: Umbilicus 4 above: Xiphoid Process: Closed Umbilicus 3 above: 2 finger widths Umbilicus 2 above: 2 finger widths Umbilicus 1 above: 2 finger widths Umbilicus Umbilicus: 1 below: 1 finger widths Umbilicus: 2 below: 1 finger widths Umbilicus: 3 below: 1 finger widths Umbilicus: 4 below: Pubic Symphysis closed Short Term Goal (STG) Pt will be educated in best practice to minimize DR with transfers using sheet/towel method. STG Duration 03/20/23 (04/07/23: MET GOAL) Obiee Lead Developer Goal (LTG) Decrease DR, greater expected decrease to occur in > 6 months due to post hormonal changes. : Umbilicus 4 above: Xiphoid Process: Closed Umbilicus 3 above: Closed Umbilicus 2 above: Closed Umbilicus 1 above: 1/2 finger , very, very shallow Umbilicus Umbilicus: 1 below: 1/2 finger, very, very shallow Umbilicus: 2 below: Closed Umbilicus: 3 below: Closed Umbilicus: 4 below: Pubic Symphysis closed LTG Duration 08/27/23 (07/17/23: MET GOAL ). Three Impairment Decreased function Impairment Lower abdominal/pelvic floor/ LBP with lifting her child Limited with exercise due to onset of lower abdominal/LB/ Pelvic pain. Short Term Goal (STG) Pt will be educated in proper sitting/standing posture and educated in proper body mechanics for ADLs and exercise. 07/17/23: Reviewed/Educated pt in PF stabilization with proper abdominal pressure system (proper breathwork) for exercise. STG Duration 03/27/23 (04/17/23: MET GOAL) Jail Goal (LTG) Pt educated in proper transfers and functional mobility to lessen core abdominal pressure with pt able to return to modified exercise and functional activities with minimal onset of lower abdominal/PF/LBP. 04/24/23: Pt educated in proper transfers with proper breathwork to to lessen core abdominal pressure. 06/25/23: Added Trunk Rot strengthening for DR and core stab. 05/21/23: Review with handout issued for log roll transfer to protect DR. 06/12/23: Started TM ex. Reviewed proper transfers cuing for TA tightening and breathwork, pt mostly performing correctly unless emergent need to help her child. 08/04/12: Reviewed coordination of breathwork for core pressure management. Educated pt in HEP of Pelvic Brace w/Daily Activities wtih discussion of breathwork coordinating with activity. LTG Duration 06/28/23 (08/14/23: MET GOAL) Two Impairment Lower abdominal, PF, and LBP rated 1-2/10. Short Term Goal (STG) Pt will be educated in self care pain/inflammation management with cold pack and RICE technique. STG Duration 03/13/23 (04/17/23: MET GOAL ) Obiee Lead Developer Goal (LTG) Pt will be educated in proper hydration norms, BM massage and proper bowel care with lessening of onset of lower abdominal/PF/LBP to minimal or pt tolerable level. 06/04/23: Pt educated in proper hydration norm, & BM massage. 06/12/23: STM reducing abdominal cramping to occasional. 08/14/23: Educated pt in Bowel care program LTG Duration 05/10/23 (08/14/23: MET GOAL) One Impairment Pt lacks self care HEP. Short Term Goal (STG) Pt will be independent in appropriate self care & hip stretches. 04/17/23: I/S pt in hip ER stretch (Fig 4) 07/03/23: I/S pt in R hip ER- fig4 stretch and L IR (Lateral hip, piriformis). STG Duration 05/29/23 (07/03/23: MET GOAL) Jail Goal (LTG) Pt will be independent in appropriate PF (to decrease urinary leakage) & core strengthening ex's to improve posture of rib cage over hips. 05/21/23: HEP: TA strengthening 4pt & sidelie, instructions can be done in sit/stand. 07/17/23: HEP: Side plank, Prone knee to elbow. 06/12/23: I/S pt in trunk rot. 08/06/23: Self abdominal STM. 08/14/23: Review of self abdominal stretching and self TrP treatment to diaphragm for lower-mid L abdominal pain. LTG Duration 05/29/23 (08/14/23: MET GOAL) Assessment Summary Assessment Pt is a 33 yo female who initially presented 10 months s/p miscarriage and D&E surgery of her 17 wk fetus. Pt had pelvic pain since surgery and had been diagnosed with PF congestion. Her lower abdominal pain is minimal and when present associated to her menstual cycle for only a day or two. She does not at this time appear to need self PF stretching with a wand for her PF pain, but will need to continue abdominal/hip stretching to help manage her pain. Her Diastasis Rectus appears to have closed. She is recently recovering from a respiratory condition that caused her much coughing and appears to have strained her diaphragm on the L side with active trigger points evident. She responded well to manual treatment with lessening of tightness and discomfort. She did have lower abdominal discomfort that she has managed to decrease with self stretching. Manual therapy today helped to promote further normalization of soft tissue mobility in the L lower abdomen. The pt has a self senior care program that she has been doing that has helped to minimize onset of lower abdominal pain; therefore the pt feels confident to continue on her own with her HEP and will be discharged from physical therapy. Due to the pt's potential for PF congestion; PT in the future for flare ups would be appropriate. Physical Therapy Plan Discharge Physical Therapy Discharge Comments As mentioned above, it would be appropriate to refer for PF therapy in the future if illness or other circumstances result in PF pain that the pt is not able to recover on her own HEP. Thank you for your referral.
== END 2023-08-17 14:37 | disposition home or self-care (01) ==
LOC: PHYS 08:00
PROVIDERS: Family Provider Nurse Practitioner; PCP Nurse Practitioner; Referring Provider Nurse Practitioner; Visit Provider Nurse Practitioner
DX: R10.2 Pelvic and perineal pain (principal); G89.29 Other chronic pain; N94.89 Other specified conditions associated with female genital organs and menstrual cycle; N39.3 Stress incontinence (female) (male); M54.50 Low back pain, unspecified; K59.00 Constipation, unspecified; M62.00 Separation of muscle (nontraumatic), unspecified site
CPT/HCPCS: 97110; 97140; 97162; 97530; 97535

== ENCOUNTER → 2023-10-03 15:34 | Outpatient (CLI) | payer BC, SELFPAY | PROVIDERS: Family Provider Nurse Practitioner; PCP Nurse Practitioner; Visit Provider Registered Nurse | DX: R30.0 Dysuria (principal) | CPT/HCPCS: 87086 ==

== ENCOUNTER → 2024-06-06 15:58 | Outpatient (CLI) | payer BC, SELFPAY | PROVIDERS: Family Provider Nurse Practitioner; PCP Family Medicine; Visit Provider Family Medicine | DX: R31.21 Asymptomatic microscopic hematuria (principal) | CPT/HCPCS: 87086 ==

== ENCOUNTER → 2024-06-16 09:46 | Outpatient (CLI) | payer BC, SELFPAY ==
--- NOTE | 2024-06-16 09:47 | DI.US.S_ITS ---
PROCEDURE: US PELVIC COMPLETE INDICATIONS: HISTORY OF PELVIC CONGESTION. RECENT INCREASING PAIN. TECHNIQUE: Real-time scanning was performed of the pelvic organs, with image documentation. Additional endovaginal scanning was necessary due to incomplete visualization of the adnexal and endometrial structures by transabdominal scanning. COMPARISON: [facility], US, US PELVIC COMPLETE, 08/25/2022, 14:57. FINDINGS: Uterus: Uterus is retroverted and normal in size at 7.0 x 5.7 x 4.0 cm. The myometrium is homogeneous. The endometrium measures 6.7 mm combined thickness. Ovaries: The right ovary measures 4.2 x 2.0 x 1.4 cm, with a calculated ovarian volume of 6.3 cc. The left ovary measures 2.5 x 1.5 x 1.3 cm, with a calculated ovarian volume of 2.5 cc. The ovaries have a normal sonographic appearance. Less than 12 follicles can be seen in each ovary. No adnexal masses are seen. Mild prominence of the adnexal veins bilaterally. Other: No pathologic free abdominal or pelvic fluid. IMPRESSION: Mild prominence the adnexal veins bilateral which can be related to pelvic congestion syndrome. Recommend correlation to patient's symptoms as well as CTA may be obtained as clinically indicated for further evaluation We strive to produce accurate, complete, and clear reports of imaging services. To assist us in improving patient care, this report was composed using standard report templates and voice recognition software. Therefore, it may contain abnormal punctuation, insertions and/or omissions. Occasional wrong-word or sound-alike substitutions may occur. Though we review the report and make efforts to correct it, we do recommend that the report be read carefully in proper context to recognize any text inaccuracies. Dictated by: Leelee German M.D. on 06/16/2024 at 16:02 Approved by: Leelee German M.D. on 06/16/2024 at 16:06
== END ==
PROVIDERS: Family Provider Nurse Practitioner; PCP Family Medicine; Referring Provider Family Medicine; Visit Provider Family Medicine
DX: R10.2 Pelvic and perineal pain (principal); G89.29 Other chronic pain
CPT/HCPCS: 76830; 76856

== ENCOUNTER → 2024-07-18 09:45 | Outpatient (CLI) | payer BC, SELFPAY ==
--- NOTE | 2024-07-18 09:46 | DI.CT.S_ITS ---
PROCEDURE: CT ANGIO ABDOMEN PELVIS INDICATIONS: Pelvic congestion TECHNIQUE: After the administration of intravenous contrast, 2.0 mm sections acquired from the diaphragm to the iliac crests during venous phase imaging. 2 mm coronal and sagittal reformats were then performed. For radiation dose reduction, the following was used: automated exposure control. COMPARISON: [facility], CT, CT ANGIO ABDOMEN PELVIS, 12/11/2022, 10:31. FINDINGS: Image quality: Diagnostic. Gonadal veins: Both the right and left gonadal veins are significantly dilated consistent with reflux, giving rise to paraovarian varicosities. The right gonadal vein is noted to drain into the inferior vena cava. The left gonadal vein demonstrates typical drainage into the left renal vein. Both gonadal veins measure 0.9 cm in diameter. Lower chest: Unremarkable. ABDOMEN: Liver: No solid mass. Gallbladder: No radiopaque gallstones or wall thickening. Biliary ducts: No biliary dilation. Pancreas: No ductal dilation. Spleen: Size is within normal limits. Adrenal Glands: No adrenal nodules. Kidneys and Ureters: No hydronephrosis. No solid mass. No complex renal cystic lesion which requires follow up. Stomach and Bowel: Normal colonic caliber, without significant wall thickening. Peritoneum: No abnormal intraperitoneal fluid. No free air. Ventral Wall: No hernia. Abdominal Nodes: No retroperitoneal or mesenteric adenopathy by size criteria. Vessels: Aorta, as above. Normal IVC. PELVIS: Pelvic Organs: Uterus is retroverted. No adnexal masses.. Bladder: Unremarkable. Pelvic Nodes: No enlarged lymph nodes. Miscellaneous: No inguinal hernias are seen. Bones: No aggressive osseous abnormality. IMPRESSION: Anatomical findings support a clinical diagnosis of pelvic venous congestion syndrome. Dictated by: Ravi Morse M.D. on 07/19/2024 at 8:58 Approved by: Ravi Morse M.D. on 07/19/2024 at 9:10
== END ==
PROVIDERS: Family Provider Nurse Practitioner; PCP Family Medicine; Referring Provider Family Medicine; Visit Provider Family Medicine
DX: N94.89 Other specified conditions associated with female genital organs and menstrual cycle (principal)
CPT/HCPCS: 74174; Q9967

== ENCOUNTER → 2024-10-27 14:23 | Outpatient (CLI) | payer OTHER, SELFPAY | PROVIDERS: Family Provider Nurse Practitioner; PCP Family Medicine; Visit Provider Nurse Practitioner Family | DX: R30.0 Dysuria (principal) | CPT/HCPCS: 87086 ==

== ENCOUNTER → 2024-10-29 13:17 | Outpatient (CLI) | payer OTHER, SELFPAY | PROVIDERS: Family Provider Nurse Practitioner; PCP Family Medicine; Referring Provider Nurse Practitioner Family; Visit Provider Nurse Practitioner Family | DX: R30.0 Dysuria (principal) | CPT/HCPCS: 87086 ==

== ENCOUNTER 2025-02-20 17:24 | Emergency (ER) | payer OTHER, SELFPAY ==
[2025-02-20 17:29] VITALS: BP 135/82; PULSE 73; RESP 16; TEMP 36.6; O2SAT 99; BMI 26.5
--- NOTE | 2025-02-20 17:44 | EKG_ITS ---
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
[2025-02-20 17:48] LABS: Appearance Urine UA SL CLOUDY; Bilirubin Urine UA NEGATIVE (NEGATIVE); Glucose Urine UA NEGATIVE (Negative); Ketones Urine UA NEGATIVE (NEGATIVE); Leukocyte Esterase Urine UA NEGATIVE (NEGATIVE); Nitrite Urine UA NEGATIVE (Negative); Occult Blood Urine UA 3+ (Negative); Protein Urine UA NEGATIVE (Negative); Specific Gravity Urine UA <=1.005 (1.000-1.035); Urobilinogen Urine UA 0.2 E.U./dL (0.2)
[2025-02-20 17:50] LABS: Color Urine UA PINK
[2025-02-20 17:54] LABS: Bacteria Urine Occasional (0-1); Culture Indicated Urine Cult Not Indicated; RBC Urine 1-5/HPF (0-5/HPF); Squamous Epithelial Cell Urine 0-1 /HPF (0-5/HPF); Urine Volume 10mL (spun); WBC Urine 0-1/HPF (0-5/HPF)
[2025-02-20 18:01] LABS: Add Manual Diff / Slide Review NO; Basophils Absolute Auto 100 /uL (0-100); Basophils Percent Auto 0.6 % (0-2); Eosinophils Absolute Auto 300 /uL (0-450); Eosinophils Percent Auto 3.3 % (2-4); Hematocrit 40.2 % (36-46); Hemoglobin 13.7 g/dL (12.0-16.0); Lymphocytes Absolute Auto 3100 /uL (1100-4500); Lymphocytes Percent Auto 35.2 % (25-40); Mean Corpuscular Hemoglobin 31.7 PG (26-34); Mean Corpuscular Volume 93.1 fL (80-100); Monocytes Absolute Auto 600 /uL (0-900); Neutrophils Absolute Auto 4800 /uL (1500-7000); Neutrophils Percent Auto 53.9 % (50-75); Platelet Count 231 X10^3/uL (150-400); Red Blood Cell Count 4.32 X10^6/uL (4.0-5.2); Red Cell Distribution Width 12.7 % (11.6-14.8); White Blood Cell Count 8.9 X10^3/uL (4.5-11.0)
[2025-02-20 18:14] LABS: Alanine Aminotransferase 18 IU/L (<35); Albumin 4.6 g/dL (3.5-5.0); Albumin Globulin Ratio 1.6 (1.0-2.8); Alkaline Phosphatase 72 U/L (38-126); Aspartate Aminotransferase 25 IU/L (14-36); Bilirubin Total 0.4 mg/dL (0.2-1.3); Blood Urea Nitrogen 13 mg/dL (7-17); Calcium 9.1 mg/dL (8.4-10.2); Carbon Dioxide 24 mmol/L (22-32); Chloride 104 mmol/L (98-107); Estimated Glomerular Filt Rate > 60 mL/min (>60); Globulin 2.9 g/dL (1.7-4.1); Glucose 92 mg/dL (70-99); HEMOLYSIS < 15 (0-50); Lipase 52 U/L (23-300); Potassium 3.5 mmol/L (3.4-5.1); Sodium 138 mmol/L (137-145); Total Protein 7.5 g/dL (6.3-8.2)
== END 2025-02-20 20:56 | disposition left against medical advice (07) ==
PROVIDERS: Emergency Medicine; Emergency Provider Emergency Medicine; Family Provider Nurse Practitioner; PCP Family Medicine
DX: R10.12 Left upper quadrant pain (principal); R07.9 Chest pain, unspecified; M54.2 Cervicalgia; M25.512 Pain in left shoulder
CPT/HCPCS: 36415; 80053; 81001; 83690; 85025; 93005; 99283

== ENCOUNTER → 2025-02-21 16:42 | Outpatient (CLI) | payer OTHER, SELFPAY ==
[2025-02-21 18:27] LABS: TSH w/ Reflex to FT4 0.74 uIU/mL (0.47-4.68)
[2025-02-28 14:11] LABS: Deamidated Gliadin Ab IgA 2 units (0-19); Deamidated Gliadin Ab IgG 3 units (0-19); Immunoglobulin A,Qn 132 mg/dL (87-352); t-Transglutaminase IgA <2 U/mL (0-3)
== END ==
PROVIDERS: Family Provider Nurse Practitioner; PCP Family Medicine; Referring Provider Family Medicine; Visit Provider Family Medicine
DX: R10.12 Left upper quadrant pain (principal); R19.5 Other fecal abnormalities; Z83.79 Family history of other diseases of the digestive system
CPT/HCPCS: 36415; 82784; 83516; 84443

== ENCOUNTER → 2025-02-25 10:58 | Outpatient (CLI) | payer OTHER, SELFPAY | LOC: LAB 11:00 | PROVIDERS: Family Provider Nurse Practitioner; PCP Family Medicine; Referring Provider Family Medicine; Visit Provider Family Medicine | DX: R10.12 Left upper quadrant pain (principal); R19.5 Other fecal abnormalities; Z83.79 Family history of other diseases of the digestive system | CPT/HCPCS: 83993; 87338 ==

== ENCOUNTER → 2025-02-28 09:30 | Outpatient (CLI) | payer OTHER, SELFPAY ==
--- NOTE | 2025-02-28 09:32 | DI.CT.S_ITS ---
PROCEDURE: CT ABDOMEN PELVIS W CON INDICATIONS: LUQ pain, Fx Hx of UC, changes in stool TECHNIQUE: After the administration of intravenous contrast, axial sections acquired from the lung bases to the pubic symphysis. Coronal and sagittal reformats were performed. For radiation dose reduction, the following was used: automated exposure control, adjustment of mA and/or kV according to patient size. COMPARISON: [facility], CT, CT ANGIO ABDOMEN PELVIS, 07/18/2024, 9:59. [facility], CT, CT ANGIO ABDOMEN PELVIS, 12/11/2022, 10:31. [facility], CT, CT ABDOMEN PELVIS WO/W CON, 11/04/2021, 11:05. [facility], CT, CT KIDNEY URETER BLADDER (KUB), 06/12/2021, 12:44. [facility], CT, CT ABDOMEN PELVIS W CON, 02/06/2021, 20:03. FINDINGS: Image quality: Diagnostic. Lower Chest: No significant findings. ABDOMEN: Liver: No solid mass. Gallbladder: No radiopaque gallstones or wall thickening. Biliary ducts: No biliary dilation. Pancreas: No ductal dilation. Spleen: Size is within normal limits. Adrenal Glands: No adrenal nodules. Kidneys and Ureters: No hydronephrosis. No solid mass. No complex renal cystic lesion which requires follow up. Stomach and Bowel: Normal colonic caliber, without significant wall thickenin the left colon is decompressed. There are no clear findings of segmental colitis noted. Peritoneum: No abnormal intraperitoneal fluid. No free air. Ventral Wall: No significant ventral hernia. Abdominal Nodes: No retroperitoneal or mesenteric adenopathy by size criteria. Vessels: Aorta and inferior vena cava are normal in size. PELVIS: Pelvic Organs: Uterus is retroverted. Left gonadal vein is dilated with prolonged reflux giving rise to pelvic varicosities.. Bladder: No bladder wall thickening, accounting for underdistention. Pelvic Nodes: No enlarged lymph nodes. Miscellaneous: No inguinal hernias are seen. Bones: No aggressive osseous abnormality. IMPRESSION: 1. No acute abdominal process noted. No definitive CT findings of a segmental colitis. 2. Retroverted uterus. 3. Findings of a dilated left gonadal vein with prolonged reflux giving rise to pelvic varicosities CAD, and certain patients, correlate with a clinical syndrome of chronic pelvic venous congestion. Dictated by: Ravi Morse M.D. on 02/28/2025 at 11:10 Approved by: Ravi Morse M.D. on 02/28/2025 at 11:17
== END ==
LOC: CT 09:30
PROVIDERS: Family Provider Nurse Practitioner; PCP Family Medicine; Referring Provider Family Medicine; Visit Provider Family Medicine
DX: N85.4 Malposition of uterus (principal); I86.8 Varicose veins of other specified sites; R10.12 Left upper quadrant pain; R19.5 Other fecal abnormalities; Z83.79 Family history of other diseases of the digestive system
CPT/HCPCS: 74177; Q9967

== ENCOUNTER → 2025-04-13 08:04 | Outpatient (CLI) | payer OTHER, SELFPAY ==
--- NOTE | 2025-04-13 08:05 | DI.US.S_ITS ---
PROCEDURE: US SOFT TISSUE HEAD AND NECK INDICATIONS: Neck mass TECHNIQUE: Real-time scanning was performed of the neck region of interest, with image documentation. COMPARISON: None. FINDINGS: Two left lateral palpable abnormalities correspond to ovoid, reniform lymph nodes in the cervical chain measuring 0.5 and 0.2 cm in cross-section. These are both superficial to the sternocleidomastoid muscle and subcutaneous. There is appropriate hilar vascular flow. No other abnormalities. IMPRESSION: Left neck palpable abnormalities correspond to benign appearing cervical chain lymph nodes. Dictated by: Lesa Rod M.D. on 04/13/2025 at 21:50 Approved by: Lesa Rod M.D. on 04/13/2025 at 21:52
== END ==
PROVIDERS: Family Provider Nurse Practitioner; PCP Family Medicine; Referring Provider Family Medicine; Visit Provider Family Medicine
DX: R22.1 Localized swelling, mass and lump, neck (principal)
CPT/HCPCS: 76536

== ENCOUNTER → 2025-04-17 14:08 | Outpatient (CLI) | payer OTHER, SELFPAY ==
[2025-04-17 15:00] LABS: Add Manual Diff / Slide Review NO; Basophils Absolute Auto 100 /uL (0-100); Basophils Percent Auto 1.1 % (0-2); Eosinophils Absolute Auto 300 /uL (0-450); Eosinophils Percent Auto 3.7 % (2-4); Hematocrit 39.8 % (36-46); Hemoglobin 13.6 g/dL (12.0-16.0); Lymphocytes Absolute Auto 2400 /uL (1100-4500); Mean Corpuscular HGB Conc 34.3 % (30-36); Mean Corpuscular Hemoglobin 31.8 PG (26-34); Mean Corpuscular Volume 92.9 fL (80-100); Monocytes Absolute Auto 500 /uL (0-900); Neutrophils Absolute Auto 3800 /uL (1500-7000); Neutrophils Percent Auto 54.2 % (50-75); Platelet Count 254 X10^3/uL (150-400); Red Blood Cell Count 4.28 X10^6/uL (4.0-5.2)
[2025-04-17 15:34] LABS: Alanine Aminotransferase 23 IU/L (<35); Albumin 4.5 g/dL (3.5-5.0); Albumin Globulin Ratio 1.6 (1.0-2.8); Alkaline Phosphatase 68 U/L (38-126); Aspartate Aminotransferase 24 IU/L (14-36); BUN Creatinine Ratio 15.9 (6-22); Bilirubin Total 0.3 mg/dL (0.2-1.3); Blood Urea Nitrogen 11 mg/dL (7-17); Calcium 9.3 mg/dL (8.4-10.2); Carbon Dioxide 26 mmol/L (22-32); Chloride 106 mmol/L (98-107); Estimated Glomerular Filt Rate > 60 mL/min (>60); Globulin 2.9 g/dL (1.7-4.1); Glucose 93 mg/dL (70-99); HEMOLYSIS < 15 (0-50); Potassium 4.3 mmol/L (3.4-5.1); Sodium 139 mmol/L (137-145); Total Protein 7.4 g/dL (6.3-8.2)
== END ==
LOC: LAB 14:09
PROVIDERS: Family Provider Nurse Practitioner; PCP Family Medicine; Referring Provider Family Medicine; Visit Provider Family Medicine
DX: R42 Dizziness and giddiness (principal); R11.0 Nausea; R31.21 Asymptomatic microscopic hematuria
CPT/HCPCS: 36415; 80053; 84443; 85025; 86038

== ENCOUNTER → 2025-05-23 12:00 | Outpatient (CLI) | payer OTHER, SELFPAY ==
--- NOTE | 2025-05-23 12:02 | DI.RAD.S_ITS ---
PROCEDURE: XR HIP W PEL IF DONE BILAT 2V INDICATIONS: worsening pain TECHNIQUE: AP pelvis with lateral view(s) of the bilateral hip(s). COMPARISON: None. FINDINGS: Bones: No fractures or dislocations. Pelvic ring appears intact. No suspicious bony lesions. Soft tissues: The visualized bowel gas pattern is normal. No suspicious soft tissue calcifications. IMPRESSION: No acute bony abnormality. Dictated by: Henok Snow M.D. on 05/25/2025 at 6:02 Approved by: Henok Snow M.D. on 05/25/2025 at 6:03
--- NOTE | 2025-05-23 12:02 | DI.RAD.S_ITS ---
PROCEDURE: XR KNEE STANDING BI INDICATIONS: worsening pain TECHNIQUE: 3 views of the knee(s) COMPARISON: None. FINDINGS: Bones: No acute fractures or dislocations. Patellar alignment is normal on the sunrise view. No suspicious bony lesions. Joint spaces appear normal with weightbearing. Soft tissues: No knee joint effusions. No suspicious soft tissue calcification. IMPRESSION: No evidence of acute osseous abnormality. Dictated by: Henok Snow M.D. on 05/25/2025 at 6:03 Approved by: Henok Snow M.D. on 05/25/2025 at 6:04
== END ==
PROVIDERS: PCP Family Medicine; Referring Provider Family Medicine; Visit Provider Family Medicine
DX: M25.551 Pain in right hip (principal); M25.552 Pain in left hip; M25.561 Pain in right knee; M25.562 Pain in left knee; G89.29 Other chronic pain
CPT/HCPCS: 73521; 73565

== ENCOUNTER → 2025-07-10 | Outpatient (CLI) | payer OTHER, SELFPAY ==
--- NOTE | 2025-07-10 10:56 | DI.US.S_ITS ---
PROCEDURE: US FINE NEEDLE ASPIRATION INDICATIONS: Mass on neck/ thyroid nodule TECHNIQUE: The indications, alternatives, benefits, risks, and complications of the procedure were explained to the patient. Written informed consent was obtained and placed in the chart. The area of interest was examined sonographically and a site was chosen for ultrasound guided percutaneous sampling. The skin was prepared and draped in the usual fashion, and anesthetized with 2% lidocaine infiltrated from the skin down to the lesion, 5cc. Multiple passes were then performed, with contents emptied into an appropriate pathology specimen container. A bandage was applied to the area of access at completion of the study. COMPARISON: None. FINDINGS: Location(s) of lesion(s) sampled: Left inferior lobe [facility]: 25 gauge hypodermic needles an 22 gauge spinal needle. Number of passes: 5 Medications: 2% lidocaine for local anaesthesia. Complications: None. IMPRESSION: Successful ultrasound-guided left thyroid lobe nodule fine needle aspiration, with cytology results pending. Dictated by: Eduardo Glaser M.D. on 07/10/2025 at 13:54 Approved by: Eduardo Glaser M.D. on 07/10/2025 at 13:55
--- NOTE | 2025-07-10 12:31 | PATH_ITS ---
Note [facility] Accession Number: [id number] TESTS RESULT FLAG UNITS REF RANGE LAB Clinician Provided Cytology Information No. of containers..02 Other (Miscellaneous) 70 Unknown Storage/container code(s) Source: LEFT THYROID NODULE#1 DIAGNOSIS: LEFT THYROID NODULE#1, FINE NEEDLE ASPIRATION. INADEQUATE, INSUFFICIENT FOLLICULAR CELLS FOR STUDY. [place] CATEGORY I. RE-ASPIRATION RECOMMENDED. Pathologist ICD10: R22.1 Signed out by: Anuj Middleton MD, Pathologist NPI- [id number] Performed by: Ronaldo Nguyễn, Fuel Conversion Technician ([facility]) Gross description: 50 CC, COLORLESS, CLEAR RECIEVED: IN ALCOHOL AND CYTOLYT WITH 3 ALCOHOL FIXED AND 4 QUICK STAINED SLIDES ALSO 1 RNA VIAL WILL ON 11-10-2026.VO /VDU 07/11/[address] [place] [address] FLAG LEGEND: L-Low Normal,H-High Normal,LL-Alert Low,HH-Alert High <-Panic Low,>-Panic High,A-Abnormal,AA-Critical Abnormal Performed at: 01 =Z [facility], [place] [address] Alfonso Romano MD, Performed at: [address] [facility], [place], [place] [id number] MD Alfonso Romano MD Phone: [phone]
== END ==
LOC: US 10:55
PROVIDERS: PCP Family Medicine; Referring Provider Family Medicine; Visit Provider Radiology Diagnostic Radiology
DX: E04.1 Nontoxic single thyroid nodule (principal); R22.1 Localized swelling, mass and lump, neck
CPT/HCPCS: 10005

== ENCOUNTER → 2025-08-11 09:53 | Outpatient (CLI) | payer OTHER, SELFPAY ==
--- NOTE | 2025-08-11 | PATH_ITS ---
Note [facility] Accession Number: [id number] TESTS RESULT FLAG UNITS REF RANGE LAB Clinician Provided Cytology Information No. of containers..01 Other (Miscellaneous) No. of containers..02 Previously Prepared Cytology Slide Source: LEFT THYROID NODULE INFERIOR #1 DIAGNOSIS: LEFT THYROID NODULE INFERIOR #1 ATYPIA OF UNDETERMINED SIGNIFICANCE. B[place]DA CATEGORY III. 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 Pathologist ICD10: R89.6 Signed out by: Moira Arevalo DO, Pathologist NPI- [id number] Performed by: Kofi Tapia, Lion Trainer ([facility]) Gross description: 30 CC, RED, CLEAR RECIEVED: IN CYTOLYT WITH 6 ALCOHOL FIXED AND 6 QUICK STAINED SLIDES ALSO 1 RNA VIAL WILL ON 11-10-2026.VO /VDU 08/14/2025 114[address] FLAG LEGEND: L-Low Normal,H-High Normal,LL-Alert Low,HH-Alert High <-Panic Low,>-Panic High,A-Abnormal,AA-Critical Abnormal Performed at: 01 =Z [facility], [place] [address] Alfonso Romano MD, Performed at: [facility] [address] [place] [address] [address], [place], [place] [id number] MD Alfonso Romano MD Phone: [phone]
--- NOTE | 2025-08-11 09:55 | DI.US.S_ITS ---
PROCEDURE: US FINE NEEDLE ASPIRATION INDICATIONS: THYROID TECHNIQUE: The indications, alternatives, benefits, risks, and complications of the procedure were explained to the patient. Written informed consent was obtained and placed in the chart. The thyroid region was examined sonographically and a site was chosen for ultrasound guided percutaneous sampling. The skin was prepared and draped in the usual fashion, and anesthetized with 1% lidocaine infiltrated from the skin down to the thyroid gland. Multiple passes were then performed, with contents emptied into an appropriate pathology specimen container. A bandage was applied to the area of access at completion of the study. COMPARISON: [facility], US, US FINE NEEDLE ASPIRATION, 07/10/2025, 11:17. FINDINGS: Location(s) of lesion(s) sampled: Nodule 1. Left inferior [place]: 22 & 25 gauge hypodermic needles. Number of passes: 6 Medications: 1% lidocaine for local anaesthesia. Complications: None. IMPRESSION: Successful ultrasound-guided thyroid nodule fine needle aspiration, with cytology results pending. Please see chart below for management recommendations based on cytology results. [facility] ReportingRecommendationsNon-diagnostic* Repeat US-guided FNA, with on-site cytology evaluation if possible. * Repeated non-diagnostic nodules without high suspicion US features: close observation vs surgical consult. * Consider surgery if nodule has high suspicion US features, grows >20% in 2 dimensions on followup, or patient has clinical risk factors for malignancy. Benign* If nodule has high suspicion US features: repeat US and FNA within 12 months. * If nodule has low to intermediate suspicion US features: repeat US at 12-24 months. If nodule grows (20% increase in at least 2 dimensions, with minimal increase of 2 mm or >50% change in volume), or development of new suspicious US features, then repeat FNA or continue followup. * If nodule has very low suspicion US features: followup US at >24 months. Atypia of undetermined significance, follicular lesion of undetermined significanceRepeat FNA, molecular testing, followup US, or surgical consult.Follicular neoplasm, suspicious for follicular neoplasmSurgical consult; also consider molecular testing. Suspicious for malignancySurgical consult.MalignantSurgical consult. Dictated by: Abbey CRAMER Interpreted: Trey Peng MD on 08/11/2025 at 14:48 Transcribed by: SAMIA on 08/11/2025 at 14:48 Approved by: Trey Peng M.D. on 08/11/2025 at 16:36
== END ==
LOC: US 09:54
PROVIDERS: PCP Family Medicine; Referring Provider Family Medicine; Visit Provider Family Medicine
DX: E04.1 Nontoxic single thyroid nodule (principal)
CPT/HCPCS: 10005